=== PATIENT | female | born 1935 | race Caucasian/White ===

== ENCOUNTER 2016-09-27 07:01 | Emergency (ER) | payer MEDICARE, OTHER ==
--- NOTE | 2016-09-27 07:16 | ED.PDOC ---
History of Present Illness - General Chief Complaint: General Stated Complaint: cough/sob Time Seen by Provider: 09/27/16 07:15 Source: patient, RN notes reviewed, Vital Signs reviewed, family - hsband Exam Limitations: no limitations - History of Present Illness Initial Comments: Ms. Calixto,76 y/o female stated had cough /SOB for 3 weeks not getting any better had been on 3 diiferrent antibiotics the last 3 weeks admitted to hospital 2 weeks ago stayed for 5 days treated for pneumonia. Timing/Duration: other - 3 weeks ago Severity: moderate Improving Factors: nothing Worsening Factors: nothing Associated Symptoms: shortness of breath Allergies/Adverse Reactions: Allergies Codeine Allergy (Verified 09/12/16 23:20) Home Medications: Ambulatory Orders Acetaminophen [Tylenol] 325 mg PO Q4HR PRN 09/13/16 Carvedilol 12.5 mg PO BID 09/13/16 Fluoxetine HCl [PROzac] 20 mg PO DAILY 09/13/16 Gabapentin 300 mg PO DAILY 09/13/16 Hydralazine HCl 50 mg PO BID 09/13/16 Losartan Potassium 50 mg PO BID 09/13/16 Omeprazole 20 mg PO DAILY 09/13/16 Benzonatate Perles [Tessalon Perles] 100 mg PO BID PRN 09/27/16 Montelukast Sodium [Singulair] 10 mg PO [facility] #30 tab 09/27/16 predniSONE [Prednisone] 10 mg PO BID #14 tab 09/27/16 Review of Systems - Review of Systems Constitutional: States: malaise EENTM: States: no symptoms reported Respiratory: States: see HPI Cardiology: States: no symptoms reported Gastrointestinal/Abdominal: States: no symptoms reported Genitourinary: States: other - OAB Musculoskeletal: States: no symptoms reported Skin: States: no symptoms reported Neurological: States: no symptoms reported Endocrine: States: no symptoms reported Past Medical History (General) - Patient Medical History Hx Cardiac Disorders: Yes Hx Renal Disease: Yes Surgical History: appendectomy, cholecystectomy, other - pacemaker-bradycardia, colon-diverticulitis,shoulder,cataract - Vaccination History Hx Tetanus, Diphtheria Vaccination: Yes Hx Pneumococcal Vaccination: Yes Family Medical History - Family History Mother Family History: Unknown Hx Cardiac Disease: Yes Hx Family Cancer: Yes - gastric,colon prostate,lung Physical Exam - Physical Exam General Appearance: Alert, Anxious, No apparent distress Eye Exam: bilateral normal Ears, Nose, Throat: hearing grossly normal, normal ENT inspection, normal pharynx Neck: non-tender, full range of motion, supple, normal inspection Respiratory: chest non-tender, no respiratory distress, no accessory muscle use , rhonchi, wheezing, other - speaks in fullsentences Cardiovascular/Chest: normal peripheral pulses, regular rate, rhythm, no edema Peripheral Pulses: radial,right: 2+, radial,left: 2+ Gastrointestinal/Abdominal: normal bowel sounds, non tender, soft Back Exam: normal inspection, no CVA tenderness, no vertebral tenderness Extremity: normal range of motion, non-tender, normal inspection Neurologic: no motor/sensory deficits, alert, normal mood/affect, oriented x 3 Progress - Progress Progress: 09/27/16 08:50 [id number] sinus rhythm noacute changes;CXR-chronic infiltrates no effusion, consolidation pneumothorax - Results/Orders Results/Orders: 09/27/16 07:27 URINALYSIS Stat 09/27/16 07:29 IV Care:Saline Lock per Protoc QSHIFT SVN/Updraft Therapy .ONCE 09/27/16 07:30 EKG STAT 09/27/16 09:00 [facility] Daily Laboratory Results WBC 11.5 K/mm3 (4.8-10.8) H 09/27/16 08:25 RBC 3.36 M/mm3 (4.20-5.40) L 09/27/16 08:25 Hgb 9.7 gm/dL (12.0-16.0) L 09/27/16 08:25 Hct 30.2 % (36.0-47.0) L 09/27/16 08:25 MCV 89.8 fl (81.0-99.0) 09/27/16 08:25 MCH 28.8 pg (27.0-31.0) 09/27/16 08:25 MCHC 32.3 g/dL (33.0-37.0) L 09/27/16 08:25 RDW 15.5 % (11.5-14.5) H 09/27/16 08:25 Plt Count 136 K/mm3 (130-400) 09/27/16 08:25 MPV 10.0 fl (7.40-10.4) 09/27/16 08:25 Absolute Neuts (auto) 9.50 K/uL (1.8-6.8) H 09/27/16 08:25 Absolute Lymphs (auto) 0.90 K/uL (1.0-3.4) L 09/27/16 08:25 Absolute Monos (auto) 0.90 K/uL (0.2-0.8) H 09/27/16 08:25 Absolute Eos (auto) 0.20 K/uL (0.0-0.4) 09/27/16 08:25 Absolute Basos (auto) 0.00 K/uL (0.0-0.1) 09/27/16 08:25 Neutrophils % 82.2 % (42.0-78.0) H 09/27/16 08:25 Lymphocytes % 7.6 % (20.0-50.0) L 09/27/16 08:25 Monocytes % 7.9 % (2.0-9.0) 09/27/16 08:25 Eosinophils % 1.9 % (1.0-5.0) 09/27/16 08:25 Basophils % 0.4 % (0.0-2.0) 09/27/16 08:25 Sodium 138 mmol/L (135-145) 09/27/16 08:25 Potassium 4.1 mmol/L (3.6-5.0) 09/27/16 08:25 Chloride 107 mmol/L (101-111) 09/27/16 08:25 Carbon Dioxide 22 mmol/L (21-31) 09/27/16 08:25 Anion Gap 13.1 (12-18) 09/27/16 08:25 BUN 25 mg/dL (7-18) H 09/27/16 08:25 Creatinine 1.83 mg/dL (0.6-1.3) H 09/27/16 08:25 BUN/Creatinine Ratio 13.7 (10-20) 09/27/16 08:25 Random Glucose 98 mg/dL (70-105) 09/27/16 08:25 Serum Osmolality 280.1 mOsm/L (275-295) 09/27/16 08:25 Calcium 8.1 mg/dL (8.4-10.2) L 09/27/16 08:25 Total Bilirubin 0.9 mg/dL (0.2-1.0) 09/27/16 08:25 AST 23 IU/L (10-42) 09/27/16 08:25 ALT 13 IU/L (10-60) 09/27/16 08:25 Alkaline Phosphatase 53 IU/L (42-121) 09/27/16 08:25 LD Total 213 IU/L (91-180) H 09/27/16 08:25 Serum Total Protein 5.6 gm/dL (6.4-8.2) L 09/27/16 08:25 Albumin 2.8 g/dl (3.2-5.5) L 09/27/16 08:25 Globulin 2.8 gm/dL (2.3-3.5) 09/27/16 08:25 Albumin/Globulin Ratio 1.0 (1.1-1.9) L 09/27/16 08:25 Departure - Departure Clinical Impression: Bronchitis with bronchospasm Time of Disposition: 09:08 Disposition: Discharge to Home or Self Care Condition: Good Instructions: DI for Chronic Bronchitis Referrals: Aristeo Miller MD [Primary Care Provider] - 1-2 Weeks Prescriptions: predniSONE [Prednisone] 10 mg PO BID #14 tab Montelukast Sodium [Singulair] 10 mg PO [facility] #30 tab Home Medications: Ambulatory Orders Acetaminophen [Tylenol] 325 mg PO Q4HR PRN 09/13/16 Carvedilol 12.5 mg PO BID 09/13/16 Fluoxetine HCl [PROzac] 20 mg PO DAILY 09/13/16 Gabapentin 300 mg PO DAILY 09/13/16 Hydralazine HCl 50 mg PO BID 09/13/16 Losartan Potassium 50 mg PO BID 09/13/16 Omeprazole 20 mg PO DAILY 09/13/16 Benzonatate Perles [Tessalon Perles] 100 mg PO BID PRN 09/27/16 Montelukast Sodium [Singulair] 10 mg PO [facility] #30 tab 09/27/16 predniSONE [Prednisone] 10 mg PO BID #14 tab 09/27/16 Additional Instructions: Increase frequency of ALBUTEROL -MDI-2 puffs every 4 hours as needed for cough/ wheezing until better
[2016-09-27] MEDS ORDERED: methylPREDNISolone SODIUM SUC 125 MG/2 ML VIAL IV ONE (07:29)
[2016-09-27] MEDS ORDERED: BENZONATATE PERLES 100 MG CAP PO ONE (07:37)
[2016-09-27] MEDS ORDERED: diphenhydrAMINE HCL 25 MG CAP PO ONE (07:39)
[2016-09-27] MEDS ORDERED: IPRATROPIUM/ALBUTEROL 3 ML VIAL NEB ONE ×3 (07:59→08:56)
[2016-09-27] MEDS ORDERED: MONTELUKAST SODIUM 10 MG TAB ONE (08:06)
[2016-09-27] MEDS ORDERED: MONTELUKAST SODIUM 10 MG TAB PO ONE (08:09)
--- NOTE | 2016-09-27 08:39 | RAD ---
EXAM DESCRIPTION: X-RAY CHEST- TWO VIEWS CLINICAL HISTORY: Cough COMPARISON: 09/12/2016 TECHNIQUE: 2.0 views of the chest FINDINGS: There are no discrete air space infiltrates, pneumothoraces or pleural effusions. Chronic prominence of the interstitial lung markings is again noted, once again most pronounced in the right lower lobe of the lung. The pulmonary vascularity is normal. There is stable position of the wires of the dual chamber right-sided pacemaker. The cardiomediastinal silhouette is stable. IMPRESSION: There are no acute lung parenchymal findings. Electronically signed by: Gordo Tucker MD 09/27/2016 08:37
[2016-09-27 08:44] VITALS: O2SAT 95
[2016-09-27 09:50] VITALS: BP 173/61; TEMP 98.1
[2016-09-27] MEDS ORDERED: MONTELUKAST SODIUM 10 MG TAB PO SCH (21:00)
== END 2016-09-27 09:49 | disposition home or self-care (01) ==
LOC: ER 07:01
DX: J40 Bronchitis, not specified as acute or chronic (principal); R06.02 Shortness of breath; Z88.6 Allergy status to analgesic agent; Z87.01 Personal history of pneumonia (recurrent); Z79.899 Other long term (current) drug therapy; N28.9 Disorder of kidney and ureter, unspecified; Z80.42 Family history of malignant neoplasm of prostate; Z80.1 Family history of malignant neoplasm of trachea, bronchus and lung; Z80.0 Family history of malignant neoplasm of digestive organs; Z95.0 Presence of cardiac pacemaker
CPT/HCPCS: 36415; 71020; 80053; 83615; 85025; 93005; 94640; J2930; J7620; Q0163

== ENCOUNTER → 2016-10-25 | Outpatient (CLI) | payer MEDICARE, OTHER ==
--- NOTE | 2016-10-25 17:24 | CT ---
EXAM DESCRIPTION: CT CHEST WITHOUT IV CONTRAST CLINICAL HISTORY: RESP INFECTION COMPARISON: Chest radiograph obtained on September 27, 2016 TECHNIQUE: Chest CT was performed without IV contrast. FINDINGS: A right-sided cardiac pacemaker and associated leads remain in place without apparent complication. There are tiny bilateral pleural effusions. The thyroid and thoracic inlet are unremarkable. Mural calcifications are noted in the thoracic aorta without aneurysm. There is no hiatal hernia. The heart is at the upper limits of normal size. Sensitivity for detection of adenopathy is limited by lack of IV contrast, but no mediastinal or hilar adenopathy is seen. The central airways are clear. There is no airspace consolidation or lung mass. There is mild platelike atelectasis or scarring in the right lung adjacent to the major fissure with a questionable 6 mm noncalcified nodule at the same location. Visualized portions of the upper abdomen are unremarkable for noncontrast technique. Colonic diverticulosis is only partially included on this exam, but there is no evidence of diverticulitis. There is no fracture or pneumothorax. . IMPRESSION: Borderline cardiomegaly with tiny bilateral pleural effusions, but no pneumonia or other acute intrathoracic abnormality. The possibility of mild CHF should be considered. Questionable 6 mm nodule in the right lung adjacent to the major fissure. As per Fleischner Society guidelines for follow-up and management of pulmonary nodules: For patient at low risk (minimal or absent history of smoking and of other known risk factors), recommend follow-up chest CT at 6-12 months then at 18-24 months if no change. For patient at high risk (history of smoking or of other known risk factors), recommend initial follow-up chest CT at 3-6 months, then at 9-12 and 24 months if no change. Electronically signed by: Carlos A Pang DO 10/25/2016 17:21
== END ==
LOC: CT 13:27
PROVIDERS: ATTEND Nurse Practitioner Family
DX: J06.9 Acute upper respiratory infection, unspecified (principal); J90 Pleural effusion, not elsewhere classified

== ENCOUNTER 2016-11-06 08:45 | Emergency (ER) | payer MEDICARE, OTHER ==
[2016-11-06 09:14] VITALS: TEMP 97
--- NOTE | 2016-11-06 09:18 | ED.PDOC ---
History of Present Illness - General Chief Complaint: GI Problem Stated Complaint: Rectal Bleeding x 1 week, intermittently Time Seen by Provider: 11/06/16 09:07 Source: patient, RN notes reviewed Exam Limitations: no limitations - History of Present Illness Initial Comments: She stated that her rectal bleeding started 7 days ago Tuesday when she went to have bowel movement noted bright bright red blood in stool then stopped.But yesterday he had another episode was advised by he HHn to come to er but declined then today she decided to come.Had previous episode of melena while she was living in [place] and was sent to [facility] for gi evaluation but was given 6 units of blood transfusion and her rectal bleeding stopped. According to her she was told that cause of her bleeding was from her diverticulosis. Had underwent multiple colonoscopies and egd in the past but reported no malignancy.She has history of afib not anticoagulated and only aspirin.She had colon resection for diverticulosis. Timing/Duration: intermittent, other - 7 days ago Improving Factors: nothing Worsening Factors: nothing Associated Symptoms: denies symptoms Allergies/Adverse Reactions: Allergies Codeine Allergy (Verified 09/12/16 23:20) Home Medications: Ambulatory Orders Acetaminophen [Tylenol] 325 mg PO Q4HR PRN 09/13/16 Carvedilol 12.5 mg PO BID 09/13/16 Fluoxetine HCl [PROzac] 20 mg PO DAILY 09/13/16 Gabapentin 300 mg PO DAILY 09/13/16 Hydralazine HCl 50 mg PO BID 09/13/16 Losartan Potassium 50 mg PO BID 09/13/16 Omeprazole 20 mg PO DAILY 09/13/16 Montelukast Sodium [Singulair] 10 mg PO [facility] #30 tab 09/27/16 Review of Systems - Review of Systems Constitutional: States: no symptoms reported EENTM: States: no symptoms reported Respiratory: States: cough - mild non productive Cardiology: States: other - exertional dyspnea Gastrointestinal/Abdominal: States: see HPI Genitourinary: States: no symptoms reported Musculoskeletal: States: no symptoms reported Skin: States: no symptoms reported Neurological: States: no symptoms reported Endocrine: States: no symptoms reported Hematologic/Lymphatic: States: no symptoms reported Past Medical History (General) - Patient Medical History Hx Cardiac Disorders: Yes Hx Congestive Heart Failure: Yes - recnt echocardiog jacob accdg. to patient Hx Pacemaker: Yes Hx Hypertension: Yes Hx Gastroesophageal Reflux: Yes - diverticulosis Hx Renal Disease: Yes Surgical History: appendectomy, cholecystectomy, pacemaker, other - shoulder, colon resection,hernia repair,hysterectomy - Vaccination History Hx Tetanus, Diphtheria Vaccination: Yes Hx Influenza Vaccination: Yes Hx Pneumococcal Vaccination: Yes - Social History Hx Tobacco Use: No Hx Alcohol Use: No Hx Substance Use: No Hx Depression: No - Activities of Daily Living Patient Lives Alone: No Shelter/Assisted Living (if applicable):: [facility] Ability: Independent Eating (Feeding) Ability: Independent Toileting Ability: Independent - Female History Patient : No Family Medical History - Family History Mother Family History: Unknown Hx Cardiac Disease: Yes Hx Family Cancer: Yes - gastric,colon prostate,lung Physical Exam - Physical Exam General Appearance: Alert, Comfortable, No apparent distress Eye Exam: bilateral normal Ears, Nose, Throat: hearing grossly normal, normal ENT inspection, normal pharynx Neck: non-tender, full range of motion, supple Respiratory: chest non-tender, lungs clear, normal breath sounds, no respiratory distress Cardiovascular/Chest: normal peripheral pulses, regular rate, rhythm, no edema, no gallop, no murmur Peripheral Pulses: radial,right: 2+, radial,left: 2+ Gastrointestinal/Abdominal: normal bowel sounds, non tender, soft, no organomegaly, no pulsatile mass Rectal Exam: normal rectal tone, black stool Back Exam: normal inspection, no CVA tenderness, no vertebral tenderness Extremity: normal range of motion, non-tender, normal inspection Neurologic: medical safety director II-XII nml as tested, no motor/sensory deficits, alert Skin Exam: normal color, warm/dry, cyanosis Progress - Results/Orders Results/Orders: 11/06/16 09:25 RH BLOOD TYPE Stat Chest,1 View [RAD] Stat URINALYSIS Stat 11/06/16 09:30 EKG STAT 11/06/16 09:37 B-TYPE NATRIURETIC PEPTIDE/BNP Stat COMPLETE METABOLIC PROFILE Stat Laboratory Results WBC 7.9 K/mm3 (4.8-10.8) 11/06/16 09:37 RBC 3.45 M/mm3 (4.20-5.40) L 11/06/16 09:37 Hgb 10.1 gm/dL (12.0-16.0) L 11/06/16 09:37 Hct 31.0 % (36.0-47.0) L 11/06/16 09:37 MCV 89.8 fl (81.0-99.0) 11/06/16 09:37 MCH 29.2 pg (27.0-31.0) 11/06/16 09:37 MCHC 32.5 g/dL (33.0-37.0) L 11/06/16 09:37 RDW 16.9 % (11.5-14.5) H 11/06/16 09:37 Plt Count 231 K/mm3 (130-400) 11/06/16 09:37 MPV 8.2 fl (7.40-10.4) 11/06/16 09:37 Absolute Neuts (auto) 4.70 K/uL (1.8-6.8) 11/06/16 09:37 Absolute Lymphs (auto) 1.50 K/uL (1.0-3.4) 11/06/16 09:37 Absolute Monos (auto) 0.90 K/uL (0.2-0.8) H 11/06/16 09:37 Absolute Eos (auto) 0.70 K/uL (0.0-0.4) H 11/06/16 09:37 Absolute Basos (auto) 0.10 K/uL (0.0-0.1) 11/06/16 09:37 Neutrophils % 59.8 % (42.0-78.0) 11/06/16 09:37 Lymphocytes % 18.5 % (20.0-50.0) L 11/06/16 09:37 Monocytes % 12.0 % (2.0-9.0) H 11/06/16 09:37 Eosinophils % 8.6 % (1.0-5.0) H 11/06/16 09:37 Basophils % 1.1 % (0.0-2.0) 11/06/16 09:37 PT 11.6 SECONDS (9.4-12.5) 11/06/16 09:37 INR 1.030 11/06/16 09:37 PTT (SP) 37.2 SECONDS (25.1-36.5) H 11/06/16 09:37 Sodium 135 mmol/L (135-145) 11/06/16 09:37 Potassium 3.8 mmol/L (3.6-5.0) 11/06/16 09:37 Chloride 104 mmol/L (101-111) 11/06/16 09:37 Carbon Dioxide 24 mmol/L (21-31) 11/06/16 09:37 Anion Gap 10.8 (12-18) L 11/06/16 09:37 BUN 21 mg/dL (7-18) H 11/06/16 09:37 Creatinine 1.62 mg/dL (0.6-1.3) H 11/06/16 09:37 BUN/Creatinine Ratio 13.0 (10-20) 11/06/16 09:37 Random Glucose 103 mg/dL (70-105) 11/06/16 09:37 Serum Osmolality 273.3 mOsm/L (275-295) L 11/06/16 09:37 Calcium 8.7 mg/dL (8.4-10.2) 11/06/16 09:37 Total Bilirubin 0.5 mg/dL (0.2-1.0) 11/06/16 09:37 AST 23 IU/L (10-42) 11/06/16 09:37 ALT 14 IU/L (10-60) 11/06/16 09:37 Alkaline Phosphatase 64 IU/L (42-121) 11/06/16 09:37 Serum Total Protein 6.4 gm/dL (6.4-8.2) 11/06/16 09:37 Albumin 3.4 g/dl (3.2-5.5) 11/06/16 09:37 Globulin 3.0 gm/dL (2.3-3.5) 11/06/16 09:37 Albumin/Globulin Ratio 1.1 (1.1-1.9) 11/06/16 09:37 Stool Occult Blood Positive 11/06/16 09:37 - EKG/XRAY/CT EKG: Fibrillation - atrial with ventricular rate 61/min Departure - Departure Clinical Impression: Gastrointestinal hemorrhage with melena, Personal history of atrial fibrillation, CHF (NYHA class II, ACC/AHA stage C) Time of Disposition: 11:55 - D/W DR. LEVY -hospitalist -[facility] Disposition: Transfer to Hospital Condition: Good Departure Forms: ED Discharge - Pt. Copy, Patient Portal Self Enrollment Referrals: Aristeo Miller MD [Primary Care Provider] - 1-2 Weeks Home Medications: Ambulatory Orders Acetaminophen [Tylenol] 325 mg PO Q4HR PRN 09/13/16 Carvedilol 12.5 mg PO BID 09/13/16 Fluoxetine HCl [PROzac] 20 mg PO DAILY 09/13/16 Gabapentin 300 mg PO DAILY 09/13/16 Hydralazine HCl 50 mg PO BID 09/13/16 Losartan Potassium 50 mg PO BID 09/13/16 Omeprazole 20 mg PO DAILY 09/13/16 Montelukast Sodium [Singulair] 10 mg PO [facility] #30 tab 09/27/16
[2016-11-06 12:10] VITALS: O2SAT 94
[2016-11-06 12:58] VITALS: BP 134/59
--- NOTE | 2016-11-17 13:44 | RAD ---
PROCEDURE: XR CHEST 1 VIEW HISTORY: cough COMPARISON: 09/27/2016 TECHNIQUE: Single projection of the chest was done. FINDINGS: The dual-chamber right-sided pacemaker leads are stable. There is presence of minimal discoid atelectasis/infiltrate in the right mid lung zone . There are no pneumothoraces or pleural effusions. The pulmonary vascularity is normal. The cardiomediastinal contour is stable . IMPRESSION: There is presence of minimal discoid atelectasis/infiltrate in the right mid lung zone . Location of Interpretation: [facility] Electronically signed by: Gordo Tucker MD 11/06/2016 9:51 AM COMPANY ACCOUNTANT
--- NOTE | 2016-11-22 | RAD ---
PROCEDURE: XR CHEST 1 VIEW HISTORY: cough COMPARISON: 09/27/2016 TECHNIQUE: Single projection of the chest was done. FINDINGS: The dual-chamber right-sided pacemaker leads are stable. There is presence of minimal discoid atelectasis/infiltrate in the right mid lung zone . There are no pneumothoraces or pleural effusions. The pulmonary vascularity is normal. The cardiomediastinal contour is stable . IMPRESSION: There is presence of minimal discoid atelectasis/infiltrate in the right mid lung zone . 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
== END 2016-11-06 12:59 | disposition short-term general hospital (02) ==
LOC: ER 08:45
DX: K92.2 Gastrointestinal hemorrhage, unspecified (principal); I11.0 Hypertensive heart disease with heart failure; I50.9 Heart failure, unspecified; N28.9 Disorder of kidney and ureter, unspecified; Z95.0 Presence of cardiac pacemaker; Z79.899 Other long term (current) drug therapy; I48.91 Unspecified atrial fibrillation; Z88.6 Allergy status to analgesic agent

== ENCOUNTER 2016-11-26 11:27 | Inpatient (IN) | payer MEDICARE, OTHER ==
[2016-11-26] MEDS ORDERED: METOPROLOL TARTRATE INJ 5 MG/5 ML VIAL IV ONE ×2 (11:44→13:08)
[2016-11-26] MEDS ORDERED: ALPRAZolam 0.25 MG TAB PO ONE (11:45)
--- NOTE | 2016-11-26 13:05 | RAD ---
EXAM DESCRIPTION: Chest,2 Views CLINICAL HISTORY: 81 years Female, sob COMPARISON: 06 November 2016 TECHNIQUE: PA/lateral] FINDINGS: A pacemaker with atrial and ventricular leads is seen in place. Cardiac is noted. Pulmonary vascular congestion is seen. Small bilateral pleural effusions are noted. Deformity of right posterior ribs is observed from prior fracturing. IMPRESSION: Findings congestive heart failure observed. The chest has deteriorated from the prior exam. Electronically signed by: Denis Coronel MD 11/26/2016 1:04 PM COOK HELPER [employer]ESS[employer]
[2016-11-26] MEDS ORDERED: FUROSEMIDE INJ 40 MG/4 ML VIAL IV ONE (13:08)
[2016-11-26] MEDS ORDERED: LISINOPRIL 10 MG TAB PO ONE (13:09)
[2016-11-26] MEDS ORDERED: ISOSORBIDE DINITRATE 5 MG TAB PO ONE (13:10)
[2016-11-26] MEDS ORDERED: ISOSORBIDE DINITRATE 5 MG TAB ONE (14:39)
--- NOTE | 2016-11-26 15:19 | ED.PDOC ---
History of Present Illness - General Chief Complaint: Respiratory Problem Stated Complaint: trouble breathing Time Seen by Provider: 11/26/16 11:37 Source: patient Exam Limitations: no limitations - History of Present Illness Initial Comments: the patient is an 81-year-old female presenting to the emergency room secondary to feelings of shortness of breath. The patient reports retaining fluid gradually over the last week. She does have a history of congestive heart failure and I have personally seen her in flash pulmonary edema. The patient is having a mildly active sputum of clear sputum. She does have some orthopnea. She did have an episode of paroxysmal nocturnal dyspnea last night. No fevers. No chest pain. She does feel weak and tired. Systolic blood pressure upon arrival here was in the 220s. She does get very short of breath when her oxygen is taken off. She does require 3 L of oxygen to maintain oxygen saturation greater than 90%. She does have a moderate increased work of breathing. Timing/Duration: 1 week Severity: moderate Improving Factors: nothing Worsening Factors: movement Associated Symptoms: cough, malaise, shortness of breath, weakness Allergies/Adverse Reactions: Allergies Codeine Allergy (Verified 11/26/16 11:40) Other "makes her crazy" Home Medications: Ambulatory Orders Acetaminophen [Tylenol] 325 mg PO Q4HR PRN 09/13/16 Carvedilol 12.5 mg PO BID 09/13/16 Fluoxetine HCl [PROzac] 20 mg PO DAILY 09/13/16 Gabapentin 300 mg PO DAILY 09/13/16 Hydralazine HCl 50 mg PO BID 09/13/16 Losartan Potassium 50 mg PO DAILY 09/13/16 Omeprazole 20 mg PO DAILY 09/13/16 Montelukast Sodium [Singulair] 10 mg PO [facility] #30 tab 09/27/16 Review of Systems - Review of Systems Constitutional: States: malaise, weakness EENTM: States: no symptoms reported Respiratory: States: cough, orthopnea, short of breath Cardiology: States: edema, palpitations - questionable Gastrointestinal/Abdominal: States: no symptoms reported Genitourinary: States: no symptoms reported Musculoskeletal: States: no symptoms reported Skin: States: no symptoms reported Neurological: States: headache - mild Endocrine: States: no symptoms reported All other Systems: No Change from Baseline Past Medical History (General) - Patient Medical History Hx Stroke: No Hx Asthma: Yes Hx Cardiac Disorders: Yes Hx Congestive Heart Failure: Yes Hx Pacemaker: Yes Hx Hypertension: Yes Hx Diabetes: No Hx Gastroesophageal Reflux: Yes - diverticulosis Hx Renal Disease: Yes Hx Cancer: No Surgical History: appendectomy, cholecystectomy, colectomy, pacemaker, tonsillectomy, Hysterectomy - Vaccination History Hx Tetanus, Diphtheria Vaccination: Yes Hx Influenza Vaccination: Yes - 2015 Hx Pneumococcal Vaccination: Yes - 2013 - Social History Hx Tobacco Use: No Hx Chewing Tobacco Use: No Hx Alcohol Use: No Hx Substance Use: No Hx Substance Use Treatment: No Hx Depression: No Hx Physical Abuse: No Hx Emotional Abuse: No Hx Suspected Abuse: No - Activities of Daily Living Snf/Assisted Living (if applicable):: [facility] - Female History Patient : No Family Medical History - Family History Mother Family History: Unknown Hx Cardiac Disease: Yes Hx Family Cancer: Yes - gastric,colon prostate,lung Physical Exam - Physical Exam General Appearance: Alert, Comfortable, No apparent distress Eye Exam: bilateral normal Ears, Nose, Throat: hearing grossly normal, normal ENT inspection, normal pharynx Neck: non-tender, full range of motion, supple Respiratory: chest non-tender, respiratory distress - mild, accessory muscle use - moderate, crackles - bilateral bases Cardiovascular/Chest: normal peripheral pulses, regular rate, rhythm, other - + 1 edema to bilateral lower extremities Peripheral Pulses: radial,right: 2+, radial,left: 2+, dorsalis pedis,right: 2+, dorsalis pedis,left: 2+ Gastrointestinal/Abdominal: non tender - mild ascites noted, soft Rectal Exam: deferred Back Exam: normal inspection, no CVA tenderness, no vertebral tenderness Extremity: normal range of motion, non-tender, normal inspection, no calf tenderness, normal capillary refill 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 The patient received several doses of IV labetalol and has been started on oral medications to help bring her blood pressures down. She is also received a dose of IV Lasix and has diuresed some. She is breathing better at this time his systolic blood pressures are down into the 170s from the 220s. The patient will be admitted for blood pressure control and further diuresis is indicated. Respiratory distress has improved significantly with current measures. Continue oxygen as it is certainly required in this patient. She did not require BiPAP. BNP was markedly elevated consistent with the diagnosis. The patient is frail and there is a high probability of a fatal deterioration if sent out. critical care time spent 25 minutes - Results/Orders Results/Orders: 11/26/16 11:45 Telemetry .CONTINUOUS normal sinus rhythm with occasional PACs. UA [URINALYSIS] Stat pending at this time EKG shows no acute ST segment changes concerning for ischemia. She does have a borderline prolonged QT. Normal sinus rhythm. Levels is normal. Chest x-ray shows significant cephalization and small pleural effusions. This is consistent with CHF. This has worsened since her previous chest x-ray. Laboratory Results - last 24 hr 11/26/16 12:00 WBC 9.5 RBC 3.53 L Hgb 10.3 L Hct 31.4 L MCV 88.9 MCH 29.1 MCHC 32.7 L RDW 16.7 H Plt Count 272 MPV 8.3 Absolute Neuts (auto) 6.70 Absolute Lymphs (auto) 1.50 Absolute Monos (auto) 0.90 H Absolute Eos (auto) 0.30 Absolute Basos (auto) 0.10 Neutrophils % 70.6 Lymphocytes % 16.0 L Monocytes % 9.4 H Eosinophils % 3.1 Basophils % 0.9 PT 11.8 INR 1.040 PTT (SP) 38.5 H Sodium 140 Potassium 3.4 L Chloride 107 Carbon Dioxide 24 Anion Gap 12.4 BUN 17 Creatinine 1.42 H BUN/Creatinine Ratio 12.0 Random Glucose 113 H Serum Osmolality 281.7 Calcium 9.0 Total Bilirubin 0.6 AST 23 ALT 21 Alkaline Phosphatase 66 Creatine Kinase 46 CK-MB (CK-2) 1.8 CK-MB (CK-2) % Not Reportable Troponin I 0.03 B-Natriuretic Peptide 1430.0 H* Serum Total Protein 6.7 Albumin 3.4 Globulin 3.3 Albumin/Globulin Ratio 1.0 L Departure - Departure Clinical Impression: Hypertensive emergency, Acute pulmonary edema Disposition: Admit Patient Home Medications: Ambulatory Orders Acetaminophen [Tylenol] 325 mg PO Q4HR PRN 09/13/16 Carvedilol 12.5 mg PO BID 09/13/16 Fluoxetine HCl [PROzac] 20 mg PO DAILY 09/13/16 Gabapentin 300 mg PO DAILY 09/13/16 Hydralazine HCl 50 mg PO BID 09/13/16 Losartan Potassium 50 mg PO DAILY 09/13/16 Omeprazole 20 mg PO DAILY 09/13/16 Montelukast Sodium [Singulair] 10 mg PO [facility] #30 tab 09/27/16 Decision To Admit - Decistion To Admit Decision to Admit Reason: Medical Nature Decision to Admit Date: 11/26/16 Decision to Admit Time: 15:26
--- NOTE | 2016-11-26 17:11 | HP ---
SUPERVISING PHYSICIAN: Micheal Santo MD CHIEF COMPLAINT: Shortness of breath. HISTORY OF PRESENT ILLNESS: This is an 81 year-old female patient who lives at [place]. She has only been living in [place] for about 7 months. She complained that she has not been able to breathe for several days. She states that she was actually only speaking in very short phrases. She states that she thought she had been retaining fluid over the last few and she said then her stomach was quite distended. She does have a history of congestive heart failure and she has also been with pulmonary edema several months ago and was sent to [facility]. She also complained of some paroxysmal nocturnal dyspnea last night and had to sleep on several pillows. In the Emergency Room, she was found to have a BNP of 1,430. She was also quite hypertensive with her blood pressure in the 200s over 90s. She was given some labetalol as well as some Lasix and was given several oral antihypertensives to bring her blood pressure down. She does have a history of some renal failure but her baseline creatinine is about 1.8 and her creatinine in the Emergency Room was 1.42. She diuresed quite a bit in the Emergency Room but continued to require oxygen and I was called for admission. PAST MEDICAL HISTORY: 1. Congestive heart failure of unknown etiology. 2. Coronary artery disease. 3. Atrial fibrillation followed by Dr. Soares. 4. Hypertension. 5. Diverticulosis. 6. Chronic renal insufficiency being followed by Dr. Benítez. PAST SURGICAL HISTORY: 1. Appendectomy. 2. Cholecystectomy. 3. Colectomy in which she had 9 inches of her colon removed. 4. Pacemaker. 5. Tonsillectomy. 6. Hysterectomy. CURRENT MEDICATIONS: Per the EMR and awaiting verification. ALLERGIES: CODEINE. FAMILY HISTORY: Noncontributory. SOCIAL HISTORY: She denies any tobacco, ETOH or illicit drug use. She lives in [place]. She has 2 children. REVIEW OF SYSTEMS: GENERAL: Complains of weakness and fatigue. Denies any chills or fever. HEENT: Complains of a runny nose but denies any vision changes, ear pain or sore throat. RESPIRATORY: Complains of wheezing and a dry cough as well as shortness of breath. CARDIAC: Denies chest pain, palpitations or tachycardia. ABDOMEN: Denies abdominal pain, nausea, vomiting, diarrhea. GENITOURINARY: Denies hematuria, polyuria or dysuria. MUSCULOSKELETAL: Denies arthralgias or myalgias. NEUROLOGICAL: Denies dizziness, headache or seizures. PHYSICAL EXAMINATION: VITAL SIGNS: She is afebrile. Heart rate 53, blood pressure is now 164/57, respiratory rate 18. 02 saturation was 85% at one point on room air and is now 93% on 2 liters nasal cannula. GENERAL: This is an 81 year-old female who is lying in her hospital bed. She is in no acute distress at this time. HEENT: Normocephalic and atraumatic. Pupils are equal and reactive. Oropharynx is clear. NECK: Supple without mass. There is no discernible jugular venous distention. CHEST: Bilateral crackles noted throughout. There is equal rise and fall of the chest with inspiration and expiration. CARDIOVASCULAR: Bradycardic to regular rate, normal rhythm. ABDOMEN: Soft, nondisplaced, non-tender. Bowel sounds are positive. EXTREMITIES: No cyanosis, clubbing, or edema. SKIN: No rashes or lesions. NEUROLOGIC: She is awake, alert, and oriented x3. LABORATORY: WBC 9.5, hemoglobin 10.3, hematocrit 31.4, potassium 3.4, creatinine 1.42, BNP 1,430. Urine is basically within normal limits. Chest x-ray: Findings of congestive heart failure observed and has deteriorated from prior exam. All other labs and films have been reviewed via the EMR. ASSESSMENT: 1. Acute exacerbation of congestive heart failure of unknown etiology with an elevated BNP of 1.430. 2. Hypertensive crisis that is now slowly resolved. 3. Pulmonary edema. 4. Coronary artery disease. 5. Chronic renal insufficiency presently with a creatinine of 1.2 and a baseline creatinine of 1.8. 6. Hypokalemia. PLAN: We will admit the patient to the hospital. I have restarted her home medications but at this time I will hold her evening dose of Coreg due to her heart rate dropping into the 50s. I have given her additional IV Lasix as well as some p.o. potassium. She has nebulizer treatments ordered. I have also given her a PPI for ulcer prophylaxis as well as Lovenox for DVT prophylaxis. I will try to get an echocardiogram report from [facility] as she is a patient of Dr. Paul's. Repeat her labs in the morning. We will encourage good pulmonary toilet and will follow her closely and follow her as medically needed. Dr. Santo is the collaborating physician available for consultation. #[id number] [facility]ITAL[facility]as[facility]
[2016-11-26] MEDS ORDERED: NITROGLYCERIN 0.4 MG 25 EA TAB SL PRN (18:40)
[2016-11-26] MEDS ORDERED: ALBUTEROL SULFATE 2.5 MG/3 ML VIAL NEB PRN (18:40)
[2016-11-26] MEDS: IV SET AND CAP CHANGE INJ INJ SCH (20:35)
[2016-11-26] MEDS: SODIUM CHLORIDE 0.9% (FLUSH) 10 ML SYG IV SCH (20:39)
[2016-11-26] MEDS: IPRATROPIUM/ALBUTEROL 3 ML VIAL INH SCH (21:41)
[2016-11-26] MEDS ORDERED: POTASSIUM CHLORIDE 20 MEQ TAB PO ONE (23:37)
[2016-11-26] MEDS: CARVEDILOL 12.5 MG TAB PO SCH (23:44)
[2016-11-26] MEDS ORDERED: PANTOPRAZOLE SODIUM IV 40 MG VIAL IV SCH (23:45)
[2016-11-26] MEDS ORDERED: NON-FORMULARY MEDICATION 1 EA MIS (Hydralazine Hcl [Hydralazine Hcl] 50 MG) PO SCH (23:45)
[2016-11-26] MEDS ORDERED: ENOXAPARIN SODIUM 40 MG/0.4 ML SYG SUBCU SCH (23:45)
[2016-11-26] MEDS: SODIUM CHLORIDE 0.9% (FLUSH) 10 ML SYG IV PRN (23:47)
[2016-11-26] MEDS: SODIUM CHLORIDE 0.9% 10 ML VIAL IV PRN (23:47)
[2016-11-27] MEDS ORDERED: LOSARTAN POTASSIUM 25 MG TAB ONE (05:41)
[2016-11-27] MEDS: IPRATROPIUM/ALBUTEROL 3 ML VIAL INH SCH ×4 (07:15→20:02)
[2016-11-27] MEDS: MONTELUKAST SODIUM 10 MG TAB PO SCH ×3 (08:29→21:00)
[2016-11-27] MEDS: LOSARTAN POTASSIUM 25 MG TAB PO SCH (08:30)
[2016-11-27] MEDS: CARVEDILOL 12.5 MG TAB PO SCH ×2 (08:30→21:00)
[2016-11-27] MEDS: GABAPENTIN 300 MG CAP PO SCH (08:30)
[2016-11-27] MEDS: FLUoxetine HCL 20 MG CAP PO SCH (08:30)
[2016-11-27] MEDS: FUROSEMIDE INJ 40 MG/4 ML VIAL IV SCH ×2 (08:30→17:23)
[2016-11-27] MEDS: SODIUM CHLORIDE 0.9% (FLUSH) 10 ML SYG IV SCH ×2 (08:31→21:00)
--- NOTE | 2016-11-27 09:14 | RAD ---
PROCEDURE: Chest,2 Views CLINICAL HISTORY: CHF INDICATION: Same as above COMPARISON: 09/12/2016 and 11/26/2016 TECHNIQUE: PA and and lateral chest radiographs were obtained. FINDINGS: There is stable position of the dual chamber right-sided pacemaker leads. Note is made of old healed right-sided rib fractures. There is chronic thickening of the right horizontal fissure and presence of small bilateral pleural effusions There are no discrete airspace infiltrates or pneumothoraces The pulmonary vascularity is normal The cardiomediastinal silhouette is stable IMPRESSION: There is chronic thickening of the right horizontal fissure and presence of small bilateral pleural effusions, not significantly changed since 11/26/2016 Place of interpretation: [facility]. Electronically signed by: Gordo Tucker MD 11/27/2016 9:14 AM DIRECTOR OF ORTHOPEDICS
[2016-11-27] MEDS ORDERED: POTASSIUM CHLORIDE 20 MEQ TAB PO ONE (13:36)
[2016-11-27] MEDS ORDERED: BUMETANIDE 0.25 MG/ML VIAL IV ONE (13:36)
[2016-11-27] MEDS: guaiFENesin ER TAB 600 MG TAB PO SCH ×2 (14:52→22:00)
--- NOTE | 2016-11-27 16:12 | PN ---
DATE: 11/27/16 SUPERVISING PHYSICIAN: Micheal Santo M.D. SUBJECTIVE: The patient is lying in her bed. She states she feels much better than yesterday. She actually has no complaints of shortness of breath. She does complain of some coughing. She denies any chest pain, abdominal pain, nausea, vomiting or diarrhea. OBJECTIVE: She is afebrile, heart rate 64, blood pressure 141/81, respiratory rate 18, O2 sats 91%. Early this morning, she weighed 140 and it was reported to me a few minutes ago that she has lost 3 pounds since her morning weight. RESPIRATORY: She is essentially clear to auscultation bilaterally. There are still a few fine scattered crackles. There is no notable dyspnea with talking. She can speak in complete sentences. CARDIAC: Regular rate and rhythm. ABDOMEN: Soft, nondistended, non-tender. Bowel sounds are positive. EXTREMITIES: No cyanosis, clubbing or edema. NEUROLOGIC: She is awake, alert and oriented times three. LABORATORY: CBC is basically stable from yesterday with hemoglobin and hematocrit of 9.6 and 29.0. Potassium is slightly low at 3.3 and creatinine is 1.51. Chest x-ray shows chronic thickening of the right horizontal fissure and the presence of small bilateral pleural effusions not significantly changed since yesterday. All other labs and films have been reviewed via the EMR. ASSESSMENT: 1. Acute exacerbation of congestive heart failure with unknown etiology and an elevated BNP of 1430. 2. Hypertensive crisis that has now slowly resolved. 3. Pulmonary edema. 4. Hypokalemia. 5. Coronary artery disease. 6. Chronic renal insufficiency presently with a creatinine of 1.5 and a baseline creatinine of 1.7 to 1.8. PLAN: We will continue present supportive care. I have given her an extra dose of potassium. She is presently on IV Lasix. We should probably consider changing her to p.o. Lasix tomorrow. I did order 1 mg of Bumex to be given but I have cancelled it since she has had a significant weight loss. I have ordered an ambulatory study tomorrow to evaluate her oxygenation. We will encourage good pulmonary hygiene. I have ordered her some Mucinex for the cough. Otherwise we will continue to monitor the patient closely and followup as needed. Dr. Santo is the collaborating physician available for consultation. #[id number] [facility]
--- NOTE | 2016-11-27 18:44 | PCM.CORE ---
Physician DVT/VTE - Prophylaxis Currently: Patient already on anticoagulation therapy - Nurse DVT Assessment & Total Each Risk Factor Represents 3 Points: Age over 75 years DVT Assessment Score: 3 - 3-4 High Risk Treatments: Early Ambulation *, Sequential Compression Device
[2016-11-27] MEDS ORDERED: MONTELUKAST SODIUM 10 MG TAB PO SCH (21:00)
[2016-11-27] MEDS: ENOXAPARIN SODIUM 40 MG/0.4 ML SYG SUBCU SCH (21:00)
[2016-11-27] MEDS: SODIUM CHLORIDE 0.9% 10 ML VIAL IV PRN (21:00)
[2016-11-27] MEDS: PANTOPRAZOLE SODIUM IV 40 MG VIAL IV SCH (21:01)
[2016-11-28] MEDS: IPRATROPIUM/ALBUTEROL 3 ML VIAL INH SCH ×4 (08:45→20:08)
[2016-11-28] MEDS: GABAPENTIN 300 MG CAP PO SCH (09:02)
[2016-11-28] MEDS: FLUoxetine HCL 20 MG CAP PO SCH (09:02)
[2016-11-28] MEDS: guaiFENesin ER TAB 600 MG TAB PO SCH ×2 (09:02→20:48)
[2016-11-28] MEDS: CARVEDILOL 12.5 MG TAB PO SCH ×2 (09:02→20:47)
[2016-11-28] MEDS: FUROSEMIDE INJ 40 MG/4 ML VIAL IV SCH ×2 (09:03→16:58)
[2016-11-28] MEDS: SODIUM CHLORIDE 0.9% (FLUSH) 10 ML SYG IV SCH ×2 (09:05→20:49)
[2016-11-28] MEDS: LOSARTAN POTASSIUM 25 MG TAB PO SCH (09:06)
--- NOTE | 2016-11-28 09:52 | RAD ---
PROCEDURE: Chest,2 Views CLINICAL HISTORY: chf INDICATION: Same as above COMPARISON: 11/27/2016 TECHNIQUE: PA and and lateral chest radiographs were obtained. FINDINGS: There is stable position of the dual chamber right-sided pacemaker leads. Note is made of old healed right-sided rib fractures. Tiny residual small bilateral pleural effusions are still present There are no discrete airspace infiltrates or pneumothoraces. The pulmonary vascularity is normal The cardiomediastinal silhouette is stable IMPRESSION: Tiny residual small bilateral pleural effusions are still present Place of interpretation: Teleradiology. Electronically signed by: Gordo Tucker MD 11/28/2016 9:51 AM GENERATOR REPAIRER
[2016-11-28] MEDS: SODIUM CHLORIDE 0.9% (FLUSH) 10 ML SYG IV PRN (16:58)
--- NOTE | 2016-11-28 18:54 | PN ---
DATE: 11/28/16 SUBJECTIVE: The patient is sitting up in the bed and states that she is still very short of breath and is having some difficulty in speaking in sentences. After walking to the bathroom, she is quite tired. Less peripheral edema is evident. The patient has been on fairly heavy diuresis and this also can be contributing significantly to her current symptoms. Will also place on fluid restrictions so that decreased diuresis will hopefully be sufficient to assist in preventing further renal injury. OBJECTIVE: Afebrile, blood pressure 132/77, pulse 59, pulse oximetry 97% on room air. Weight is 62.1 kilos which is about a 2.7 kg reduction compared to admission. The patient is awake and alert though noticeably weak. Not able to send her home at this time because she is sort of self care at the [facility]. Condition discussed with family. LUNGS: Generally clear. Occasional rhonchi, especially more so on the right than the left. HEART: Tones are otherwise within normal limits. ABDOMEN: Soft. Only a trace of edema which is improved compared to admission. Chest x-ray today reveals much less pulmonary edema compared to admission. LABORATORY: Hemoglobin 10, white count 8,700. Chemistry shows potassium 3.4 which is stable while BUN is up to 25, creatinine up to 1.76 and further followup necessary. Repeat beta natriuretic peptide in the morning. Urine generally clean. No cultures. ASSESSMENT: 1. Chronic congestive heart failure of undetermined etiology and an elevated BNP of 1,430 with fairly significant diuresis. 2. Hypertensive crisis now showing some improvement. 3. Significant pulmonary edema on radiographic exam showing improvement radiographically. 4. Significant weakness possibly related to vigorous diuresis to observe. 5. Hypokalemia persistent with supplementation to be initiated. 6. History of coronary artery disease. 7. History of chronic renal insufficiency presently with creatinine of 1.76. PLAN: Will stop parenteral Lasix and switch to p.o. low dose with fluid restrictions. Potassium supplement started. Aspirin 81 mg daily started in the morning. Increase ambulation and do an ambulation study. Physical Therapy to evaluate for safety of ambulating. Check with Dr. Miller for echocardiogram results from Dr. Ding. Scheduled to see Dr. Benítez, keycase assembler, this Tuesday. Suggest repeat evaluation by cardiology at convenience. #[id number] [facility]
[2016-11-28] MEDS: POTASSIUM CHLORIDE 10 MEQ TAB PO SCH (20:48)
[2016-11-28] MEDS: ENOXAPARIN SODIUM 40 MG/0.4 ML SYG SUBCU SCH (20:48)
[2016-11-28] MEDS: MONTELUKAST SODIUM 10 MG TAB PO SCH (20:49)
[2016-11-28] MEDS: PANTOPRAZOLE SODIUM IV 40 MG VIAL IV SCH (20:49)
[2016-11-28] MEDS ORDERED: ACETAMINOPHEN 325 MG TAB PO PRN (21:34)
[2016-11-29] MEDS: IPRATROPIUM/ALBUTEROL 3 ML VIAL INH SCH ×4 (08:42→19:56)
[2016-11-29] MEDS: CARVEDILOL 12.5 MG TAB PO SCH ×2 (09:23→21:49)
[2016-11-29] MEDS: LOSARTAN POTASSIUM 25 MG TAB PO SCH (09:23)
[2016-11-29] MEDS: FLUoxetine HCL 20 MG CAP PO SCH (09:24)
[2016-11-29] MEDS: guaiFENesin ER TAB 600 MG TAB PO SCH ×2 (09:24→21:49)
[2016-11-29] MEDS: GABAPENTIN 300 MG CAP PO SCH (09:24)
[2016-11-29] MEDS: ASPIRIN (CHEWABLE) 81 MG TAB PO SCH (09:26)
[2016-11-29] MEDS: SODIUM CHLORIDE 0.9% (FLUSH) 10 ML SYG IV SCH ×2 (09:26→21:45)
[2016-11-29] MEDS: FUROSEMIDE 40 MG TAB PO SCH (09:35)
[2016-11-29] MEDS: POTASSIUM CHLORIDE 10 MEQ TAB PO SCH ×2 (09:35→17:43)
--- NOTE | 2016-11-29 14:51 | PN ---
DATE: 11/29/16 SUBJECTIVE: The patient is sitting up in the bed and visiting with her friend. She is very weak today, but in many ways seems to be more alert today than yesterday. She admits that she feels a little better today after stopping the large doses of diuretics yesterday. Still having some difficulty in ambulating and physical therapy evaluation to check on safety of ambulation is suggested. OBJECTIVE: VITAL SIGNS: Afebrile. Pulse 60. Blood pressure 144/63. Room air saturation 94%. Intake and output show fairly good intake at 1100 with 1800 mL of urine output. Weight otherwise stable. LUNGS: Clear. HEART: Regular. ABDOMEN: Somewhat tender in the epigastrium. Otherwise, no masses noted. Bowel tones are present. LABORATORY: Potassium up to 3.6, BUN increased from admission of 17 to 35, creatinine from 1.42 to 2.16. This may be a residual of some of the significant diuresis, but will be need to be addressed overnight with recheck in the morning. Beta natriuretic peptide has dropped from 1,430 on admission down to 167 after significant diuresis. Urinalysis is clean. No cultures obtained. Chest x-ray yesterday showed no significant pulmonary edema at this time. ASSESSMENT: 1. Chronic congestive heart failure of undetermined etiology and an elevated BNP of 1,430, returning towards normal after diuresis. 2. Hypertensive crisis, now improved. 3. Significant pulmonary edema on radiographic exam on admission, showing radiographic improvement with followup. 4. Significant weakness, possibly related and aggravated by the vigorous diuresis, continue to observe with rehabilitation. 5. Hypokalemia, showing improvement with supplementation. 6. History of coronary artery disease. 7. History of chronic renal insufficiency with acute injury noted with elevated BUN and creatinine, possibly secondary to underlying prerenal azotemia with vigorous diuresis with followup and supportive care overnight and reevaluation in the morning. PLAN: We will try a renal protective fluid overnight with D5W and 75 mEq of sodium bicarb. Reevaluate in the morning at which time if stable and safe ambulate after physical therapy evaluation, consider continued outpatient followup with Dr. Benítez and Dr. Miller at [facility]. #[id number] [facility]
[2016-11-29] MEDS ORDERED: DEXTROSE 5% 1000ML 1,000 ML IVS ONE (14:52)
[2016-11-29] MEDS ORDERED: SODIUM BICARBONATE VIAL 50 MEQ/50 ML VIAL ONE (14:53)
[2016-11-29] MEDS: SODIUM BICARBONATE VIAL 75 MEQ in DEXTROSE 5% 1000ML 1,000 ML IVS PRN (14:55)
[2016-11-29] MEDS ORDERED: PANTOPRAZOLE SODIUM TAB 40 MG PO SCH (21:00)
[2016-11-29] MEDS ORDERED: ENOXAPARIN SODIUM 30 MG/0.3 ML SYG SUBCU SCH (21:00)
[2016-11-29] MEDS: MONTELUKAST SODIUM 10 MG TAB PO SCH (21:49)
[2016-11-29] MEDS: IV SET AND CAP CHANGE INJ INJ SCH (21:55)
[2016-11-30] MEDS ORDERED: DEXTROSE 5% 1000ML 1,000 ML IVS ONE (02:31)
[2016-11-30] MEDS ORDERED: SODIUM BICARBONATE VIAL 50 MEQ/50 ML VIAL ONE (02:31)
[2016-11-30] MEDS: SODIUM BICARBONATE VIAL 75 MEQ in DEXTROSE 5% 1000ML 1,000 ML IVS PRN (02:36)
[2016-11-30] MEDS: POTASSIUM CHLORIDE 10 MEQ TAB PO SCH (08:00)
[2016-11-30] MEDS: IPRATROPIUM/ALBUTEROL 3 ML VIAL INH SCH ×2 (09:00→13:44)
[2016-11-30] MEDS: guaiFENesin ER TAB 600 MG TAB PO SCH (09:39)
[2016-11-30] MEDS: ASPIRIN (CHEWABLE) 81 MG TAB PO SCH (09:39)
[2016-11-30] MEDS: FLUoxetine HCL 20 MG CAP PO SCH (09:39)
[2016-11-30] MEDS: GABAPENTIN 300 MG CAP PO SCH (09:40)
[2016-11-30] MEDS: FUROSEMIDE 40 MG TAB PO SCH (09:40)
[2016-11-30] MEDS: CARVEDILOL 12.5 MG TAB PO SCH (09:45)
[2016-11-30] MEDS: LOSARTAN POTASSIUM 25 MG TAB PO SCH (09:45)
[2016-11-30] MEDS: SODIUM CHLORIDE 0.9% (FLUSH) 10 ML SYG IV SCH (11:05)
[2016-11-30 11:31] VITALS: O2SAT 96
[2016-11-30 14:47] VITALS: BP 157/72; TEMP 98
--- NOTE | 2016-11-30 15:00 | DS ---
DISCHARGE DIAGNOSIS: 1. Chronic congestive heart failure of undetermined etiology and requiring further cardiological evaluation and followup. He presents with an elevated beta natriuretic peptide of 1,430, returning towards normal after diuresis. 2. Significant hypertensive crisis, showing improvement. 3. Significant pulmonary edema on radiographic exam, showing radiographic improvement on followup. 4. Significant weakness, possibly aggravated by the vigorous diuresis. 5. Hypokalemia, improved with supplementation. 6. History of coronary artery disease. 7. History of chronic renal insufficiency with acute injury noted with elevated BUN and creatinine, showing improvement with specialized fluid supplementation and monitoring. 8. Chronic cough, possibly aggravated by losartan with followup suggested with decreased dosing from 50 to 25 mg losartan per day. HISTORY OF PRESENT ILLNESS: This 81-year-old, white female is admitted to the hospital from [facility] where she was found to have worsening shortness of breath and congestive symptoms. In the Emergency Room, she was found to have a very elevated BNP of 1,430. She was very hypertensive and required special medicinal intervention. Kidney function was also somewhat deteriorated and showed some further deterioration as the vigorous diuresis continued. She required oxygen and was admitted to the hospital for specialized support and care in an attempt to reverse some of the significant abnormalities noted. LABORATORY: Initial white count 9,500, hemoglobin 10.3, stable during hospital course. Platelet count normal. INR 1.04. Chemistries showed potassium 3.4 and with supplementation was up to 4.2. BUN merlin from 17 to 35 and after supportive treatment was down to 31. Creatinine was from 1.42 up to 2.16, down to 1.9 with therapy. Glucose 117 fasting on discharge. Calcium 8.7. Liver enzymes normal. Troponin 0.03. Beta natriuretic peptide 1,430 on admission and 167 close to the time of discharge. Albumin 3.3. Urinalysis generally clean. No cultures obtained. Repeat chest x-ray shows some small bilateral pulmonary effusions, but pulmonary vascular congestion no longer present. HOSPITAL COURSE: The patient was still weak, but feeling much stronger at the time of discharge. She still has a dry cough and the possibility of the losartan contributing to the cough must be considered. PLAN: The patient was ready for continued outpatient management with Dr. Miller with followup in his clinic in the next week. She will return to [facility] and will resume many of the previous orders put into place. Home medications will be continued with Lasix 20 mg a day, #30 given, KCL 10 mEq taking 2 every morning for the next month to be encouraged and losartan to be taken only half of a 50 mg (or 25 mg) daily instead of 50 to see it will help relieve some of her symptoms. She is to limit her fluids to 1500 mL or less per day. Stay active with walking using a walker with full attention to avoid falls. Decrease the losartan as mentioned before to half of a 50 or 25 mg a day to see if it will decrease her cough. Close followup with Dr. Miller regarding cough and for blood pressure control important. Return if not improving. #[id number] [facility]
== END 2016-11-30 14:35 | disposition home or self-care (01) | DRG 305 ==
LOC: ER 11:27 → MS 17:10
PROVIDERS: ADMIT Family Medicine; ATTEND Emergency Medicine
DX: I16.9 Hypertensive crisis, unspecified (principal); N17.9 Acute kidney failure, unspecified; I13.0 Hypertensive heart and chronic kidney disease with heart failure and stage 1 through stage 4 chronic kidney disease, or unspecified chronic kidney disease; I50.9 Heart failure, unspecified; R53.1 Weakness; E87.6 Hypokalemia; I25.10 Atherosclerotic heart disease of native coronary artery without angina pectoris; N18.9 Chronic kidney disease, unspecified; J45.909 Unspecified asthma, uncomplicated; R05 Cough; T46.5X5A Adverse effect of other antihypertensive drugs, initial encounter; K57.30 Diverticulosis of large intestine without perforation or abscess without bleeding; I48.91 Unspecified atrial fibrillation; Y92.9 Unspecified place or not applicable; Z95.0 Presence of cardiac pacemaker; Z90.49 Acquired absence of other specified parts of digestive tract; Z88.5 Allergy status to narcotic agent; Z79.899 Other long term (current) drug therapy

== ENCOUNTER → 2016-12-03 | Outpatient (CLI) | payer MEDICARE, OTHER | END | disposition home or self-care (01) | LOC: BFHH 10:41 | PROVIDERS: ATTEND Family Medicine | DX: I13.0 Hypertensive heart and chronic kidney disease with heart failure and stage 1 through stage 4 chronic kidney disease, or unspecified chronic kidney disease (principal); I50.32 Chronic diastolic (congestive) heart failure; N18.3 Chronic kidney disease, stage 3 (moderate) ==

== ENCOUNTER → 2016-12-27 | Outpatient (CLI) | payer MEDICARE, OTHER | END | disposition home or self-care (01) | LOC: GMA 12:47 | PROVIDERS: ATTEND Nurse Practitioner Family | DX: N18.9 Chronic kidney disease, unspecified (principal); D63.1 Anemia in chronic kidney disease; D51.3 Other dietary vitamin B12 deficiency anemia ==

== ENCOUNTER → 2017-02-02 | Outpatient (CLI) | payer MEDICARE, OTHER | END | disposition home or self-care (01) | LOC: GMAM 11:43 | PROVIDERS: ATTEND Family Medicine | DX: N18.3 Chronic kidney disease, stage 3 (moderate) (principal); D63.1 Anemia in chronic kidney disease ==

== ENCOUNTER → 2017-03-09 | Outpatient (CLI) | payer MEDICARE, OTHER | END | disposition home or self-care (01) | LOC: GMAM 11:49 | PROVIDERS: ATTEND Family Medicine | DX: N18.3 Chronic kidney disease, stage 3 (moderate) (principal); D63.1 Anemia in chronic kidney disease ==

== ENCOUNTER → 2017-03-30 | Outpatient (CLI) | payer MEDICARE, OTHER | LOC: GMAM 09:55 | PROVIDERS: ATTEND Family Medicine | DX: N18.3 Chronic kidney disease, stage 3 (moderate) (principal); D63.1 Anemia in chronic kidney disease; N39.0 Urinary tract infection, site not specified; I10 Essential (primary) hypertension ==

== ENCOUNTER → 2017-04-06 | Outpatient (CLI) | payer MEDICARE, OTHER ==
--- NOTE | 2017-04-06 14:48 | CT ---
EXAM DESCRIPTION: Abdoment/Pelvis w/o Contrast CLINICAL HISTORY: 81 years, 81 years, Female, Female, ABDOMINAL PAIN COMPARISON: None. TECHNIQUE: CT of the abdomen and pelvis is performed according to our non contrast protocol This exam was performed according to our departmental dose-optimization program, which includes automated exposure control, adjustment of the mA and/or kV according to patient size and/or use of iterative reconstruction technique. FINDINGS: Minor linear scarring or atelectasis at the posterior lateral right lung base and anterior left lung base is present without consolidation or effusion. No free abdominal air or obstruction is noted. No significant hiatal hernia or evidence of pericarditis noted. The unenhanced liver is grossly normal in appearance and an upper normal spleen demonstrates no focal lesion. The pancreas is normal in appearance and the gallbladder appears to be surgically absent with no evidence of ductal dilatation. No adrenal masses are seen. Each kidney is normal in appearance without stone disease or hydronephrosis or obvious mass or cyst. Large and small bowel caliber is normal and normal with moderately extensive diverticulosis throughout the colon without acute inflammation of diverticulitis. No drainable abscess or fluid collection is noted on this noncontrast study. No inflammatory changes in the right lower quadrant or left lower quadrant are noted. Moderate fat-containing umbilical hernia is present additional anterior abdominal wall abnormalities are not apparent. Within the pelvis the uterus is surgically absent and no adnexal mass is seen. The bladder is normally distended without mass. Tentative aortic calcification without aneurysm is present. No retroperitoneal or mesenteric or pelvic adenopathy is seen. The inguinal regions are unremarkable. Advanced degenerative disc disease within the spine at L2-3 and L3-4 is present with normal alignment. Minimal scoliosis of the spine on coronal imaging is evident. IMPRESSION: 1. Diffuse colonic diverticulosis without convincing evidence of acute diverticulitis or evidence of bowel obstruction. 2. Moderate fat-containing umbilical hernia. 3. Prior hysterectomy and presumably prior cholecystectomy with nonidentification of the gallbladder 4. Minor scarring at the lung bases 5. Degenerative change and minimal scoliosis within the mid lumbar spine. Electronically signed by: Aristeo Childs MD 04/06/2017 2:47 PM CDT
== END | disposition home or self-care (01) ==
LOC: CT 08:22
PROVIDERS: ATTEND Family Medicine
DX: Z12.31 Encounter for screening mammogram for malignant neoplasm of breast (principal); R10.9 Unspecified abdominal pain
CPT/HCPCS: 74176; G0202

== ENCOUNTER → 2017-08-15 | Outpatient (CLI) | payer MEDICARE, OTHER | END | disposition home or self-care (01) | LOC: GMAM 09:18 | PROVIDERS: ATTEND Family Medicine | DX: I12.9 Hypertensive chronic kidney disease with stage 1 through stage 4 chronic kidney disease, or unspecified chronic kidney disease (principal); N18.3 Chronic kidney disease, stage 3 (moderate); D63.1 Anemia in chronic kidney disease ==

== ENCOUNTER 2017-10-27 08:10 | Inpatient (IN) | payer MEDICARE, OTHER ==
--- NOTE | 2017-10-27 08:24 | ED.PDOC ---
History of Present Illness - General Chief Complaint: Cardiovascular Problem Stated Complaint: feeling weak/heart pounding Time Seen by Provider: 10/27/17 08:21 Source: patient Exam Limitations: no limitations - History of Present Illness Initial Comments: Angie Calixto 82 y/o female came to er today stating feeling weak since yesterday ,heart pounding ,no appetite mentioned that he had been dealing with viral illness uri for the last one moth no vomiting but felt nauseated,has loose stools but according to her been seen by GI specialist Dr. Giang taking medicine for it also feeling shaky. Timing/Duration: 24 hours Severity: moderate Activities at Onset: none Prior Chest Pain/Cardiac Workup: echocardiography, other - heart pounding Worsening Factors: nothing Nitro Today/Relief: no nitro taken today Aspirin Treatment Today: 81 mg x 1 Associated Symptoms: denies symptoms, loss of appetite, nausea/vomiting, other - see hpi Allergies/Adverse Reactions: Allergies Codeine Allergy (Verified 11/26/16 11:40) Other "makes her crazy" Home Medications: Ambulatory Orders Carvedilol 12.5 mg PO BID 09/13/16 Fluoxetine HCl [Prozac] 20 mg PO DAILY 09/13/16 Gabapentin 300 mg PO DAILY 09/13/16 Hydralazine HCl 50 mg PO BID 09/13/16 Losartan Potassium 25 mg PO QAM #30 tab 11/30/16 Review of Systems - Review of Systems Constitutional: States: chills, malaise EENTM: States: nose congestion Respiratory: States: cough Cardiology: States: palpitations Gastrointestinal/Abdominal: States: diarrhea - chronic Genitourinary: States: no symptoms reported Musculoskeletal: States: no symptoms reported Skin: States: no symptoms reported Neurological: States: no symptoms reported All other Systems: Reviewed and Negative, No Change from Baseline Past Medical History (General) - Patient Medical History Hx Seizures: No Hx Stroke: No Hx Asthma: Yes Hx Cardiac Disorders: Yes - a fib Hx Congestive Heart Failure: Yes Hx Pacemaker: Yes Hx Hypertension: Yes Hx Diabetes: No Hx Gastroesophageal Reflux: Yes - diverticulosis Hx Renal Disease: Yes Hx Cancer: No Hx MRSA: No Surgical History: appendectomy, cholecystectomy, pacemaker, other - hernia repair,hysterectomy,shoulder,colon - Vaccination History Hx Tetanus, Diphtheria Vaccination: Yes Hx Influenza Vaccination: Yes - 2015 Hx Pneumococcal Vaccination: Yes - 2014 - Social History Hx Tobacco Use: No Hx Chewing Tobacco Use: No Hx Alcohol Use: No Hx Substance Use: No Hx Substance Use Treatment: No Hx Depression: No Hx Physical Abuse: No Hx Emotional Abuse: No Hx Suspected Abuse: No - Activities of Daily Living Grooming Ability: Independent Eating (Feeding) Ability: Independent Toileting Ability: Independent - Female History Patient : No Family Medical History - Family History Mother Family History: Unknown Hx Cardiac Disease: Yes Hx Family Cancer: Yes - gastric,colon prostate,lung Physical Exam - Physical Exam General Appearance: Alert, Anxious, Comfortable, No apparent distress Eyes, Ears, Nose, Throat Exam: PERRL/EOMI, normal ENT inspection, TMs normal, pharynx normal Neck: non-tender, full range of motion, supple Respiratory: chest non-tender, lungs clear, normal breath sounds, no respiratory distress Cardiovascular/Chest: normal peripheral pulses, no edema, no gallop, tachycardia - VR 123, irregularly irregular Peripheral Pulses: radial,right: 2+, radial,left: 2+ Gastrointestinal/Abdominal: normal bowel sounds, non tender, soft, no organomegaly Extremity: no pedal edema, no calf tenderness Neurologic: alert, oriented x 3 Skin Exam: normal color, warm/dry Lymphatic: no adenopathy Progress - Progress Progress: 10/27/17 10:16 Last Vital Signs Temp 97.8 F 10/27/17 08:38 Pulse 129 H 10/27/17 09:45 Resp 22 10/27/17 09:45 BP 163/69 10/27/17 09:45 Pulse Ox 93 L 10/27/17 09:45 - Results/Orders Results/Orders: 10/27/17 08:24 URINALYSIS Stat 10/27/17 08:30 EKG STAT 10/27/17 09:47 Sodium Chloride 0.9% 500Ml [NS 500ml] 500 ml IVS ONCE 10/27/17 09:53 Catheter:Straight .ONCE Laboratory Results - last 24 hr 10/27/17 10/27/17 08:59 Unknown WBC 9.6 RBC 3.79 L Hgb 10.9 L Hct 33.7 L MCV 88.9 MCH 28.7 MCHC 32.2 L RDW 15.9 H Plt Count 260 MPV 9.6 Absolute Neuts (auto) 7.60 H Absolute Lymphs (auto) 1.20 Absolute Monos (auto) 0.60 Absolute Eos (auto) 0.10 Absolute Basos (auto) 0.10 Neutrophils % 79.5 H Lymphocytes % 12.7 L Monocytes % 6.2 Eosinophils % 0.6 L Basophils % 1.0 PT 13.3 H INR 1.180 PTT (SP) 36.7 H Sodium 133 L Potassium 4.3 Chloride 102 Carbon Dioxide 17 L Anion Gap 18.3 H BUN 35 H Creatinine 1.97 H BUN/Creatinine Ratio 17.8 Random Glucose 151 H Serum Osmolality 277.3 Lactic Acid 2.0 Calcium 8.8 Magnesium 1.9 Total Bilirubin 1.0 Direct Bilirubin 0.2 Indirect Bilirubin 0.8 AST 69 H ALT 62 H Alkaline Phosphatase 71 Creatine Kinase 38 CK-MB (CK-2) 2.0 CK-MB (CK-2) % Not Reportable Troponin I 0.02 Serum Total Protein 6.8 Albumin 3.8 - EKG/XRAY/CT EKG: Atrial, Fibrillation Comments: VR- 123 XRAY: chest - cardiomegaly,vascular congestion mild,no interval change Departure - Departure Clinical Impression: Malaise and fatigue, Dehydration, moderate, Atrial fibrillation with RVR, Renal insufficiency Time of Disposition: 11:44 Disposition: Admit Patient Condition: Fair Departure Forms: Patient Portal Self Enrollment Referrals: Aristeo Miller MD [Primary Care Provider] - 1-2 Weeks Home Medications: Ambulatory Orders Carvedilol 12.5 mg PO BID 09/13/16 Fluoxetine HCl [Prozac] 20 mg PO DAILY 09/13/16 Gabapentin 300 mg PO DAILY 09/13/16 Hydralazine HCl 50 mg PO BID 09/13/16 Losartan Potassium 25 mg PO QAM #30 tab 11/30/16 Decision To Admit - Decistion To Admit Decision to Admit Reason: Admit from ER Decision to Admit Date: 10/27/17 - D/W Bree Louie-SONI/Hospitalist Decision to Admit Time: 11:41
--- NOTE | 2017-10-27 08:46 | RAD ---
EXAM DESCRIPTION: Chest,1 View CLINICAL HISTORY: sob COMPARISON: 28 November 2016 TECHNIQUE: AP portable chest FINDINGS: A pacemaker with atrial and ventricular leads is seen in place. Myocardial megaly is noted. Mild interstitial lung disease and pulmonary vascular congestion are observed. There is been no significant interval change from the prior exam. IMPRESSION: Persistent pulmonary vascular congestion and mild interstitial lung disease and cardiomegaly are observed. There is been no significant interval change. Electronically signed by: Denis Coronel MD 10/27/2017 8:45 AM [facility]
[2017-10-27] MEDS ORDERED: SODIUM CHLORIDE 0.9% 500ML 500 ML IVS ONE (09:47)
[2017-10-27] MEDS ORDERED: diltiaZEM HCL TAB 30 MG TAB PO ONE (09:51)
--- NOTE | 2017-10-27 12:19 | HP ---
SUPERVISING PHYSICIAN: Micheal Santo M.D. CHIEF COMPLAINT: Palpitations and weakness. HISTORY OF PRESENT ILLNESS: This is an 82 year-old female patient who came to the Emergency Room today after feeling very weak and having palpitations. Her weakness became very apparent yesterday but she has been sick with a flu-like illness since September 16 and was seen in clinic. It was treated like the flu and she said she has never gotten over it. She has felt weak and tired since then but approximately 2 to 3 days ago she started having palpitations. She was diaphoretic and she had been in bed off and on for the last 2 to 3 days. She has a history of atrial fibrillation and she said about 2 weeks ago she had a spell of palpitations but it went away, and today the palpitations did not go away so she came to the Emergency Room. She has also had a cough and felt very short of breath with this. In the Emergency Room, she was found to be in atrial fibrillation with rapid ventricular response with her heart rate in the upper 130s. Her blood pressure was 163/69, it had gone as high as 163/107. She was given some IV Cardizem as well as some oral Cardizem. Eventually her heart rate came down to the 80s. Her vital signs were stable. She was afebrile while in the Emergency Room. White count was 9.6 but she did have an early left shift and her hemoglobin was 10.9, hematocrit 33.7. Chemistry showed sodium 133, potassium 4.3, chloride 102, carbon dioxide 17, BUN 35, creatinine 1.97, glucose 151, lactic acid 2. AST 69, ALT 62. Urinalysis was within normal limits. Chest x-ray showed persistent pulmonary vascular congestion and mild interstitial lung disease with cardiomegaly. There is no significant interval change. I was called for admission. PAST MEDICAL HISTORY: 1. Congestive heart failure of unknown etiology, 2. Coronary artery disease. 3. Atrial fibrillation followed by Dr. Soares. 4. Hypertension. 5. Diverticulosis. 6. Chronic renal insufficiency followed by Dr. Benítez with a baseline creatinine of 1.8. 7. Gastroesophageal reflux disease. 8. Depression. PAST SURGICAL HISTORY: 1. Appendectomy. 2. Hysterectomy. 3. Right rotator cuff repair. 4. Pacemaker insertion in 2013. 5. Tonsillectomy. 6. Colon resection for diverticulitis having removed 9 inches of her colon. 7. Bilateral cataract surgery. 8. Hernia repair. 9. Cholecystectomy. CURRENT MEDICATIONS: Per the EMR and awaiting verification. ALLERGIES: CODEINE. SOCIAL HISTORY: She denies any tobacco, ETOH or illicit drug use. She lives in [place]. She has 2 children. REVIEW OF SYSTEMS: GENERAL: Positive for weakness, fatigue and low-grade fever. Denies any weight changes. HEENT: Positive for runny nose, sinus symptoms. Denies ear pain or sore throat. RESPIRATORY: Positive for a mild productive cough but mostly dry. Some shortness of breath and wheezing. CARDIOVASCULAR: Positive for palpitations and tachycardia. Denies chest pain. GASTROINTESTINAL: Positive for diarrhea that has been going on for many months. She sees Dr. Giang. Positive for nausea. Negative for vomiting or constipation. GENITOURINARY: Negative for dysuria, hematuria or dysuria. SKIN: Negative for rashes or lesions, NEUROLOGIC: Positive for headache. Negative for dizziness or seizures. PHYSICAL EXAMINATION: VITAL SIGNS: She is afebrile, heart rate 88, blood pressure 144/83, respiratory rate 18, O2 sat is 93% on room air. GENERAL: This is an 82 year-old female patient lying in her hospital bed. She looks to be moderately ill. HEENT: Normocephalic and atraumatic. Pupils are equal and reactive. Oropharynx is clear. She does have some clear nasal drainage. NECK: Supple without mass. RESPIRATORY: A few scattered crackles throughout, decreased breath sounds throughout. CHEST: There is equal rise and fall of the chest with inspiration and expiration. CARDIOVASCULAR: Regular rate and rhythm. GASTROINTESTINAL: Abdomen is soft, nondistended, non-tender. Bowel sounds are positive. EXTREMITIES: No cyanosis, clubbing or edema. SKIN: No rashes or lesions noted. NEUROLOGIC: She is awake, alert and oriented times three. LABORATORY: Labs and films are as per the History of Present Illness. ASSESSMENT: 1. Atrial fibrillation with rapid ventricular response. 2. Flu-like symptoms since August 2017. She does have a normal white blood count but has a mild left shift. 3. Congestive heart failure of unknown etiology. 4. Chronic renal insufficiency with a baseline creatinine of 1.8. 5. Hypertension. 6. Gastroesophageal reflux disease. PLAN: We will place the patient in Observation in the hospital. I will give her a low dose of Cardizem 30 mg every 6 hours for now. She will need to have followup with Dr. Soares, her ct technologist. I have given her Mucinex for her cough as well as 1 dose of IV steroids. I have also done blood cultures as well as a flu swab and a BNP. I have given her 1 liter of fluids as I think she is slightly dehydrated, but I will watch it closely as she does have the history of congestive heart failure. Will do routine labs for in the morning. I have given Protonix for ulcer prophylaxis and Lovenox for DVT prophylaxis. Hopefully she can be discharged in the next day or so with close followup with Dr. Miller as well as seeing her ct technologist, Dr. Soares. We will continue to monitor the patient closely and follow as needed. Dr. Santo is the collaborating physician available for consultation. #[id number] [facility]as[facility]
[2017-10-27] MEDS ORDERED: ALBUTEROL SULFATE 2.5 MG/3 ML VIAL NEB ONE (12:44)
[2017-10-27] MEDS ORDERED: ALBUTEROL SULFATE 2.5 MG/3 ML VIAL NEB PRN (13:07)
[2017-10-27] MEDS ORDERED: methylPREDNISolone SODIUM SUC 125 MG/2 ML VIAL IV ONE (14:46)
[2017-10-27] MEDS ORDERED: DEX 5% W/NACL 0.9% 1000ML 1,000 ML IVS ONE (14:54)
[2017-10-27] MEDS: IV SET AND CAP CHANGE INJ INJ SCH (14:54)
[2017-10-27] MEDS ORDERED: ENOXAPARIN SODIUM 30 MG/0.3 ML SYG SUBCU SCH (15:00)
[2017-10-27] MEDS: ALBUTEROL SULFATE 2.5 MG/3 ML VIAL NEB SCH ×2 (16:31→20:30)
[2017-10-27] MEDS: diltiaZEM HCL TAB 30 MG TAB PO SCH (17:51)
[2017-10-27] MEDS: guaiFENesin ER TAB 600 MG TAB PO SCH (20:46)
[2017-10-28] MEDS: diltiaZEM HCL TAB 30 MG TAB PO SCH ×5 (00:01→19:28)
[2017-10-28] MEDS ORDERED: OMEPRAZOLE CAP 20 MG CAP ONE (03:18)
[2017-10-28] MEDS: OMEPRAZOLE CAP 20 MG CAP PO SCH ×2 (06:13→06:15)
--- NOTE | 2017-10-28 07:32 | RAD ---
EXAM DESCRIPTION: Chest,2 Views CLINICAL HISTORY: chf hx COMPARISON: October 27, 2017 FINDINGS: Two-view chest x-ray shows enlargement of the cardiac silhouette. Pulmonary vasculature remains increased prominent. Right subclavian dual-lead transvenous cardiac pacemaker is stable. Interstitial thickening in the perihilar to lower lobe regions is again seen to slightly more prominent. There is blunting of the posterior costophrenic angle seen on lateral projection. Postsurgical changes to the right shoulder are seen. Remote right-sided rib trauma is noted. IMPRESSION: Findings suggest mild congestive heart failure previous exam. Mild interval increased perihilar infiltrates or atelectasis. Small bilateral pleural effusions are seen. Electronically signed by: Daron Melgar MD 10/28/2017 7:31 AM [facility]
[2017-10-28] MEDS: ALBUTEROL SULFATE 2.5 MG/3 ML VIAL NEB SCH ×4 (08:18→20:43)
[2017-10-28] MEDS: guaiFENesin ER TAB 600 MG TAB PO SCH ×2 (09:35→20:38)
[2017-10-28] MEDS: ENOXAPARIN SODIUM 30 MG/0.3 ML SYG SUBCU SCH (09:37)
[2017-10-28] MEDS: FLUoxetine HCL 20 MG CAP PO SCH (11:16)
[2017-10-28] MEDS: CARVEDILOL 12.5 MG TAB PO SCH ×2 (11:16→20:38)
[2017-10-28] MEDS: GABAPENTIN 300 MG CAP PO SCH (11:16)
[2017-10-28] MEDS: FUROSEMIDE INJ 40 MG/4 ML VIAL IV SCH ×2 (11:17→17:27)
[2017-10-28] MEDS: LOSARTAN POTASSIUM 25 MG TAB PO SCH (11:20)
[2017-10-28] MEDS: BALSALAZIDE DISODIUM 750 MG PO SCH ×2 (19:10→20:37)
--- NOTE | 2017-10-28 19:22 | PN ---
DATE: 10/28/17 SUPERVISING PHYSICIAN: Micheal Santo M.D. SUBJECTIVE: Earlier this morning the patient had significant complaints of shortness of breath and she also had tachypnea. She was unable to speak except in short phrases. She felt much worse than yesterday. The patient's BNP was checked and it was 876. The patient was given some Lasix. This afternoon, she is feeling much better. She has mild complaints of shortness of breath. Denies chest pain, nausea, vomiting or diarrhea. OBJECTIVE: VITAL SIGNS: She is afebrile, heart rate 88, it is slightly irregular. Blood pressure is 160/91, respiratory rate has gotten as high as 28 , presently it is 18. O2 sat has been as low as 92, it is now 98%. RESPIRATORY : Mild scattered crackles throughout. CARDIAC: Regular rate, irregular rhythm. GASTROINTESTINAL: Abdomen is soft, nondistended, non-tender. Bowel sounds are positive. EXTREMITIES: No cyanosis, clubbing or edema. NEUROLOGIC: She is awake, alert and oriented times three. LABORATORY: BNP is 876, sodium 136, potassium 4.1, chloride 109, carbon dioxide 17, BUN 35. Creatinine has improved to 1.7. Liver enzymes are within normal limits. White count 6.2, hemoglobin 10, hematocrit 30.4, platelets 239, neutrophils 88.1. Preliminary blood cultures show no growth after 24 hours. RADIOLOGY: Chest x-ray per radiology interpretation shows findings that suggest mild congestive heart failure with mild interval increased perihilar infiltrates or atelectasis and small bilateral pleural effusions. All other labs and films were reviewed via the EMR. ASSESSMENT: 1. Exacerbation of congestive heart failure with mild diastolic dysfunction. Her LV ejection fraction is 60% on echo done on 09/13/16. 2. Atrial fibrillation with rapid ventricular response on admission to the Emergency Room controlled with Adenocard and Cardizem. She continues on 30 mg of Cardizem every 6 hours. 3. Flu-like symptoms since August 2017. Has a normal white blood count with a left shift. 4. Acute on chronic renal failure with a baseline creatinine of 1.8. 5. Hypertension. 6. Gastroesophageal reflux disease. PLAN: We will continue present supportive care. Due to her CHF exacerbation I have changed her from Observation to a full admission. She has scheduled IV Lasix and she has not been on Lasix as an outpatient, so she will need to be titrated off of the IV Lasix and started on p.o. at some point. I will also continue on her Cardizem for right now. She is getting 30 mg every 6 hours and that is controlling her rate. She will need close followup with her bean sorter, Dr. Soares, as she has not seen him in over a year and he may need to adjust or change her medications. She is on Coreg as well as an ARB and her last echo was in August 2016, so she will need another echo at some point. Her renal function has improved overnight and I will check her labs again tomorrow, but she will need close followup with Dr. Benítez. At this point , I will hold on the chest x-ray and that can be repeated in a day or so. She lives at [place] and will need to be discharged on home health which she has had [facility] in the past. Will continue to monitor the patient closely and follow as needed. Dr. Santo is the collaborating physician available for consultation. #[id number] [facility]
[2017-10-29] MEDS ORDERED: diltiaZEM HCL TAB 30 MG TAB PO SCH
[2017-10-29] MEDS: diltiaZEM HCL TAB 30 MG TAB PO SCH ×4 (01:41→21:23)
[2017-10-29] MEDS: OMEPRAZOLE CAP 20 MG CAP PO SCH (06:25)
[2017-10-29] MEDS: GABAPENTIN 300 MG CAP PO SCH (10:00)
[2017-10-29] MEDS: FUROSEMIDE INJ 40 MG/4 ML VIAL IV SCH (10:00)
[2017-10-29] MEDS: CARVEDILOL 12.5 MG TAB PO SCH ×2 (10:00→21:23)
[2017-10-29] MEDS: LOSARTAN POTASSIUM 25 MG TAB PO SCH (10:00)
[2017-10-29] MEDS: FLUoxetine HCL 20 MG CAP PO SCH (10:01)
[2017-10-29] MEDS: guaiFENesin ER TAB 600 MG TAB PO SCH (10:01)
[2017-10-29] MEDS: BALSALAZIDE DISODIUM 750 MG PO SCH ×2 (10:01→21:25)
[2017-10-29] MEDS: ENOXAPARIN SODIUM 30 MG/0.3 ML SYG SUBCU SCH (10:01)
[2017-10-29] MEDS ORDERED: LEVALBUTEROL NEBS 1.25 MG/3 ML VIAL NEB PRN (10:30)
[2017-10-29] MEDS: ALBUTEROL SULFATE 2.5 MG/3 ML VIAL NEB SCH (10:50)
[2017-10-29] MEDS: LEVALBUTEROL NEBS 1.25 MG/3 ML VIAL NEB SCH (16:08)
--- NOTE | 2017-10-29 16:20 | PN ---
DATE: 10/29/17 SUPERVISING PHYSICIAN: Micheal Santo M.D. SUBJECTIVE: The patient is resting in bed. She has been tolerating Cardizem and has not had any additional abnormal rhythms, and is maintaining a controlled ventricular rate. She has much improvement in her respiratory efforts and is without any obvious respiratory complaints this morning. She has had no chest pains, nausea, vomiting or diarrhea. OBJECTIVE: VITAL SIGNS: She remains afebrile, temperature 97.2, pulse 92, blood pressure 110/73, respirations 20, satting 95% on room air. I's and O's show a negative balance of 1520 with 1230 in, 2750 out. Weight is 65.4 kg. CHEST: Lungs are clear to auscultation bilaterally. There are no crackles or rales noted. HEART: Slightly irregular rate and rhythm but controlled ventricular rate on monitor. ABDOMEN: Soft, non-tender. Positive bowel sounds. EXTREMITIES: No clubbing, cyanosis or edema. NEUROLOGIC: She is alert and oriented times three. LABORATORY: CBC today shows a white count of 10,800 with hemoglobin 9.5, hematocrit 29.5, platelet count 254,000. Differential shows a continued left shift. Chemistries: Potassium 4.5, sodium is normal at 138, BUN is up to 47, creatinine is up to 2.2 with magnesium 1.9, calcium 8.8, osmolality is up to 289. MICROBIOLOGY: Blood cultures remain negative at 48 hours. ASSESSMENT: 1. Exacerbation of congestive heart failure with mild diastolic dysfunction with a left ventricular ejection fraction of 60% noted on echo done on 09/13/16. The patient is responding well to diuresis with Lasix. 2. Atrial fibrillation with rapid ventricular response initially on admission requiring Adenocard and Cardizem. The patient has required further management of Cardizem. She is up to 60 mg every 6 hours and is showing a continuous controlled ventricular rate. 3. Flu-like symptoms noted on August 2017. Has a normal white blood count with a left shift. 4. Acute on chronic renal failure with a baseline creatinine of 1.5 showing acute worsening more likely secondary to aggressive diuresis and treatment of # 1. 5. Hypertension, stable. 6. Gastroesophageal reflux disease. PLAN: Today, will continue with Lasix 40 mg IV and anticipate hopefully transitioning to p.o. in the morning. She will probably need to go home on some p.o. Lasix as well as some potassium as she has been on both in the past. Currently she is on Cardizem 60 mg every 6 hours which appears to be holding her rate steady at a well controlled range. Anticipate tomorrow if she has no longer a need of any further titration of Cardizem, starting her on a long- acting Cardizem more likely 180 or 240 mg daily with close observation. She remains on Coreg as well as an ARB. Again as noted on her history, last echocardiogram was 2015. She certainly will need an updated echo at some point at discharge. Will plan to repeat laboratory studies in the morning and again if she shows good control of her heart rate tonight, transition her to p.o. Cardizem long-acting. Anticipation of discharging Tuesday as well as start her on some p.o. Lasix. Until then, will continue to monitor and treat appropriately. One discharged, she will need close clinical followup with [facility] as well as followup with Dr. Santo. #[id number] [facility]
[2017-10-29] MEDS: SODIUM CHLORIDE 0.9% (FLUSH) 10 ML SYG IV PRN (21:26)
[2017-10-30] MEDS: LEVALBUTEROL NEBS 1.25 MG/3 ML VIAL NEB SCH ×3 (00:20→15:46)
[2017-10-30] MEDS: diltiaZEM HCL TAB 30 MG TAB PO SCH ×2 (02:07→08:05)
[2017-10-30] MEDS: OMEPRAZOLE CAP 20 MG CAP PO SCH (06:29)
--- NOTE | 2017-10-30 07:36 | RAD ---
EXAM: Two view chest. INDICATION: CHF. COMPARISON: Chest x-ray: 10/28/2017. FINDINGS: Cardiac silhouette: Mildly enlarged with a right chest wall pacemaker in place Kelsy: Mild pulmonary vascular congestion Lobar consolidation: None. Pleural effusion: Small pleural effusions may be present Pneumothorax: None. Other: None. Bones: Old healed right-sided rib fracture is noted Other: None. IMPRESSION: Pulmonary vascular congestion Electronically signed by: Supa Lanier MD 10/30/2017 7:35 AM [facility] Workstation: [id number]
[2017-10-30] MEDS: LOSARTAN POTASSIUM 25 MG TAB PO SCH (08:05)
[2017-10-30] MEDS: CARVEDILOL 12.5 MG TAB PO SCH ×2 (08:05→20:30)
[2017-10-30] MEDS: guaiFENesin ER TAB 600 MG TAB PO SCH ×3 (08:05→20:30)
[2017-10-30] MEDS: FLUoxetine HCL 20 MG CAP PO SCH (08:06)
[2017-10-30] MEDS: ENOXAPARIN SODIUM 30 MG/0.3 ML SYG SUBCU SCH (08:06)
[2017-10-30] MEDS: GABAPENTIN 300 MG CAP PO SCH (08:06)
[2017-10-30] MEDS: FUROSEMIDE 40 MG TAB PO SCH (08:08)
[2017-10-30] MEDS: BALSALAZIDE DISODIUM 750 MG PO SCH ×2 (08:25→20:30)
[2017-10-30] MEDS: IV SET AND CAP CHANGE INJ INJ SCH (13:45)
[2017-10-30] MEDS: SODIUM CHLORIDE 0.9% (FLUSH) 10 ML SYG IV PRN (20:30)
[2017-10-31] MEDS: OMEPRAZOLE CAP 20 MG CAP PO SCH (06:17)
[2017-10-31] MEDS: POTASSIUM CHLORIDE 20 MEQ TAB PO SCH (07:50)
--- NOTE | 2017-10-31 08:22 | PN ---
SUPERVISING PHYSICIAN: Micheal Santo MD DATE: 10/30/17 SUBJECTIVE: The patient says she feels good. She has been tolerating change in medication to long-acting Cardizem without any abnormal ventricular rhythms. She has had no nausea, vomiting or chest pains. OBJECTIVE: VITAL SIGNS: Temperature 97.8. Pulse 95. Blood pressure 111/70. Respirations 20. Saturation 97% on room air on 0.5 liter at rest. I&Os show negative balance 507 with 1143 in, 1650 out. Weight 65.4 kg. CHEST: Lungs clear to auscultation bilaterally, just slightly diminished towards the bases. HEART: Slightly irregular rate and rhythm with a controlled ventricular rate. ABDOMEN: Soft, nontender. Positive bowel sounds. EXTREMITIES: No cyanosis, clubbing or edema. NEUROLOGIC: Alert and oriented times three. LABORATORY: Electrolytes today are within normal limits. Potassium 4.3, BUN still elevated at 53 with creatinine being up to 2.29, calcium 8.7. MICROBIOLOGY: Blood cultures remained negative after 3 days. RADIOLOGY: Repeat chest x-ray today per radiologic interpretation of single view chest shows just pulmonary vascular congestion. ASSESSMENT: 1. Exacerbation of congestive heart failure with mild diastolic dysfunction with a left ventricular ejection fraction of 60% noted on echocardiogram done on 09/13/16. The patient is responding well to diuresis with Lasix. 2. Atrial fibrillation with rapid ventricular response initially on admission requiring Adenocard and Cardizem administration. The patient has remained with a controlled ventricular rate on Cardizem 60 mg q.6h. and has transitioned to Cardizem CD 240 mg. 3. Flu-like symptoms noted on August 2017with normal white blood count with a left shift on admission. 4. Acute on chronic renal failure with a baseline creatinine of 1.5 showing acute worsening, more likely secondary to aggressive diuresis and treatment of # 1. 5. Hypertension, stable. 6. Gastroesophageal reflux disease. PLAN: We will transition the patient to p.o. Lasix today 20 mg as well as started on p.o. Cardizem CD with close monitoring and anticipation of discharging tomorrow. If she shows to be stable, anticipate discharging tomorrow to continue with Cardizem 240 mg daily with close followup with her primary care provider, Dr. Santo as well as her rail car unloader. She is also on Coreg and an ARB and at some point will need an updated echocardiogram. Until discharge, we will continue to monitor the patient closely and treat appropriately. [facility][id number] [facility]
[2017-10-31] MEDS: BALSALAZIDE DISODIUM 750 MG PO SCH ×2 (08:32→20:38)
[2017-10-31] MEDS: CARVEDILOL 12.5 MG TAB PO SCH ×2 (08:32→20:39)
[2017-10-31] MEDS: GABAPENTIN 300 MG CAP PO SCH (08:32)
[2017-10-31] MEDS: FUROSEMIDE 40 MG TAB PO SCH (08:32)
[2017-10-31] MEDS: LOSARTAN POTASSIUM 25 MG TAB PO SCH (08:33)
[2017-10-31] MEDS: FLUoxetine HCL 20 MG CAP PO SCH (08:33)
[2017-10-31] MEDS: ENOXAPARIN SODIUM 30 MG/0.3 ML SYG SUBCU SCH (08:33)
[2017-10-31] MEDS: guaiFENesin ER TAB 600 MG TAB PO SCH ×2 (08:33→20:40)
[2017-10-31] MEDS: LEVALBUTEROL NEBS 1.25 MG/3 ML VIAL NEB SCH ×3 (09:08→16:30)
[2017-10-31] MEDS ORDERED: AMIODARONE IV (LOAD) 150 MG in DEXTROSE 5% 100ML 100 ML IVPB ONE (10:50)
[2017-10-31] MEDS ORDERED: DEXTROSE 5% 100ML 100 ML IVPB ONE (11:16)
[2017-10-31] MEDS ORDERED: AMIODARONE HCL 150 MG/3 ML VIAL IVPB ONE (11:16)
--- NOTE | 2017-10-31 16:32 | PN ---
DATE: 10/31/17 SUPERVISING PHYSICIAN: Aristeo Miller M.D. SUBJECTIVE: The patient feels good today. No shortness of breath. No palpitations. She was changed to a long-acting Cardizem yesterday, however this morning her heart rate is in the 120s. OBJECTIVE: Blood pressure is 112/76, heart rate 127, respiratory rate 18, temperature 97.1, oxygen saturation 98%. GENERAL: Ms. Calixto is an 82 year-old female in no active distress. HEENT: Head is normocephalic and atraumatic. EYES: Pupils are equal and reactive. NOSE: No drainage. THROAT: Moist mucosa. NECK: Supple. Midline trachea. There is no jugular venous distention. CHEST : Symmetrical with equal rise and fall of the chest with inspiration and expiration. Lung sounds are a little diminished in the bases, otherwise clear to auscultation bilaterally. CARDIOVASCULAR: Irregular rate and rhythm which is atrial fibrillation with rapid ventricular response per the case monitor. ABDOMEN: Soft, positive bowel sounds. GENITOURINARY: Exam is deferred. EXTREMITIES: Lower extremities have no significant edema. NEUROLOGIC: The patient is alert. LABORATORY: Chemistry this morning showed sodium 140, potassium 3.6, chloride 110, CO2 21, BUN 46, creatinine 2.16, glucose 96, calcium 8.5. ASSESSMENT: 1. Congestive heart failure exacerbation. 2. Atrial fibrillation with rapid ventricular response. 3. Acute on chronic renal failure. 4. Hypertension. PLAN: Given the fact that her heart rate is still in the 120s, I did discuss the case with her art manager, Dr. Soares. He stated at this point we could attempt to utilize Amiodarone. He wanted to give 150 mg IV bolus followed by 400 mg p.o. b.i.d. He also wanted to start the patient on anticoagulation with Eliquis. He stated he will be in town on November 08 and can followup with her at that point. Therefore we will give her Amiodarone and start her on a p.o. dosing of not only the Amiodarone but the Eliquis. If her rate is controlled overnight, she will go home tomorrow on these new medications and followup with Dr. Soares as an outpatient along with her primary care physician. #[id number] [facility]
[2017-10-31] MEDS: AMIODARONE HCL 200 MG TAB PO SCH (20:39)
[2017-10-31] MEDS: APIXABAN 2.5 MG TAB PO SCH (20:39)
[2017-10-31] MEDS: SODIUM CHLORIDE 0.9% (FLUSH) 10 ML SYG IV SCH (20:40)
[2017-11-01] MEDS: LEVALBUTEROL NEBS 1.25 MG/3 ML VIAL NEB SCH ×4 (00:11→23:34)
[2017-11-01] MEDS: OMEPRAZOLE CAP 20 MG CAP PO SCH (06:06)
[2017-11-01] MEDS: POTASSIUM CHLORIDE 20 MEQ TAB PO SCH (08:08)
[2017-11-01] MEDS: LOSARTAN POTASSIUM 25 MG TAB PO SCH (08:08)
[2017-11-01] MEDS: AMIODARONE HCL 200 MG TAB PO SCH ×2 (08:08→20:07)
[2017-11-01] MEDS: FLUoxetine HCL 20 MG CAP PO SCH (08:09)
[2017-11-01] MEDS: guaiFENesin ER TAB 600 MG TAB PO SCH ×2 (08:09→20:07)
[2017-11-01] MEDS: SODIUM CHLORIDE 0.9% (FLUSH) 10 ML SYG IV SCH ×2 (08:09→20:06)
[2017-11-01] MEDS: GABAPENTIN 300 MG CAP PO SCH (08:09)
[2017-11-01] MEDS: FUROSEMIDE 40 MG TAB PO SCH (08:10)
[2017-11-01] MEDS: APIXABAN 2.5 MG TAB PO SCH ×2 (08:10→20:10)
[2017-11-01] MEDS: METOPROLOL TARTRATE 25 MG TAB PO SCH ×2 (08:13→17:04)
[2017-11-01] MEDS: BALSALAZIDE DISODIUM 750 MG PO SCH ×2 (08:14→20:15)
--- NOTE | 2017-11-01 11:53 | PN ---
SUPERVISING PHYSICIAN: Aristeo Miller MD DATE: 11/01/17 SUBJECTIVE: She has not really had any changes overnight. She is not complaining of any shortness of breath or complications at this time. The nurses reported no overnight events. OBJECTIVE: VITAL SIGNS: Blood pressure 137/80. Heart rate 103. Respiratory rate 18. Temperature 98.1. Oxygen saturation 96%. GENERAL: Ms. Calixto is an 82 year-old female in no active distress currently. HEENT: Normocephalic, atraumatic. Pupils are equal and reactive. No nasal drainage. Throat with moist mucosa. NECK: Supple. Midline trachea. There is no visible jugular venous distention. CHEST: Symmetrical with equal rise and fall of the chest with inspiration and expiration. Lung sounds are diminished in the bases, but no rales or wheezing. CARDIOVASCULAR: Irregular rate and rhythm which currently is about 119 per the food concession manager. ABDOMEN: Soft, positive bowel sounds. EXTREMITIES: Lower extremities with no edema. Good peripheral pulses. NEUROLOGIC: The patient is alert. LABORATORY: Chemistry shows sodium 138, potassium 3.7, chloride 107, CO2 20, BUN 40, creatinine 1.99, glucose 114, calcium 8.5. ASSESSMENT: 1. Congestive heart failure exacerbation, improved. 2. Atrial fibrillation with rapid ventricular response. 3. Acute on chronic renal failure. 4. Hypertension. PLAN: 1. Her heart rate seems to be a little bit better than it was. She was initiated on the amiodarone yesterday and has not gotten the 150 mg IV bolus of amiodarone and one dose of the 400 mg p.o. Heart rate is still anywhere from 106 to 127 at any given time. I also initiated the patient on Eliquis yesterday for anticoagulation. At this point, I feel like metoprolol may provide a little bit better rate control than carvedilol, so I am going to stop the carvedilol and put her metoprolol 25 mg b.i.d. We will continue the amiodarone and the Eliquis. As stated before, Dr. Soares is her burial vault maker and will be in town on 11/08/17. She will be discharged by then and can followup at that point. If we can get her rate in the 90s to low 100s, then she can be discharged as her congestive heart failure is currently not an issue. [facility][id number] [facility]
[2017-11-01] MEDS: METOPROLOL TARTRATE 50 MG TAB PO SCH (19:15)
[2017-11-01] MEDS ORDERED: METOPROLOL TARTRATE 25 MG TAB ONE (20:00)
[2017-11-02] MEDS: OMEPRAZOLE CAP 20 MG CAP PO SCH (06:06)
[2017-11-02] MEDS: POTASSIUM CHLORIDE 20 MEQ TAB PO SCH (08:10)
[2017-11-02] MEDS: METOPROLOL TARTRATE 50 MG TAB PO SCH (08:10)
[2017-11-02] MEDS: LEVALBUTEROL NEBS 1.25 MG/3 ML VIAL NEB SCH (08:10)
[2017-11-02] MEDS: BALSALAZIDE DISODIUM 750 MG PO SCH (08:46)
[2017-11-02] MEDS: FLUoxetine HCL 20 MG CAP PO SCH (08:51)
[2017-11-02] MEDS: AMIODARONE HCL 200 MG TAB PO SCH (08:51)
[2017-11-02] MEDS: LOSARTAN POTASSIUM 25 MG TAB PO SCH (08:51)
[2017-11-02] MEDS: GABAPENTIN 300 MG CAP PO SCH (08:51)
[2017-11-02] MEDS: FUROSEMIDE 40 MG TAB PO SCH (08:51)
[2017-11-02] MEDS: guaiFENesin ER TAB 600 MG TAB PO SCH (08:52)
[2017-11-02] MEDS: SODIUM CHLORIDE 0.9% (FLUSH) 10 ML SYG IV SCH (08:52)
[2017-11-02] MEDS: APIXABAN 2.5 MG TAB PO SCH (08:52)
[2017-11-02 15:55] VITALS: BP 101/73; TEMP 97.8; O2SAT 97
--- NOTE | 2017-11-03 08:21 | DS ---
SUPERVISING PHYSICIAN: Aristeo Miller MD ADMISSION DIAGNOSIS: 1. Atrial fibrillation with rapid ventricular response. 2. Flu-like symptoms. 3. Congestive heart failure exacerbation. 4. Chronic renal insufficiency. 5. Hypertension. 6. Gastroesophageal reflux disease. DISCHARGE DIAGNOSIS: 1. Atrial fibrillation with rapid ventricular response, improved. 2. Flu-like symptoms, resolved. 3. Congestive heart failure exacerbation, resolved. 4. Chronic renal insufficiency. 5. Hypertension. 6. Gastroesophageal reflux disease. HOSPITAL COURSE: This is an 82-year-old female who came into the hospital with weakness and palpitations. She apparently had some flu-like symptoms that started back on 09/16/17. Apparently she never felt like she got over it completely. She was noted to be in atrial fibrillation with rapid ventricular response and was actually placed on Cardizem 30 mg q.6h. initially. This was increased and eventually changed to a long-acting Cardizem. On Tuesday, her heart rate was still in the 120s. I contacted her tool grinder operator, Dr. Soares, who wanted to put her on amiodarone and Eliquis for anticoagulation. Through this time, her congestive heart failure exacerbation resolved. However, over the next three days from Tuesday, we were attempted to control her heart rate. On Tuesday, I changed her carvedilol to metoprolol. I increased the dose and we finally got a little bit better heart rate control. Therefore, she will be discharged today back to her assisted living with home health. She is in stable condition. DISCHARGE MEDICATIONS: 1. Amiodarone 400 mg p.o. b.i.d. 2. Lasix 20 mg p.o. daily. 3. Metoprolol 50 mg p.o. b.i.d. 4. Eliquis 2.5 mg p.o. b.i.d. CONDITION: Stable. DIET: Cardiac diet. FOLLOWUP: Appointment with Dr. Miller on 11/07/17 at 10:[address] Soares on 11/08/17 at 12:30. ACTIVITY: As per home health and assisted living facility. #[id number] [facility]
== END 2017-11-02 14:30 | disposition home health service (06) | DRG 308 ==
LOC: ER 08:10 → MS 12:17 → OBSVTOIN 10-28 10:27
PROVIDERS: ADMIT Nurse Practitioner Acute Care; ATTEND Nurse Practitioner
DX: I48.91 Unspecified atrial fibrillation (principal); I50.33 Acute on chronic diastolic (congestive) heart failure; I13.0 Hypertensive heart and chronic kidney disease with heart failure and stage 1 through stage 4 chronic kidney disease, or unspecified chronic kidney disease; N17.9 Acute kidney failure, unspecified; E86.0 Dehydration; N18.9 Chronic kidney disease, unspecified; R51 Headache; K21.9 Gastro-esophageal reflux disease without esophagitis; J45.909 Unspecified asthma, uncomplicated; J11.1 Influenza due to unidentified influenza virus with other respiratory manifestations; I25.10 Atherosclerotic heart disease of native coronary artery without angina pectoris; F32.9 Major depressive disorder, single episode, unspecified; Z95.0 Presence of cardiac pacemaker; Z90.49 Acquired absence of other specified parts of digestive tract; Z88.5 Allergy status to narcotic agent

== ENCOUNTER 2017-11-04 08:06 | Emergency (ER) | payer MEDICARE, OTHER ==
--- NOTE | 2017-11-04 08:22 | ED.PDOC ---
History of Present Illness - General Chief Complaint: Cardiovascular Problem Stated Complaint: palpitations, nausea Time Seen by Provider: 11/04/17 08:15 Source: patient Additional Information: 82 YEAR OLD [facility] PRESENTS TODAY WITH CHIEF COMPLAINTS OF PALPITATIONS AND SHORTNESS OF BREATH ONSET GRADUAL SINCE YESTERDAY SHE WAS IN THE HOSPITAL FOR 6 DAYS UNTIL YESTERDAY - History of Present Illness Timing/Duration: 24 hours Severity: mild Improving Factors: nothing Worsening Factors: nothing Associated Symptoms: denies symptoms Allergies/Adverse Reactions: Allergies Codeine Allergy (Verified 10/27/17 19:22) Other "makes her crazy" Home Medications: Ambulatory Orders Fluoxetine HCl [Prozac] 20 mg PO DAILY 09/13/16 Gabapentin 300 mg PO DAILY 09/13/16 Losartan Potassium 25 mg PO QAM #30 tab 11/30/16 Balsalazide Disodium 750 mg PO BID 10/27/17 Amiodarone HCl [Cordarone] 400 mg PO BID #60 tab 11/02/17 Apixaban [Eliquis] 2.5 mg PO BID #60 tab 11/02/17 Furosemide Tab [Lasix Tab] 20 mg PO DAILY #30 tab 11/02/17 Metoprolol Tartrate 50 mg PO BID #60 tab 11/02/17 Potassium Chloride Tab [K-Dur] 20 meq PO DAILYBK tab 11/02/17 Review of Systems - Review of Systems Constitutional: States: no symptoms reported EENTM: States: no symptoms reported Respiratory: States: short of breath Cardiology: States: chest pain, palpitations Gastrointestinal/Abdominal: States: no symptoms reported Genitourinary: States: no symptoms reported Musculoskeletal: States: no symptoms reported Skin: States: no symptoms reported Neurological: States: no symptoms reported Endocrine: States: no symptoms reported Hematologic/Lymphatic: States: no symptoms reported Past Medical History (General) - Patient Medical History Hx Seizures: No Hx Stroke: No Hx Asthma: No Hx of COPD: No Hx Cardiac Disorders: Yes - a fib Hx Congestive Heart Failure: Yes Hx Pacemaker: Yes Hx Hypertension: Yes Hx Diabetes: No Hx Gastroesophageal Reflux: Yes - diverticulosis Hx Renal Disease: Yes Hx Cancer: No Hx MRSA: No - Vaccination History Hx Tetanus, Diphtheria Vaccination: Yes Hx Influenza Vaccination: Yes - 2015 Hx Pneumococcal Vaccination: Yes - 2013 - Social History Hx Tobacco Use: No Hx Chewing Tobacco Use: No Hx Alcohol Use: No Hx Substance Use: No Hx Substance Use Treatment: No Hx Depression: No Hx Physical Abuse: No Hx Emotional Abuse: No Hx Suspected Abuse: No - Female History Patient : No Family Medical History - Family History Mother Family History: Unknown Living Status: Hx Family Asthma: No Hx Family Congestive Heart Failure: No Hx Family Hypertension: No Hx Family Stroke: No Hx Cardiac Disease: Yes Hx Family Diabetes: No Hx Family Cancer: Yes - gastric,colon prostate,lung Physical Exam - Physical Exam General Appearance: Alert, Anxious Ears, Nose, Throat: hearing grossly normal, normal ENT inspection, normal pharynx Neck: non-tender, full range of motion, supple Respiratory: chest non-tender, lungs clear, normal breath sounds Cardiovascular/Chest: normal peripheral pulses, no edema, no gallop, no JVD, tachycardia Peripheral Pulses: radial,right: 2+, radial,left: 2+, femoral,right: 2+, femoral ,left: 2+ Gastrointestinal/Abdominal: normal bowel sounds, non tender, soft, no organomegaly Extremity: normal range of motion, non-tender, normal inspection Neurologic: package collector II-XII nml as tested, no motor/sensory deficits, alert, normal mood/affect, oriented x 3 Lymphatic: no adenopathy Departure - Departure Clinical Impression: Congestive heart failure, Tachycardia, Atrial fibrillation with RVR Disposition: Discharge to Home or Self Care Condition: Fair Departure Forms: ED Discharge - Pt. Copy, Patient Portal Self Enrollment Instructions: DI for Chest Pain Referrals: Aristeo Miller MD [Primary Care Provider] - 1-2 Weeks Home Medications: Ambulatory Orders Fluoxetine HCl [Prozac] 20 mg PO DAILY 09/13/16 Gabapentin 300 mg PO DAILY 09/13/16 Losartan Potassium 25 mg PO QAM #30 tab 11/30/16 Balsalazide Disodium 750 mg PO BID 10/27/17 Amiodarone HCl [Cordarone] 400 mg PO BID #60 tab 11/02/17 Apixaban [Eliquis] 2.5 mg PO BID #60 tab 11/02/17 Furosemide Tab [Lasix Tab] 20 mg PO DAILY #30 tab 11/02/17 Metoprolol Tartrate 50 mg PO BID #60 tab 11/02/17 Potassium Chloride Tab [K-Dur] 20 meq PO DAILYBK tab 11/02/17 Transfer to Outside Facility - Transfer Information Accepting Provider:: FABIAN GARCIA Accepting Facility: [facility] Reason for Transfer: specialized care not available - ATRIAL FIBRILLATION WITH RVR CHF CHRONIC KIDNEY INJURY
[2017-11-04] MEDS: METOPROLOL TARTRATE INJ 5 MG/5 ML VIAL IV ONE (08:53)
[2017-11-04] MEDS: SODIUM CHLORIDE 0.9% (FLUSH) 10 ML SYG IV PRN (08:53)
--- NOTE | 2017-11-04 08:53 | RAD ---
EXAM DESCRIPTION: Chest,1 View CLINICAL HISTORY: palpitations COMPARISON: October 30, 2017 FINDINGS: A dual-lead cardiac pacemaker remains in place. There are several superimposed EKG leads. The heart is at the upper limits of normal size, stable. Mediastinal contours are otherwise unremarkable. No airspace consolidation or pleural effusion is identified. The central bronchovascular markings are only slightly indistinct. The lung volumes are within normal range. Postoperative changes are noted in the right shoulder. No pneumothorax or acute fracture. IMPRESSION: Stable borderline cardiomegaly with possible mild central pulmonary vascular congestion. Electronically signed by: Carlos A Pang MD 11/04/2017 8:52 AM [facility]
[2017-11-04] MEDS ORDERED: SODIUM CHLORIDE 0.9% 100ML 0 ML IVPB ONE (10:40)
[2017-11-04] MEDS ORDERED: diltiaZEM DRIP 125 MG/25 ML VIAL IVPB ONE (10:40)
[2017-11-04] MEDS: diltiaZEM DRIP 125 MG in SODIUM CHLORIDE 0.9% 100ML 100 ML IVPB SCH (11:16)
[2017-11-04] MEDS: SODIUM CHLORIDE 0.9% 1000ML 500 ML IVS ONE (11:28)
[2017-11-04 13:31] VITALS: BP 126/77; TEMP 97.8; O2SAT 95
== END 2017-11-04 13:31 | disposition short-term general hospital (02) ==
LOC: ER 08:06
DX: I48.91 Unspecified atrial fibrillation (principal); I11.0 Hypertensive heart disease with heart failure; I50.9 Heart failure, unspecified; R00.0 Tachycardia, unspecified; Z79.01 Long term (current) use of anticoagulants; Z95.0 Presence of cardiac pacemaker; Z79.899 Other long term (current) drug therapy
CPT/HCPCS: 36415; 71045; 80048; 82550; 82553; 83880; 84484; 85025; 85610; 85730; 93005; 94760; J7030

== ENCOUNTER → 2017-11-14 | Outpatient (CLI) | payer MEDICARE, OTHER | LOC: BFHH 10:30 | PROVIDERS: ATTEND Family Medicine | DX: I13.0 Hypertensive heart and chronic kidney disease with heart failure and stage 1 through stage 4 chronic kidney disease, or unspecified chronic kidney disease (principal) ==

== ENCOUNTER → 2017-11-22 | Outpatient (CLI) | payer MEDICARE, OTHER | LOC: GMAM 11:48 | PROVIDERS: ATTEND Family Medicine | DX: D64.9 Anemia, unspecified (principal); K92.1 Melena ==

== ENCOUNTER 2017-12-15 17:50 | Emergency (ER) | payer MEDICARE, OTHER ==
[2017-12-15] MEDS ORDERED: SODIUM CHLORIDE 0.9% (FLUSH) 10 ML SYG IV PRN (18:26)
--- NOTE | 2017-12-15 18:34 | ED.PDOC ---
History of Present Illness - General Source: patient, family Exam Limitations: no limitations - History of Present Illness Initial Comments: PT PRESENTS TO THE ED WITH COMPLAINT OF FEVER, CHILLS AND LLQ ABDOMINAL PAIN X 1 DAY. PT HAS A HISTORY OF DIVERTICULITIS REQUIRING PARTIAL COLON RESECTION SEVERAL YEARS AGO. PT DENIES, NAUSEA, VOMITING, OR ANY OTHER SYMPTOMS SUCH COUGH OR CONGESTION. Timing/Duration: 4-6 hours Severity: moderate Improving Factors: nothing Worsening Factors: nothing Associated Symptoms: fever/chills, loss of appetite <Dahlia Mcneil - Last Filed: 12/15/17 18:30> <Felix Miller - Last Filed: 12/15/17 22:32> - General Chief Complaint: Fever Stated Complaint: fever, abdominal pain Time Seen by Provider: 12/15/17 18:26 - History of Present Illness Allergies/Adverse Reactions: Allergies Codeine Allergy (Verified 10/27/17 19:22) Other "makes her crazy" Home Medications: Ambulatory Orders Gabapentin 300 mg PO DAILY 09/13/16 Balsalazide Disodium 750 mg PO BID 10/27/17 Amiodarone HCl [Cordarone] 400 mg PO BID #60 tab 11/02/17 Furosemide Tab [Lasix Tab] 20 mg PO DAILY #30 tab 11/02/17 Albuterol Inhaler [Ventolin Hfa Inhaler] 2 puff INH PRN 12/15/17 Aspirin [Aspirin Regimen Low Dose/] 81 mg PO DAILY 12/15/17 Carvedilol [Coreg] 12.5 mg PO BID 12/15/17 Ciprofloxacin [Cipro] 250 mg PO Q12H #14 tablet 12/15/17 Diltiazem HCl Coated Beads [Cartia Xt] 120 mg PO DAILY 12/15/17 Dorzolamide HCl [Dorzolamide HCl] 1 drop BOTH_EYES BID 12/15/17 Fluoxetine HCl [PROzac] 20 mg PO DAILY 12/15/17 Fluticasone Propionate (Nasal) [Fluticasone Propionate] 50 mcg NA DAILY Guaifenesin [Mucinex] 600 mg PO PRN 12/15/17 Hydralazine HCl 50 mg PO BID 12/15/17 Latanoprost 0.005% Ophth [Xalatan 0.005% Ophthalmic Drops] 1 drop BOTH_EYES BEDTIME 12/15/17 Metoprolol Tartrate [Lopressor] 50 mg PO BID 12/15/17 Omeprazole [Prilosec Cap] 20 mg PO BID 12/15/17 Review of Systems - Review of Systems Constitutional: States: chills, fever EENTM: Denies: ear pain, nose congestion, throat pain Respiratory: Denies: cough, short of breath Cardiology: Denies: chest pain, palpitations Gastrointestinal/Abdominal: States: abdominal pain, diarrhea Genitourinary: Denies: dysuria, frequency Musculoskeletal: Denies: joint pain, joint swelling Skin: Denies: dryness, lesions Neurological: Denies: headache, numbness <WalkerRehanvinayak H - Last Filed: 12/15/17 18:30> Past Medical History (General) - Patient Medical History Hx Seizures: No Hx Stroke: No Hx Dementia: No Hx Asthma: No Hx of COPD: No Hx Cardiac Disorders: - afib Hx Congestive Heart Failure: Yes Hx Pacemaker: Yes Hx Hypertension: Yes Hx Thyroid Disease: No Hx Diabetes: No Hx Gastroesophageal Reflux: Yes - diverticulosis Hx Renal Disease: No Hx Cancer: No Hx MRSA: No Surgical History: appendectomy, cholecystectomy, pacemaker, Hysterectomy, other - Vaccination History Hx Tetanus, Diphtheria Vaccination: Yes Hx Influenza Vaccination: Yes - 2016 Hx Pneumococcal Vaccination: Yes - 2013 - Social History Hx Tobacco Use: No Hx Chewing Tobacco Use: No Hx Alcohol Use: No Hx Substance Use: No Hx Substance Use Treatment: No Hx Depression: No Hx Physical Abuse: No Hx Emotional Abuse: No Hx Suspected Abuse: No - Activities of Daily Living [facility] applicable[facility]:: [facility] - Female History Patient : No <WalkerRehanvinayak H - Last Filed: 12/15/17 18:30> Family Medical History - Family History Mother Family History: Unknown Living Status: Hx Family Asthma: No Hx Family Congestive Heart Failure: No Hx Family Hypertension: No Hx Family Stroke: No Hx Cardiac Disease: Yes Hx Family Diabetes: No Hx Family Cancer: Yes - gastric,colon prostate,lung <WalkerRehannie H - Last Filed: 12/15/17 18:30> Physical Exam - Physical Exam General Appearance: Alert, Comfortable, No apparent distress, Well Developed, Well Groomed, Well Hydrated Ears, Nose, Throat: hearing grossly normal Respiratory: lungs clear, normal breath sounds, no respiratory distress Cardiovascular/Chest: regular rate, rhythm, no murmur Gastrointestinal/Abdominal: soft, tenderness - IN THE LLQ Neurologic: no motor/sensory deficits, alert, normal mood/affect, oriented x 3 Skin Exam: normal color, warm/dry <TarunRehanvinayak H - Last Filed: 12/15/17 18:30> Progress - Progress Progress: 12/15/17 22:27 the patient is an 82-year-old female presenting secondary to some abdominal pain and fever primarily worse today. Laboratory work and CT scans are reassuring. It is possible this is a viral gastroenteritis. She was given some IV fluids. It is also possible this may be very early diverticulitis. To that end, the patient will be placed on ciprofloxacin twice daily for 7 days. This will also cover her small urinary tract infection. Tylenol and Motrin can be used to control the fever. She should follow-up with her primary care doctor in 1-2 days. ER warnings were given for any worsening. - Results/Orders Results/Orders: 12/15/17 18:26 IV Care:Saline Lock per Protoc QSHIFT Sodium Chloride 0.9% (Flush) [Saline Flush Syringe] 10 ml IV PRN PRN 12/15/17 18:28 Hold Metformin x 48Hrs [id number] 12/15/17 18:30 EKG STAT 12/15/17 20:46 URINE CULTURE W/COLONY COUNT Stat 12/15/17 22:26 Ciprofloxacin [Cipro] 500 mg PO ONCE ONE Laboratory Results - last 24 hr 12/15/17 12/15/17 12/15/17 18:30 18:30 18:30 WBC 9.2 RBC 3.99 L Hgb 11.3 L Hct 34.2 L MCV 85.7 MCH 28.3 MCHC 33.1 RDW 16.4 H Plt Count 238 MPV 9.0 Absolute Neuts (auto) 7.30 H Absolute Lymphs (auto) 0.80 L Absolute Monos (auto) 0.90 H Absolute Eos (auto) 0.10 Absolute Basos (auto) 0.10 Neutrophils % 79.6 H Lymphocytes % 8.4 L Monocytes % 10.0 H Eosinophils % 1.0 Basophils % 1.0 Sodium 134 L Potassium 4.5 Chloride 104 Carbon Dioxide 19 L Anion Gap 15.5 BUN 38 H Creatinine 2.18 H BUN/Creatinine Ratio 17.4 Random Glucose 110 H Serum Osmolality 277.9 Calcium 8.8 Total Bilirubin 0.7 Direct Bilirubin < 0.1 Indirect Bilirubin 0.6 AST 31 ALT 14 Alkaline Phosphatase 67 Serum Total Protein 7.1 Albumin 3.8 Urine Color Urine Appearance Urine pH Ur Specific [place] Urine Protein Urine Glucose (UA) Urine Ketones Urine Blood Urine Nitrite Urine Bilirubin Urine Urobilinogen Ur Leukocyte Esterase Urine RBC Urine WBC Ur Epithelial Cells Urine Bacteria 12/15/17 20:46 WBC RBC Hgb Hct MCV MCH MCHC RDW Plt Count MPV Absolute Neuts (auto) Absolute Lymphs (auto) Absolute Monos (auto) Absolute Eos (auto) Absolute Basos (auto) Neutrophils % Lymphocytes % Monocytes % Eosinophils % Basophils % Sodium Potassium Chloride Carbon Dioxide Anion Gap BUN Creatinine BUN/Creatinine Ratio Random Glucose Serum Osmolality Calcium Total Bilirubin Direct Bilirubin Indirect Bilirubin AST ALT Alkaline Phosphatase Serum Total Protein Albumin Urine Color Yellow Urine Appearance Clear Urine pH 5.5 Ur Specific [place] 1.015 Urine Protein 100 H Urine Glucose (UA) Negative Urine Ketones Negative Urine Blood Negative Urine Nitrite Negative Urine Bilirubin Negative Urine Urobilinogen 0.2 Ur Leukocyte Esterase Small H Urine RBC 0-1 Urine WBC 5-10 H Ur Epithelial Cells 0-1 Urine Bacteria 1+ chest x-ray appears benign. CT of the abdomen and pelvis fails to show any acute pathology for the fever. The patient is feeling better with the fever coming down <Felix Miller L - Last Filed: 12/15/17 22:32> Departure <Dahlia Mcneil - Last Filed: 12/15/17 18:30> - Departure Diet: regular diet Activity: increase activity as tolerated <Felix Miller - Last Filed: 12/15/17 22:32> - Departure Clinical Impression: Gastroenteritis Urinary tract infection Qualifiers: Urinary tract infection type: site unspecified Hematuria presence: without hematuria Qualified Code(s): N39.0 - Urinary tract infection, site not specified Disposition: Discharge to Home or Self Care Condition: Fair Departure Forms: ED Discharge - Pt. Copy, Patient Portal Self Enrollment Instructions: DI for Bacterial Gastroenteritis -- Adult Referrals: Aristeo Miller MD [Primary Care Provider] - 1-2 Weeks Prescriptions: Ciprofloxacin [Cipro] 250 mg PO Q12H #14 tablet Home Medications: Ambulatory Orders Gabapentin 300 mg PO DAILY 09/13/16 Balsalazide Disodium 750 mg PO BID 10/27/17 Amiodarone HCl [Cordarone] 400 mg PO BID #60 tab 11/02/17 Furosemide Tab [Lasix Tab] 20 mg PO DAILY #30 tab 11/02/17 Albuterol Inhaler [Ventolin Hfa Inhaler] 2 puff INH PRN 12/15/17 Aspirin [Aspirin Regimen Low Dose/] 81 mg PO DAILY 12/15/17 Carvedilol [Coreg] 12.5 mg PO BID 12/15/17 Ciprofloxacin [Cipro] 250 mg PO Q12H #14 tablet 12/15/17 Diltiazem HCl Coated Beads [Cartia Xt] 120 mg PO DAILY 12/15/17 Dorzolamide HCl [Dorzolamide HCl] 1 drop BOTH_EYES BID 12/15/17 Fluoxetine HCl [PROzac] 20 mg PO DAILY 12/15/17 Fluticasone Propionate (Nasal) [Fluticasone Propionate] 50 mcg NA DAILY Guaifenesin [Mucinex] 600 mg PO PRN 12/15/17 Hydralazine HCl 50 mg PO BID 12/15/17 Latanoprost 0.005% Ophth [Xalatan 0.005% Ophthalmic Drops] 1 drop BOTH_EYES BEDTIME 12/15/17 Metoprolol Tartrate [Lopressor] 50 mg PO BID 12/15/17 Omeprazole [Prilosec Cap] 20 mg PO BID 12/15/17 Additional Instructions: the patient is an 82-year-old female presenting secondary to some abdominal pain and fever primarily worse today. Laboratory work and CT scans are reassuring. It is possible this is a viral gastroenteritis. She was given some IV fluids. It is also possible this may be very early diverticulitis. To that end, the patient will be placed on ciprofloxacin twice daily for 7 days. This will also cover her small urinary tract infection. Tylenol and Motrin can be used to control the fever. She should follow-up with her primary care doctor in 1-2 days. ER warnings were given for any worsening.
--- NOTE | 2017-12-15 19:21 | RAD ---
EXAM DESCRIPTION: Chest,1 View CLINICAL HISTORY: 82 years Female FEVER COMPARISON: 11/04/2017 FINDINGS: Cardiac size is stable. No acute infiltrate or consolidation. Pacemaker in unchanged position. Vascular calcification in aorta. No pleural fluid. IMPRESSION: No acute abnormality is identified. Electronically signed by: Phoebe Mcmanus MD 12/15/2017 7:18 PM CDT
[2017-12-15] MEDS ORDERED: ACETAMINOPHEN 325 MG TAB PO ONE (19:32)
[2017-12-15] MEDS ORDERED: IBUPROFEN 200 MG TAB PO ONE (19:32)
--- NOTE | 2017-12-15 19:51 | CT ---
EXAM DESCRIPTION: Abdomen/Pelvis w/o Contrast CLINICAL HISTORY: 82 years Female LLQ ABDOMINAL PAIN, FEVER COMPARISON: 04/06/2017 TECHNIQUE: Contiguous axial images obtained through the abdomen and pelvis without IV contrast. Reformatted images obtained. This exam was performed according to our department optimization program which includes automated exposure control, adjustment of the mA and/or kv according to patient size and/or use of iterative reconstruction technique. FINDINGS: Small nodular focus in the left lung base on image four measuring 3 mm. This was present on the previous examination and appears stable. The liver appears unremarkable. The spleen and pancreas appear unremarkable. Prominent left adrenal gland. No evidence of hydronephrosis or obstructive uropathy. Small exophytic hyperdense lesion off the inferior pole the left kidney measuring 8 mm likely a hemorrhagic cyst. Additional tiny hemorrhagic cyst in the midpole measures 6 mm and exophytic lesion inferiorly measuring 11 mm. These could be further evaluated with ultrasound. The hemorrhagic cyst appears slightly larger than on the previous exam. The gallbladder is absent. No aneurysmal dilatation of the aorta. No bowel obstruction. Diverticulosis without evidence of diverticulitis. Ventral hernia containing fat. No free pelvic fluid. IMPRESSION: Diverticulosis without evidence of diverticulitis No evidence of acute process Probable hemorrhagic cyst in the left kidney although two of these appear new or more prominent than on the previous study. Recommend ultrasound 3 mm nodule in the left lung base which appears stable as compared to the previous study. If this patient is at high risk for malignancy, recommend additional follow-up imaging in March to document stability over the course of one year Electronically signed by: Phoebe Mcmanus MD 12/15/2017 7:48 PM CDT
[2017-12-15] MEDS ORDERED: cefTRIAXone SODIUM 1 GM in SODIUM CHL 0.9% 50ML MIN-BAG+ 50 ML IVPB ONE (20:55)
[2017-12-15] MEDS ORDERED: SODIUM CHLORIDE 0.9% 1000ML 500 ML IVS ONE (20:55)
[2017-12-15] MEDS ORDERED: cefTRIAXone SODIUM 1 GM VIAL ONE (21:06)
[2017-12-15] MEDS ORDERED: SODIUM CHL 0.9% 50ML MIN-BAG+ 50 ML IVPB ONE (21:06)
[2017-12-15] MEDS ORDERED: CIPROFLOXACIN 500 MG TAB PO ONE (22:26)
[2017-12-15 22:48] VITALS: BP 136/55; TEMP 99; O2SAT 97
== END 2017-12-15 22:48 ==
LOC: ER 17:50
DX: K52.9 Noninfective gastroenteritis and colitis, unspecified (principal); N39.0 Urinary tract infection, site not specified; I11.0 Hypertensive heart disease with heart failure; I50.9 Heart failure, unspecified; Z87.19 Personal history of other diseases of the digestive system; Z79.899 Other long term (current) drug therapy; Z95.0 Presence of cardiac pacemaker
CPT/HCPCS: 36415; 71045; 74176; 80048; 80076; 81001; 85025; 87086; 93005; J0696; J7030; J7050

== ENCOUNTER → 2017-12-28 | Outpatient (CLI) | payer MEDICARE, OTHER | END | disposition home or self-care (01) | LOC: BFHOS 14:35 | PROVIDERS: ATTEND Family Medicine | DX: I13.0 Hypertensive heart and chronic kidney disease with heart failure and stage 1 through stage 4 chronic kidney disease, or unspecified chronic kidney disease (principal); N18.3 Chronic kidney disease, stage 3 (moderate) ==

== ENCOUNTER 2018-01-05 19:11 | Emergency (ER) | payer MEDICARE, OTHER ==
[2018-01-05] MEDS: FLUCONAZOLE 150 MG TAB PO ONE (20:22)
[2018-01-05] MEDS: ACETAMINOPHEN 325 MG TAB PO ONE (20:22)
[2018-01-05] MEDS ORDERED: SODIUM CHLORIDE 0.9% 50ML 50 ML ONE (21:37)
[2018-01-05] MEDS: cefTRIAXone SODIUM 1 GM VIAL IV ONE (21:37)
[2018-01-05] MEDS: AMOXICILLIN & POT CLAVULANATE 875 MG TAB PO ONE (21:37)
--- NOTE | 2018-01-05 21:38 | ED.PDOC ---
History of Present Illness - General Chief Complaint: Fever Stated Complaint: fever, diverticulitis Time Seen by Provider: 01/05/18 19:25 Source: patient Exam Limitations: no limitations - History of Present Illness Initial Comments: the patient is an 82-year-old female presenting to the emergency room secondary to lower abdominal cramping along with some dysuria and frequency primarily today. She has been on several antibiotics over the last 3 weeks for presumed treatment for diverticulitis and colitis. She is followed by gastroenterology and does take immunosuppressants for her chronic inflammatory bowel. She is followed by gastroenterology. She did spike a fever of 100.8 today. She did have a urinary tract infection 3 weeks ago when we checked her here. Timing/Duration: unsure Severity: moderate Improving Factors: nothing Worsening Factors: nothing Associated Symptoms: denies symptoms Allergies/Adverse Reactions: Allergies Codeine Allergy (Verified 01/05/18 19:54) Other "makes her crazy" Home Medications: Ambulatory Orders Gabapentin 300 mg PO DAILY 09/13/16 Balsalazide Disodium 750 mg PO BID 10/27/17 Amiodarone HCl [Cordarone] 400 mg PO BID #60 tab 11/02/17 Furosemide Tab [Lasix Tab] 20 mg PO DAILY #30 tab 11/02/17 Albuterol Inhaler [Ventolin Hfa Inhaler] 2 puff INH PRN 12/15/17 Aspirin [Aspirin Regimen Low Dose/] 81 mg PO DAILY 12/15/17 Carvedilol [Coreg] 12.5 mg PO BID 12/15/17 Ciprofloxacin [Cipro] 250 mg PO Q12H #14 tablet 12/15/17 Diltiazem HCl Coated Beads [Cartia Xt] 120 mg PO DAILY 12/15/17 Dorzolamide HCl [Dorzolamide HCl] 1 drop BOTH_EYES BID 12/15/17 Fluoxetine HCl [PROzac] 20 mg PO DAILY 12/15/17 Fluticasone Propionate (Nasal) [Fluticasone Propionate] 50 mcg NA DAILY Guaifenesin [Mucinex] 600 mg PO PRN 12/15/17 Hydralazine HCl 50 mg PO BID 12/15/17 Latanoprost 0.005% Ophth [Xalatan 0.005% Ophthalmic Drops] 1 drop BOTH_EYES BEDTIME 12/15/17 Metoprolol Tartrate [Lopressor] 50 mg PO BID 12/15/17 Omeprazole [Prilosec Cap] 20 mg PO BID 12/15/17 Amiodarone HCl [Cordarone] 200 mg PO DAILY 01/05/18 Amoxicillin & Pot Clavulanate [Augmentin Tab] 875 mg PO BID #14 tab 01/05/18 Apixaban [Eliquis] 2.5 mg PO DAILY 01/05/18 Balsalazide Disodium [Balsalazide Disodium] 750 mg PO BID 01/05/18 Carvedilol [Coreg] 12.5 mg PO DAILY 01/05/18 Dronedarone HCl [Multaq] 01/05/18 Fluoxetine HCl [Prozac] 20 mg PO DAILY 01/05/18 Latanoprost 0.005% Ophth [Xalatan 0.005% Ophthalmic Drops] 2 drop BOTH_EYES DAILY 01/05/18 Omeprazole [Prilosec Cap] 20 mg PO DAILY 01/05/18 Review of Systems - Review of Systems Constitutional: States: fever, malaise EENTM: States: no symptoms reported Respiratory: States: no symptoms reported Cardiology: States: no symptoms reported Gastrointestinal/Abdominal: States: abdominal pain Genitourinary: States: dysuria, frequency Musculoskeletal: States: no symptoms reported Skin: States: no symptoms reported Neurological: States: no symptoms reported Endocrine: States: no symptoms reported All other Systems: No Change from Baseline Past Medical History (General) - Patient Medical History Hx Seizures: No Hx Stroke: No Hx Dementia: No Hx Asthma: No Hx of COPD: No Hx Cardiac Disorders: - afib Hx Congestive Heart Failure: Yes Hx Pacemaker: Yes Hx Hypertension: Yes Hx Thyroid Disease: No Hx Diabetes: No Hx Gastroesophageal Reflux: Yes - diverticulosis Hx Renal Disease: No Hx Cancer: No Hx MRSA: No - Vaccination History Hx Tetanus, Diphtheria Vaccination: Yes Hx Influenza Vaccination: Yes - 2016 Hx Pneumococcal Vaccination: Yes - 2013 - Social History Hx Tobacco Use: No Hx Chewing Tobacco Use: No Hx Alcohol Use: No Hx Substance Use: No Hx Substance Use Treatment: No Hx Depression: No Hx Physical Abuse: No Hx Emotional Abuse: No Hx Suspected Abuse: No - Female History Patient : No Family Medical History - Family History Mother Family History: Unknown Living Status: Hx Family Asthma: No Hx Family Congestive Heart Failure: No Hx Family Hypertension: No Hx Family Stroke: No Hx Cardiac Disease: Yes Hx Family Diabetes: No Hx Family Cancer: Yes - gastric,colon prostate,lung Physical Exam - Physical Exam General Appearance: Alert, Comfortable, No apparent distress Eye Exam: bilateral normal Ears, Nose, Throat: hearing grossly normal, normal ENT inspection, normal pharynx Neck: full range of motion, supple, normal inspection Respiratory: lungs clear, normal breath sounds, no respiratory distress, no accessory muscle use Cardiovascular/Chest: normal peripheral pulses, no edema Peripheral Pulses: radial,right: 2+, radial,left: 2+, dorsalis pedis,right: 2+, dorsalis pedis,left: 2+ Gastrointestinal/Abdominal: soft, other - mild suprapubic discomfort palpation. No definite rebound or peritoneal signs. Rectal Exam: deferred Back Exam: no CVA tenderness, no vertebral tenderness Extremity: non-tender, normal inspection, no pedal edema, normal capillary refill Neurologic: epidemiology intern II-XII nml as tested, alert, normal mood/affect, oriented x 3 Comments: Vital Signs - 8 hr 01/05/18 01/05/18 19:31 20:29 Temperature 100.8 F H Pulse Rate [ 67 60 left] Respiratory 18 18 Rate Blood Pressure 183/77 186/75 [leftr] O2 Sat by Pulse 94 L 96 Oximetry Progress - Progress Progress: 01/05/18 21:38 the patient is an 82-year-old female presenting to the emergency room secondary to lower abdominal cramping and a low-grade fever today with urinary symptoms. She does appear to have a small urinary tract infection. The patient has recently been on ciprofloxacin and Flagyl so we will change antibiotics over and use Augmentin for a period of 7 days. She was given 1 dose of Diflucan here today. She needs to keep herself well hydrated. She does need follow-up with gastroenterology. She should follow-up with her primary care doctor early next week. ER warnings were given for any significant worsening. - Results/Orders Results/Orders: 01/05/18 20:48 URINE CULTURE W/COLONY COUNT Stat Laboratory Results - last 24 hr 01/05/18 01/05/18 01/05/18 18:45 18:45 20:48 WBC 11.9 H RBC 3.90 L Hgb 10.7 L Hct 32.6 L MCV 83.6 MCH 27.4 MCHC 32.6 L RDW 15.8 H Plt Count 291 MPV 8.8 Absolute Neuts (auto) 8.80 H Absolute Lymphs (auto) 1.60 Absolute Monos (auto) 1.20 H Absolute Eos (auto) 0.10 Absolute Basos (auto) 0.10 Neutrophils % 74.3 Lymphocytes % 13.6 L Monocytes % 10.2 H Eosinophils % 0.8 L Basophils % 1.1 Sodium 133 L Potassium 3.4 L Chloride 98 L Carbon Dioxide 24 Anion Gap 14.4 BUN 18 Creatinine 1.73 H BUN/Creatinine Ratio 10.4 Random Glucose 102 Serum Osmolality 268.5 L Calcium 8.6 Total Bilirubin 0.7 AST 31 ALT 9 L Alkaline Phosphatase 70 Creatine Kinase 40 CK-MB (CK-2) 0.6 CK-MB (CK-2) % Not Reportable Troponin I 0.02 Serum Total Protein 6.5 Albumin 3.5 Globulin 3.0 Albumin/Globulin Ratio 1.2 Amylase 79 Urine Color Yellow Urine Appearance Clear Urine pH 5.5 Ur Specific [place] 1.010 Urine Protein 100 H Urine Glucose (UA) Negative Urine Ketones Negative Urine Blood Negative Urine Nitrite Negative Urine Bilirubin Negative Urine Urobilinogen 0.2 Ur Leukocyte Esterase Small H Urine RBC 0 Urine WBC 5-10 H Ur Epithelial Cells 0 Urine Bacteria 2+ H Departure - Departure Clinical Impression: Cystitis Disposition: Discharge to Home or Self Care Condition: Fair Departure Forms: ED Discharge - Pt. Copy, Patient Portal Self Enrollment Instructions: DI for Fever (Symptom) -- Adult, DI for Urinary Tract Infection ( UTI) Diet: bland diet Activity: increase activity as tolerated Referrals: Aristeo Miller MD [Primary Care Provider] - 1-5 Days Prescriptions: Amoxicillin & Pot Clavulanate [Augmentin Tab] 875 mg PO BID #14 tab Home Medications: Ambulatory Orders Gabapentin 300 mg PO DAILY 09/13/16 Balsalazide Disodium 750 mg PO BID 10/27/17 Amiodarone HCl [Cordarone] 400 mg PO BID #60 tab 11/02/17 Furosemide Tab [Lasix Tab] 20 mg PO DAILY #30 tab 11/02/17 Albuterol Inhaler [Ventolin Hfa Inhaler] 2 puff INH PRN 12/15/17 Aspirin [Aspirin Regimen Low Dose/] 81 mg PO DAILY 12/15/17 Carvedilol [Coreg] 12.5 mg PO BID 12/15/17 Ciprofloxacin [Cipro] 250 mg PO Q12H #14 tablet 12/15/17 Diltiazem HCl Coated Beads [Cartia Xt] 120 mg PO DAILY 12/15/17 Dorzolamide HCl [Dorzolamide HCl] 1 drop BOTH_EYES BID 12/15/17 Fluoxetine HCl [PROzac] 20 mg PO DAILY 12/15/17 Fluticasone Propionate (Nasal) [Fluticasone Propionate] 50 mcg NA DAILY Guaifenesin [Mucinex] 600 mg PO PRN 12/15/17 Hydralazine HCl 50 mg PO BID 12/15/17 Latanoprost 0.005% Ophth [Xalatan 0.005% Ophthalmic Drops] 1 drop BOTH_EYES BEDTIME 12/15/17 Metoprolol Tartrate [Lopressor] 50 mg PO BID 12/15/17 Omeprazole [Prilosec Cap] 20 mg PO BID 12/15/17 Amiodarone HCl [Cordarone] 200 mg PO DAILY 01/05/18 Amoxicillin & Pot Clavulanate [Augmentin Tab] 875 mg PO BID #14 tab 01/05/18 Apixaban [Eliquis] 2.5 mg PO DAILY 01/05/18 Balsalazide Disodium [Balsalazide Disodium] 750 mg PO BID 01/05/18 Carvedilol [Coreg] 12.5 mg PO DAILY 01/05/18 Dronedarone HCl [Multaq] 01/05/18 Fluoxetine HCl [Prozac] 20 mg PO DAILY 01/05/18 Latanoprost 0.005% Ophth [Xalatan 0.005% Ophthalmic Drops] 2 drop BOTH_EYES DAILY 01/05/18 Omeprazole [Prilosec Cap] 20 mg PO DAILY 01/05/18 Additional Instructions: the patient is an 82-year-old female presenting to the emergency room secondary to lower abdominal cramping and a low-grade fever today with urinary symptoms. She does appear to have a small urinary tract infection. The patient has recently been on ciprofloxacin and Flagyl so we will change antibiotics over and use Augmentin for a period of 7 days. She was given 1 dose of Diflucan here today. She needs to keep herself well hydrated. She does need follow-up with gastroenterology. She should follow-up with her primary care doctor early next week. ER warnings were given for any significant worsening.
[2018-01-05 23:00] VITALS: BP 157/74; TEMP 98.4; O2SAT 94
== END 2018-01-05 22:50 | disposition home or self-care (01) ==
LOC: ER 19:11
DX: N30.90 Cystitis, unspecified without hematuria (principal); I48.91 Unspecified atrial fibrillation; I11.0 Hypertensive heart disease with heart failure; I50.9 Heart failure, unspecified; K58.9 Irritable bowel syndrome, unspecified; Z95.0 Presence of cardiac pacemaker; Z79.82 Long term (current) use of aspirin; Z79.01 Long term (current) use of anticoagulants
CPT/HCPCS: 36415; 80053; 81001; 82150; 82550; 82553; 84484; 85025; 87086; A4216; J0696

== ENCOUNTER 2018-01-08 08:27 | Emergency (ER) | payer MEDICARE, OTHER ==
--- NOTE | 2018-01-08 08:50 | ED.PDOC ---
History of Present Illness - General Chief Complaint: GI Problem Stated Complaint: Blood in stool since 0200 Time Seen by Provider: 01/08/18 08:28 Source: patient, EMS notes reviewed Exam Limitations: no limitations - History of Present Illness Initial Comments: Patient comes in with 4 episodes of dark red bloody diarrhea since 2 am. 2 years ago she had the same thing happen but that time the bleeding was much worse and she had to receive 6 units of blood. At that time they were unsure where she was bleeding at and she denies having a colonoscopy or EGD. Patient states it stopped on its own. This episode has no abdominal pain associated with it. However, 3 weeks ago she started having pain LUQ and LLQ with chills and was treated with Cipro for diverticulitis. That seemed to help until several days ago when she started with chills and abdominal discomfort. She was seen here and started on a different antibiotic for a UTI. Patient at this time has no active bleeding and no pain. PMH 1. Hx of Atrial fibrillation after last episode of hemorrhage She takes ASA only and is currently in NSR 2. HTN 3. Hyperlipidemia 4. Umbilical Hernia PSH 1. Tonsillectomy 2. Addie 3. Appy 4. Hysterectomy 5. Umbilical hernia repair 6. Colon resection for diverticular disease Social Patient is a and her son lives close by. Her daughter lives in [place]. She does not smoke, drink, or take illicit drugs Timing/Duration: other - 2 am Improving Factors: nothing Worsening Factors: nothing Associated Symptoms: denies symptoms Allergies/Adverse Reactions: Allergies Codeine Allergy (Verified 01/05/18 19:54) Other "makes her crazy" Home Medications: Ambulatory Orders Gabapentin 300 mg PO DAILY 09/13/16 Balsalazide Disodium 750 mg PO BID 10/27/17 Amiodarone HCl [Cordarone] 400 mg PO BID #60 tab 11/02/17 Furosemide Tab [Lasix Tab] 20 mg PO DAILY #30 tab 11/02/17 Albuterol Inhaler [Ventolin Hfa Inhaler] 2 puff INH PRN 12/15/17 Aspirin [Aspirin Regimen Low Dose/] 81 mg PO DAILY 12/15/17 Carvedilol [Coreg] 12.5 mg PO BID 12/15/17 Ciprofloxacin [Cipro] 250 mg PO Q12H #14 tablet 12/15/17 Diltiazem HCl Coated Beads [Cartia Xt] 120 mg PO DAILY 12/15/17 Dorzolamide HCl [Dorzolamide HCl] 1 drop BOTH_EYES BID 12/15/17 Fluoxetine HCl [PROzac] 20 mg PO DAILY 12/15/17 Fluticasone Propionate (Nasal) [Fluticasone Propionate] 50 mcg NA DAILY Guaifenesin [Mucinex] 600 mg PO PRN 12/15/17 Hydralazine HCl 50 mg PO BID 12/15/17 Latanoprost 0.005% Ophth [Xalatan 0.005% Ophthalmic Drops] 1 drop BOTH_EYES BEDTIME 12/15/17 Metoprolol Tartrate [Lopressor] 50 mg PO BID 12/15/17 Omeprazole [Prilosec Cap] 20 mg PO BID 12/15/17 Amiodarone HCl [Cordarone] 200 mg PO DAILY 01/05/18 Amoxicillin & Pot Clavulanate [Augmentin Tab] 875 mg PO BID #14 tab 01/05/18 Apixaban [Eliquis] 2.5 mg PO DAILY 01/05/18 Balsalazide Disodium [Balsalazide Disodium] 750 mg PO BID 01/05/18 Carvedilol [Coreg] 12.5 mg PO DAILY 01/05/18 Dronedarone HCl [Multaq] 01/05/18 Fluoxetine HCl [Prozac] 20 mg PO DAILY 01/05/18 Latanoprost 0.005% Ophth [Xalatan 0.005% Ophthalmic Drops] 2 drop BOTH_EYES DAILY 01/05/18 Omeprazole [Prilosec Cap] 20 mg PO DAILY 01/05/18 Review of Systems - Review of Systems Constitutional: States: see HPI EENTM: States: no symptoms reported Respiratory: States: no symptoms reported. Denies: cough, short of breath, wheezing Cardiology: States: no symptoms reported. Denies: chest pain, palpitations Gastrointestinal/Abdominal: States: see HPI, diarrhea. Denies: abdominal pain, constipation, nausea, vomiting Genitourinary: States: see HPI Musculoskeletal: States: no symptoms reported Skin: States: no symptoms reported Neurological: States: no symptoms reported Past Medical History (General) - Patient Medical History Hx Seizures: No Hx Stroke: No Hx Dementia: No Hx Asthma: No Hx of COPD: No Hx Cardiac Disorders: Yes - Hx A Fib Hx Congestive Heart Failure: Yes Hx Pacemaker: Yes Hx Hypertension: Yes Hx Thyroid Disease: No Hx Diabetes: No Hx Gastroesophageal Reflux: Yes - Hx diverticulosis Hx Renal Disease: No Hx Cancer: No Hx MRSA: No Surgical History: appendectomy, cholecystectomy, colectomy, tonsillectomy, Hysterectomy - Vaccination History Hx Tetanus, Diphtheria Vaccination: Yes Hx Influenza Vaccination: Yes - 2016 Hx Pneumococcal Vaccination: Yes - 2013 - Social History Hx Tobacco Use: No Hx Chewing Tobacco Use: No Hx Alcohol Use: No Hx Substance Use: No Hx Substance Use Treatment: No Hx Depression: No Hx Physical Abuse: No Hx Emotional Abuse: No Hx Suspected Abuse: No - Activities of Daily Living Senior Care/Assisted Living (if applicable):: [place] - Female History Patient : No Family Medical History - Family History Mother Family History: Unknown Living Status: Hx Family Asthma: No Hx Family Congestive Heart Failure: No Hx Family Hypertension: No Hx Family Stroke: No Hx Cardiac Disease: Yes Hx Family Diabetes: No Hx Family Cancer: Yes - gastric,colon prostate,lung Physical Exam - Physical Exam General Appearance: Alert, Comfortable, No apparent distress Eye Exam: bilateral normal Ears, Nose, Throat: hearing grossly normal, normal ENT inspection, normal pharynx Neck: non-tender, full range of motion, supple Respiratory: chest non-tender, lungs clear, normal breath sounds, no respiratory distress Cardiovascular/Chest: normal peripheral pulses, regular rate, rhythm, no edema, no gallop, no JVD, no murmur Peripheral Pulses: radial,right: 2+ Gastrointestinal/Abdominal: soft, other - tender to palpation diffusely with hyperactive bowel sounds. Umbilical hernia that is reducible. No masses. No rebound no gurading Rectal Exam: normal rectal tone, blood streaked stool, heme positive stool, hemorrhoids, other - Hematochezia noted Back Exam: normal inspection, no CVA tenderness Extremity: normal range of motion Neurologic: alert, oriented x 3 Skin Exam: normal color Progress - Progress Progress: 01/08/18 09:50 01/08/18 09:01 PRBC [PACKED CELLS,LR] Stat TYPE AND SCREEN Stat 01/08/18 09:44 BLOOD CULTURE Stat Laboratory Results WBC 6.5 K/mm3 (4.8-10.8) 01/08/18 09:01 RBC 3.35 M/mm3 (4.20-5.40) L 01/08/18 09: Hgb 9.2 gm/dL (12.0-16.0) L 01/08/18 09: Hct 28.3 % (36.0-47.0) L 01/08/18 09: MCV 84.4 fl (81.0-99.0) 01/08/18 09: MCH 27.4 pg (27.0-31.0) 01/08/18 09: MCHC 32.6 g/dL (33.0-37.0) L 01/08/18 09: RDW 15.6 % (11.5-14.5) H 01/08/18 09: Plt Count 291 K/mm3 (130-400) 01/08/18 09: MPV 8.3 fl (7.40-10.4) 01/08/18 09:01 Absolute Neuts (auto) 3.70 K/uL (1.8-6.8) 01/08/18 09:01 Absolute Lymphs (auto) 1.90 K/uL (1.0-3.4) 01/08/18 09:01 Absolute Monos (auto) 0.60 K/uL (0.2-0.8) 01/08/18 09: Absolute Eos (auto) 0.20 K/uL (0.0-0.4) 01/08/18 09:01 Absolute Basos (auto) 0.10 K/uL (0.0-0.1) 01/08/18 09: Neutrophils % 57.1 % (42.0-78.0) 01/08/18 09: Lymphocytes % 28.9 % (20.0-50.0) 01/08/18 09: Monocytes % 9.0 % (2.0-9.0) 01/08/18 09: Eosinophils % 3.7 % (1.0-5.0) 01/08/18 09: Basophils % 1.3 % (0.0-2.0) 01/08/18 09: PT 12.4 SECONDS (9.4-12.5) 01/08/18 09: INR 1.070 01/08/18 09:01 PTT (SP) 35.7 SECONDS (25.1-36.5) 01/08/18 09:01 Sodium 140 mmol/L (135-145) 01/08/18 09:01 Potassium 3.5 mmol/L (3.6-5.0) L 01/08/18 09:01 Chloride 106 mmol/L (101-111) 01/08/18 09:01 Carbon Dioxide 26 mmol/L (21-31) 01/08/18 09:01 Anion Gap 11.5 (12-18) L 01/08/18 09:01 BUN 17 mg/dL (7-18) 01/08/18 09:01 Creatinine 1.64 mg/dL (0.6-1.3) H 01/08/18 09:01 BUN/Creatinine Ratio 10.4 (10-20) 01/08/18 09:01 Random Glucose 104 mg/dL (70-105) 01/08/18 09:01 Serum Osmolality 281.2 mOsm/L (275-295) 01/08/18 09:01 Calcium 8.7 mg/dL (8.4-10.2) 01/08/18 09:01 Total Bilirubin 0.3 mg/dL (0.2-1.0) 01/08/18 09:01 AST 23 IU/L (10-42) 01/08/18 09:01 ALT 9 IU/L (10-60) L 01/08/18 09:01 Alkaline Phosphatase 61 IU/L (42-121) 01/08/18 09:01 Serum Total Protein 6.5 gm/dL (6.4-8.2) 01/08/18 09:01 Albumin 3.2 g/dl (3.2-5.5) 01/08/18 09:01 Globulin 3.3 gm/dL (2.3-3.5) 01/08/18 09:01 Albumin/Globulin Ratio 1.0 (1.1-1.9) L 01/08/18 09:01 Stool Occult Blood Positive 01/08/18 09:01 Crossmatch See Detail 01/08/18 09:01 - Results/Orders Results/Orders: Patient Name: MAIRS BONNER Gender: Female Date of : 1935 Referring Physician: LEONARD KRAUSE Organization: [facility] Accession Number: [id number] Requested Date: January 08, 2018 08:41 Report Status: Final Requested Procedure: 1 Procedure Description: Abdoment/Pelvis w/o Contrast Modality: CT Findings Reporting MD: Brandy Benítez Fellow MD: Not available Dictation Time: Instructor Dramatic Arts: Not available [employer] Executive Date: Procedure: CT ABDOMEN PELVIS WITHOUT IV CONTRAST Exam Date: 01/08/2018 8:41 AM CDT Ordering Provider: LEONARD KRAUSE Clinical Indication: GI Bleed Comparison: None TECHNIQUE: CT of the abdomen and pelvis WITHOUT intravenous contrast. The abdomen and pelvis were scanned utilizing a multidetector helical scanner from the diaphragm to the lesser trochanter. Coronal and sagittal reformations were obtained. This exam was performed according to our departmental dose-optimization program which includes automated exposure control, adjustment of the mA and/or kV according to patient size and/or use of iterative reconstruction technique. DISCUSSION: ABSENCE OF INTRAVENOUS CONTRAST DECREASES SENSITIVITY FOR DETECTION OF FOCAL LESIONS AND VASCULAR PATHOLOGY. LOWER THORAX: Normal. HEPATOBILIARY: No focal hepatic lesions. No biliary ductal dilatation. SPLEEN: No splenomegaly. PANCREAS: No focal masses or ductal dilatation. ADRENALS: No adrenal nodules. KIDNEYS/URETERS: 1.1 cm hyperdense focus is seen arising from the lower pole of the left kidney and is partially exophytic. It may represent a hemorrhagic or proteinaceous cyst. There is no hydronephrosis. PELVIC ORGANS/BLADDER: Uterus appears to be surgically absent. The bladder is unremarkable. PERITONEUM / RETROPERITONEUM: No free air or fluid. LYMPH NODES: No lymphadenopathy. [facility] [address] [place] [address] T [phone] F [phone] [email or web address] - Report exported on Jan 08, 2018 09:53:52 -0500 - Page 2 of 2 VESSELS: Severe vascular calcifications are seen in the abdominal aorta and iliac vessels. GI TRACT: The stomach and small bowel are unremarkable. There is fluid filled state of the colon. Extensive colonic diverticulosis is present. There is a short segment of the descending colon which demonstrates pericolonic inflammation. No drainable fluid collection/abscess. No free air. BONES AND SOFT TISSUES: Degenerative changes are seen in the spine. A moderate fat-containing umbilical hernia is present. The hernia neck measures 3.3 cm. IMPRESSION: Acute, uncomplicated descending colonic diverticulitis. No free air or fluid collection. Fluid filled state of the colon which is mildly distended. Findings may represent a reactive process. Consider colonoscopy once acute symptoms have resolved. Moderate fat-containing umbilical hernia. Other nonemergent findings, as described. Electronically signed by: Brandy Benítez MD Departure - Departure Clinical Impression: GI bleed Disposition: Admit Patient Condition: Fair Departure Forms: ED Discharge - Pt. Copy, Patient Portal Self Enrollment Diet: other - NPO Referrals: Aristeo Miller MD [Primary Care Provider] - 1-2 Weeks Home Medications: Ambulatory Orders Gabapentin 300 mg PO DAILY 09/13/16 Balsalazide Disodium 750 mg PO BID 10/27/17 Amiodarone HCl [Cordarone] 400 mg PO BID #60 tab 11/02/17 Furosemide Tab [Lasix Tab] 20 mg PO DAILY #30 tab 11/02/17 Albuterol Inhaler [Ventolin Hfa Inhaler] 2 puff INH PRN 12/15/17 Aspirin [Aspirin Regimen Low Dose/] 81 mg PO DAILY 12/15/17 Carvedilol [Coreg] 12.5 mg PO BID 12/15/17 Ciprofloxacin [Cipro] 250 mg PO Q12H #14 tablet 12/15/17 Diltiazem HCl Coated Beads [Cartia Xt] 120 mg PO DAILY 12/15/17 Dorzolamide HCl [Dorzolamide HCl] 1 drop BOTH_EYES BID 12/15/17 Fluoxetine HCl [PROzac] 20 mg PO DAILY 12/15/17 Fluticasone Propionate (Nasal) [Fluticasone Propionate] 50 mcg NA DAILY Guaifenesin [Mucinex] 600 mg PO PRN 12/15/17 Hydralazine HCl 50 mg PO BID 12/15/17 Latanoprost 0.005% Ophth [Xalatan 0.005% Ophthalmic Drops] 1 drop BOTH_EYES BEDTIME 12/15/17 Metoprolol Tartrate [Lopressor] 50 mg PO BID 12/15/17 Omeprazole [Prilosec Cap] 20 mg PO BID 12/15/17 Amiodarone HCl [Cordarone] 200 mg PO DAILY 01/05/18 Amoxicillin & Pot Clavulanate [Augmentin Tab] 875 mg PO BID #14 tab 01/05/18 Apixaban [Eliquis] 2.5 mg PO DAILY 01/05/18 Balsalazide Disodium [Balsalazide Disodium] 750 mg PO BID 01/05/18 Carvedilol [Coreg] 12.5 mg PO DAILY 01/05/18 Dronedarone HCl [Multaq] 01/05/18 Fluoxetine HCl [Prozac] 20 mg PO DAILY 01/05/18 Latanoprost 0.005% Ophth [Xalatan 0.005% Ophthalmic Drops] 2 drop BOTH_EYES DAILY 01/05/18 Omeprazole [Prilosec Cap] 20 mg PO DAILY 01/05/18
--- NOTE | 2018-01-08 09:17 | CT ---
Procedure: CT ABDOMEN PELVIS WITHOUT IV CONTRAST Exam Date: 01/08/2018 8:41 AM CDT Ordering Provider: LEONARD KRAUSE Clinical Indication: GI Bleed Comparison: None TECHNIQUE: CT of the abdomen and pelvis WITHOUT intravenous contrast. The abdomen and pelvis were scanned utilizing a multidetector helical scanner from the diaphragm to the lesser trochanter. Coronal and sagittal reformations were obtained. This exam was performed according to our departmental dose-optimization program which includes automated exposure control, adjustment of the mA and/or kV according to patient size and/or use of iterative reconstruction technique. DISCUSSION: ABSENCE OF INTRAVENOUS CONTRAST DECREASES SENSITIVITY FOR DETECTION OF FOCAL LESIONS AND VASCULAR PATHOLOGY. LOWER THORAX: Normal. HEPATOBILIARY: No focal hepatic lesions. No biliary ductal dilatation. SPLEEN: No splenomegaly. PANCREAS: No focal masses or ductal dilatation. ADRENALS: No adrenal nodules. KIDNEYS/URETERS: 1.1 cm hyperdense focus is seen arising from the lower pole of the left kidney and is partially exophytic. It may represent a hemorrhagic or proteinaceous cyst. There is no hydronephrosis. PELVIC ORGANS/BLADDER: Uterus appears to be surgically absent. The bladder is unremarkable. PERITONEUM / RETROPERITONEUM: No free air or fluid. LYMPH NODES: No lymphadenopathy. VESSELS: Severe vascular calcifications are seen in the abdominal aorta and iliac vessels. GI TRACT: The stomach and small bowel are unremarkable. There is fluid filled state of the colon. Extensive colonic diverticulosis is present. There is a short segment of the descending colon which demonstrates pericolonic inflammation. No drainable fluid collection/abscess. No free air. BONES AND SOFT TISSUES: Degenerative changes are seen in the spine. A moderate fat-containing umbilical hernia is present. The hernia neck measures 3.3 cm. IMPRESSION: Acute, uncomplicated descending colonic diverticulitis. No free air or fluid collection. Fluid filled state of the colon which is mildly distended. Findings may represent a reactive process. Consider colonoscopy once acute symptoms have resolved. Moderate fat-containing umbilical hernia. Other nonemergent findings, as described. Electronically signed by: Brandy Benítez MD 01/08/2018 9:15 AM CDT
[2018-01-08] MEDS ORDERED: levoFLOXacin 500MG IV 500 MG in PREMIX BAG 1 BAG IVPB ONE (09:44)
[2018-01-08] MEDS ORDERED: SODIUM CHLORIDE 0.9% 500ML 500 ML ONE (11:25)
[2018-01-08] MEDS ORDERED: SODIUM CHLORIDE 0.9% 250ML 250 ML ONE (12:17)
[2018-01-08 12:35] VITALS: TEMP 96.9
[2018-01-08] MEDS ORDERED: TETANUS,DIPHTHERIA,PERTUSSIS 1 EA SYG IM ONE (12:50)
[2018-01-10 08:00] VITALS: BP 132/67; O2SAT 97
== END 2018-01-08 12:40 | disposition short-term general hospital (02) ==
LOC: ER 08:27 → MS 10:47 → UNDOADMOB 10:47 → ER 12:40
DX: K92.2 Gastrointestinal hemorrhage, unspecified (principal); I48.91 Unspecified atrial fibrillation; I11.0 Hypertensive heart disease with heart failure; I50.9 Heart failure, unspecified; E78.5 Hyperlipidemia, unspecified; K42.9 Umbilical hernia without obstruction or gangrene; Z95.0 Presence of cardiac pacemaker; Z79.82 Long term (current) use of aspirin; Z79.01 Long term (current) use of anticoagulants; Z79.899 Other long term (current) drug therapy
CPT/HCPCS: 36415; 74176; 80053; 82270; 85014; 85018; 85025; 85610; 85730; 86922; J7040; J7050; P9016

== ENCOUNTER 2018-04-25 18:30 | Emergency (ER) | payer MEDICARE, OTHER ==
[2018-04-25 18:45] VITALS: TEMP 97.6
--- NOTE | 2018-04-25 18:59 | ED.PDOC ---
History of Present Illness - General Chief Complaint: Blood Pressure Problem Stated Complaint: numbness,elevated BP Time Seen by Provider: 04/25/18 18:35 Source: patient Exam Limitations: no limitations - History of Present Illness Initial Comments: Angie Calixto 82 y/o female stated that she took her blood pressure at home and noted was elevated and felt numbness and redness on bothe legs tonight but on her arrival patient no longer felt numbness and redness on her legs.Denies chest pain symptoms,headache,blurry vision.Stated had been having watery diarrhea for the past 4 days and had stool container to get samples but havent been having dirrhea recently and unable to give samples.Had blood test done by her home health [id number] mildly [id number]-60.3 hct-33.6;chemistries- bun-20 cr-1.48 rest of labs unremarkable.She have not taken her evening dose yet of her high blood pressure medications. Timing/Duration: 1-3 hours Severity: moderate Improving Factors: nothing Worsening Factors: nothing Associated Symptoms: other - see hpi Allergies/Adverse Reactions: Allergies Codeine Allergy (Verified 01/05/18 19:54) Other "makes her crazy" Home Medications: Ambulatory Orders Gabapentin 300 mg PO BID 09/13/16 Albuterol Inhaler [Ventolin Hfa Inhaler] 2 puff INH PRN 12/15/17 Hydralazine HCl 50 mg PO BID 12/15/17 Metoprolol Tartrate [Lopressor] 100 mg PO BID 12/15/17 Fluoxetine HCl [Prozac] 20 mg PO DAILY 01/05/18 Omeprazole [Prilosec Cap] 20 mg PO DAILY 01/05/18 Hydralazine HCl 100 mg PO NOON 04/25/18 metroNIDAZOLE [Flagyl] 500 mg PO Q8H 10 Days #30 tab 04/25/18 Review of Systems - Review of Systems Constitutional: States: no symptoms reported EENTM: States: no symptoms reported Respiratory: States: no symptoms reported Cardiology: States: see HPI, other - high blood pressure Gastrointestinal/Abdominal: States: diarrhea - by history Genitourinary: States: no symptoms reported Musculoskeletal: States: no symptoms reported Skin: States: no symptoms reported Neurological: States: no symptoms reported Endocrine: States: no symptoms reported Past Medical History (General) - Patient Medical History Hx Seizures: No Hx Stroke: No Hx Dementia: No Hx Asthma: No Hx of COPD: No Hx Cardiac Disorders: Yes - Hx A Fib Hx Congestive Heart Failure: Yes Hx Pacemaker: Yes Hx Hypertension: Yes Hx Thyroid Disease: No Hx Diabetes: No Hx Gastroesophageal Reflux: Yes - Hx diverticulosis Hx Renal Disease: No Hx Cancer: No Hx MRSA: No Surgical History: appendectomy, cholecystectomy, colectomy, tonsillectomy, other - hysterectomy;colon resection-diverticular disease,hernia repair - Vaccination History Hx Tetanus, Diphtheria Vaccination: Yes Hx Influenza Vaccination: Yes Hx Pneumococcal Vaccination: Yes - Social History Hx Tobacco Use: No Hx Chewing Tobacco Use: No Hx Alcohol Use: No Hx Substance Use: No Hx Substance Use Treatment: No Hx Depression: No Hx Physical Abuse: No Hx Emotional Abuse: No Hx Suspected Abuse: No - Activities of Daily Living Patient Lives Alone: No Grooming Ability: Independent Eating (Feeding) Ability: Independent Toileting Ability: Independent - Female History Patient : No Family Medical History - Family History Mother Family History: Unknown Living Status: Hx Family Asthma: No Hx Family Congestive Heart Failure: No Hx Family Hypertension: No Hx Family Stroke: No Hx Cardiac Disease: Yes Hx Family Diabetes: No Hx Family Cancer: Yes - gastric,colon prostate,lung Physical Exam - Physical Exam General Appearance: Alert, Comfortable, No apparent distress, Other - speech fluent Eye Exam: bilateral normal Ears, Nose, Throat: hearing grossly normal, normal ENT inspection Neck: non-tender, full range of motion, supple, normal inspection Respiratory: chest non-tender, lungs clear, normal breath sounds, no respiratory distress Cardiovascular/Chest: normal peripheral pulses, regular rate, rhythm, no murmur Peripheral Pulses: radial,right: 2+, radial,left: 2+ Gastrointestinal/Abdominal: normal bowel sounds, non tender, soft, no organomegaly Back Exam: normal inspection, no CVA tenderness, no vertebral tenderness Extremity: non-tender, no pedal edema, no calf tenderness Neurologic: no motor/sensory deficits, alert, oriented x 3 Skin Exam: normal color, warm/dry Lymphatic: no adenopathy Progress - Progress Progress: 04/25/18 19:11 Vital Signs - 8 hr 04/25/18 18:39 Temperature 97.6 F Pulse Rate [ 60 Left Brachial] Respiratory 20 Rate Blood Pressure 190/86 [Left Arm] O2 Sat by Pulse 95 Oximetry - Results/Orders Results/Orders: POSTIVE FOR C.Diff stool Departure - Departure Clinical Impression: Clostridium difficile diarrhea High blood pressure Qualifiers: Hypertension type: unspecified Qualified Code(s): I10 - Essential (primary) hypertension Time of Disposition: 20:32 Disposition: Discharge to Asst Living Condition: Fair Departure Forms: ED Discharge - Pt. Copy, Patient Portal Self Enrollment Instructions: DI for High Blood Pressure, Clostridium difficile (DC), Fecal Transplant, Clostridium difficile, Antibiotic-Associated Diarrhea (DC) Referrals: Aristeo Miller MD [Primary Care Provider] - 1-2 Weeks Prescriptions: metroNIDAZOLE [Flagyl] 500 mg PO Q8H 10 Days #30 tab Home Medications: Ambulatory Orders Gabapentin 300 mg PO BID 09/13/16 Albuterol Inhaler [Ventolin Hfa Inhaler] 2 puff INH PRN 12/15/17 Hydralazine HCl 50 mg PO BID 12/15/17 Metoprolol Tartrate [Lopressor] 100 mg PO BID 12/15/17 Fluoxetine HCl [Prozac] 20 mg PO DAILY 01/05/18 Omeprazole [Prilosec Cap] 20 mg PO DAILY 01/05/18 Hydralazine HCl 100 mg PO NOON 04/25/18 metroNIDAZOLE [Flagyl] 500 mg PO Q8H 10 Days #30 tab 04/25/18 Additional Instructions: Need to call up primary 26 April 2018 to inform about recurrence of c.diff diarrhea
[2018-04-25] MEDS ORDERED: METOPROLOL TARTRATE 50 MG TAB PO ONE (19:02)
[2018-04-25] MEDS ORDERED: metroNIDAZOLE 500 MG TAB PO ONE (20:32)
[2018-04-25 21:01] VITALS: BP 168/74; O2SAT 94
== END 2018-04-25 21:01 ==
LOC: ER 18:30
DX: I11.0 Hypertensive heart disease with heart failure (principal); I50.9 Heart failure, unspecified; A04.72 Enterocolitis due to Clostridium difficile, not specified as recurrent; I48.91 Unspecified atrial fibrillation; Z79.899 Other long term (current) drug therapy; Z88.6 Allergy status to analgesic agent

== ENCOUNTER → 2018-04-27 | Outpatient (CLI) | payer MEDICARE, OTHER | LOC: BFHH 10:02 | PROVIDERS: ATTEND Family Medicine | DX: R19.7 Diarrhea, unspecified (principal) ==

== ENCOUNTER → 2018-05-24 | Outpatient (CLI) | payer MEDICARE, OTHER | LOC: GMAM 16:41 | PROVIDERS: ATTEND Family Medicine | DX: I50.22 Chronic systolic (congestive) heart failure (principal); R06.02 Shortness of breath ==

== ENCOUNTER → 2018-06-15 | Outpatient (CLI) | payer MEDICARE, OTHER | LOC: GMAM 16:39 | PROVIDERS: ATTEND Family Medicine | DX: N18.9 Chronic kidney disease, unspecified (principal) ==

== ENCOUNTER → 2018-07-26 | Outpatient (CLI) | payer MEDICARE, OTHER ==
--- NOTE | 2018-07-26 15:11 | CT ---
EXAM DESCRIPTION: Head CLINICAL HISTORY: I48.0 COMPARISON: None available TECHNIQUE: Noncontrast head CT was performed with routine protocol. FINDINGS: Normal prabhakar-white matter differentiation. Ventricles are large with prominent sulci and prominent extra-axial CSF spaces around cerebral hemispheres and cerebellar hemispheres. Large lateral ventricles could be related to normal pressure hydrocephalus or central atrophy. Obstructive hydrocephalus is less likely. Third ventricle is prominent but the fourth ventricle is normal in size. MRI hydrocephalus protocol could be performed at a [facility] with neurosurgical service if indicated. No old studies are available for comparison. No high density hemorrhage, focal edema or shift of the midline. No sulcal effacement. Normal orbital contents. Basilar cisterns appear clear. Intact calvarium with no fracture or lytic lesion. Normal aeration of tympanic cavities and mastoid air cells. No fluid levels in the paranasal sinuses. Skull base appears intact. Symmetrical internal auditory canals. Coronal reformatted images confirm the findings. Mild basal ganglial calcification is incidentally noted. Mamillopontine distance measures 7 mm which is somewhat decreased. Beam hardening artifact obscures maren and medulla. There is calcification of the intracranial internal carotid arteries. IMPRESSION: Prominent lateral and third ventricles. See above. No acute intracranial pathologic process. This exam was performed according to our departmental dose-optimization program, which includes automated exposure control, adjustment of the mA and/or kV according to patient size and/or use of iterative reconstruction technique. Total DLP equals 752.48 mGycm. Electronically signed by: Berry Lenz MD 07/26/2018 3:09 PM CDT
== END ==
LOC: CT 14:06
PROVIDERS: ATTEND Internal Medicine Cardiovascular Disease
DX: I48.0 Paroxysmal atrial fibrillation (principal)

== ENCOUNTER → 2018-08-01 | Outpatient (CLI) | payer MEDICARE, OTHER | LOC: GMAM 11:16 | PROVIDERS: ATTEND Family Medicine | DX: I48.2 Chronic atrial fibrillation (principal); R06.00 Dyspnea, unspecified; I10 Essential (primary) hypertension ==

== ENCOUNTER 2018-10-09 05:05 | Day surgery (SDC) | payer MEDICARE, OTHER ==
[2018-10-09] MEDS ORDERED: PROPARACAINE 0.5% OPHTH SOL 15 ML BTTL ONE (05:58)
[2018-10-09] MEDS ORDERED: TROP 1%/CYCLOPEN 1%/PHENYL 2% DROPS ONE (05:58)
== END 2018-10-09 08:38 | disposition home or self-care (01) ==
LOC: AMB 05:05
PROVIDERS: ATTEND Ophthalmology
DX: H26.492 Other secondary cataract, left eye (principal); I50.9 Heart failure, unspecified

== ENCOUNTER → 2018-11-06 | Outpatient (CLI) | payer MEDICARE, OTHER | LOC: BFHH 09:00 | PROVIDERS: ATTEND Family Medicine | DX: I13.0 Hypertensive heart and chronic kidney disease with heart failure and stage 1 through stage 4 chronic kidney disease, or unspecified chronic kidney disease (principal); I50.30 Unspecified diastolic (congestive) heart failure; N18.3 Chronic kidney disease, stage 3 (moderate) ==

== ENCOUNTER → 2018-12-30 | Outpatient (CLI) | payer MEDICARE, OTHER | LOC: BFHH 11:03 | PROVIDERS: ATTEND Family Medicine | DX: R19.7 Diarrhea, unspecified (principal) ==

== ENCOUNTER → 2019-05-21 | Outpatient (CLI) | payer MEDICARE, OTHER | LOC: GMAJS 18:41 | PROVIDERS: ATTEND Physician Assistant | DX: R53.81 Other malaise (principal); R53.83 Other fatigue ==

== ENCOUNTER → 2019-06-18 | Outpatient (CLI) | payer MEDICARE, OTHER ==
--- NOTE | 2019-06-19 07:26 | CT ---
EXAM: CT Right Lower Extremity Without Intravenous Contrast CLINICAL HISTORY: The patient is 83 years old and is Female; PAIN IN RIGHT HIP TECHNIQUE: Axial computed tomography images of the right hip without intravenous contrast. Sagittal and coronal reformatted images were created and reviewed. This CT exam was performed using one or more of the following dose reduction techniques: automated exposure control, adjustment of the mA and/or kV according to patient size, and/or use of iterative reconstruction technique. COMPARISON: CT abdomen pelvis from 01/08/2018 and 12/15/2017 FINDINGS: BONES/JOINTS: There is mild narrowing of the right hip joint. No dislocation. No acute fracture. No suspicious osseous lesions. No CT evidence of avascular necrosis. Probable bone island within the right iliac bone, just above the acetabulum. This is unchanged. No obvious hip joint effusion. SOFT TISSUES: No significant inflammatory changes visualized. No fluid collection. Focal fat density noted within the proximal aspect of the vastus intermedius muscle (series 2, image 66) may represent focal fatty atrophy of the muscle. The differential includes an intramuscular lipomatous tumor. The proximal aspect is also visualized on the prior CT abdomen from 12/15/2017. This measures 2.3 x 1.2 x 3.6 cm. No soft tissue nodularity visualized. IMPRESSION: 1. No acute findings visualized at the level of the right hip. 2. Focal fat density within the proximal aspect of the right vastus intermedius muscle. This may represent an intramuscular lipomatous tumor or focal fatty atrophy of the muscle. If indicated, MRI without and with contrast could be performed for further evaluation. Electronically signed by: Mitzi Villegas MD 06/19/2019 7:24 AM CDT
== END ==
LOC: MRI 09:58
PROVIDERS: ATTEND Family Medicine
DX: M62.89 Other specified disorders of muscle (principal); M25.551 Pain in right hip

== ENCOUNTER → 2020-07-08 | Outpatient (CLI) | payer MEDICARE, OTHER | LOC: GMAM 11:31 | PROVIDERS: ATTEND Family Medicine | DX: R53.83 Other fatigue (principal); R73.9 Hyperglycemia, unspecified; I10 Essential (primary) hypertension; E78.2 Mixed hyperlipidemia ==

== ENCOUNTER 2020-07-24 11:01 | Inpatient (IN) | payer MEDICARE, OTHER ==
[2020-07-24] MEDS ORDERED: ALBUTEROL INHALER 64 PUFF/8GM INH ONE (11:05)
--- NOTE | 2020-07-24 11:16 | ED.PDOC ---
History of Present Illness - General Time Seen by Provider: 07/24/20 11:03 Source: patient, RN notes reviewed, Vital Signs reviewed, skilled nursing records, old records Exam Limitations: no limitations - History of Present Illness Initial Comments: 84 yo F with hx of CHF and COPD comes in with one day of gradual worsening shortness of breath. Mild cough, no fever. Worse with lying flat. no recent travel or immobilization. Hx of Afib, not on blood thinners. Patient was hypoxic when EMS arrived 84% on RA. Saturating well on 2 L NC. no cp/ Timing/Duration: days, getting worse Allergies/Adverse Reactions: Allergies Amiodarone Allergy (Verified 05/03/18 13:05) Atorvastatin [From Lipitor] Allergy (Verified 05/03/18 13:05) Codeine Allergy (Verified 05/03/18 13:05) Other "makes her crazy" Home Medications: Ambulatory Orders Gabapentin 300 mg PO BID 09/13/16 Albuterol Inhaler [Ventolin Hfa Inhaler] 2 puff INH PRN 12/15/17 Hydralazine HCl [Hydralazine Hydrochloride] 50 mg PO BID 12/15/17 Metoprolol Tartrate [Lopressor] 100 mg PO BID 12/15/17 Fluoxetine HCl [Prozac] 20 mg PO DAILY 01/05/18 Omeprazole [Prilosec Cap] 20 mg PO DAILY 01/05/18 Hydralazine HCl [Hydralazine Hydrochloride] 100 mg PO NOON 04/25/18 Clonazepam 0.5 mg PO BID PRN 05/03/18 Vancomycin HCl [Vancocin HCl] 125 mg PO QID 05/03/18 ALPRAZolam [Xanax] 0.25 mg PO TID PRN #30 tab 05/10/18 Bifidobacterium Infantis [Align] 4 mg PO BID #60 cap 05/10/18 Isosorbide Dinitrate [Isordil Titradose] 10 mg PO BID #60 tab 05/10/18 Review of Systems - Review of Systems Constitutional: Denies: fever, malaise EENTM: Denies: blurred vision, throat pain, mouth pain Respiratory: States: cough, orthopnea, short of breath, wheezing Cardiology: Denies: chest pain, palpitations, syncope Gastrointestinal/Abdominal: Denies: abdominal pain, constipation, diarrhea, nausea, vomiting Genitourinary: Denies: frequency, hematuria Musculoskeletal: Denies: joint swelling, muscle stiffness Neurological: Denies: headache, numbness, paresthesia, tingling, tremors, weakness Endocrine: Denies: increased urine, unexplained weight gain, unexplained weight loss Hematologic/Lymphatic: Denies: blood clots, easy bleeding, easy bruising Past Medical History (General) - Patient Medical History Hx Seizures: No Hx Stroke: No Hx Dementia: No Hx Asthma: No Hx of COPD: No Hx Cardiac Disorders: Yes - Hx A Fib Hx Congestive Heart Failure: No Hx Pacemaker: Yes Hx Hypertension: Yes Hx Thyroid Disease: No Hx Diabetes: No Hx Gastroesophageal Reflux: Yes - Hx diverticulosis Hx Renal Disease: No Hx Cancer: No Hx MRSA: No Hx Other - free text: c. diff - Vaccination History Hx Tetanus, Diphtheria Vaccination: Yes Hx Influenza Vaccination: Yes Hx Pneumococcal Vaccination: Yes - Social History Hx Tobacco Use: No Hx Chewing Tobacco Use: No Hx Alcohol Use: No Hx Substance Use: No Hx Substance Use Treatment: No Hx Depression: No Hx Physical Abuse: No Hx Emotional Abuse: No Hx Suspected Abuse: No - Female History Patient : No Family Medical History - Family History Mother Family History: Unknown Living Status: Hx Family Asthma: No Hx Family Congestive Heart Failure: No Hx Family Hypertension: No Hx Family Stroke: No Hx Cardiac Disease: Yes Hx Family Diabetes: No Hx Family Cancer: Yes - gastric,colon prostate,lung Physical Exam - Physical Exam General Appearance: Alert, Comfortable, No apparent distress, Well Developed, Well Groomed, Well Hydrated, Well Nourished Eyes, Ears, Nose, Throat Exam: PERRL/EOMI, normal ENT inspection Neck: non-tender, full range of motion, supple, normal inspection Respiratory: chest non-tender, no accessory muscle use, wheezing, other - tachypnea Cardiovascular/Chest: normal peripheral pulses, no gallop, no JVD, no murmur, irregularly irregular Peripheral Pulses: radial,right: 2+, radial,left: 2+ Gastrointestinal/Abdominal: normal bowel sounds, non tender, soft, no organomegaly Rectal Exam: deferred Extremity: normal range of motion, non-tender, normal inspection Neurologic: magneto repairer II-XII nml as tested, no motor/sensory deficits, alert, normal mood/affect, oriented x 3 Skin Exam: normal color, warm/dry Progress - Progress Progress: 07/24/20 12:12 partial ddx: COVID, PE, penumonia, CHF exacerbation, COPD. xray shows kerey B lines. Will start on lasix. Ekg shows Afib with rvr, last Ef 60%. Will give Diltiazem 15 mg x1. Hr improved to 98 after diltiazem. Rapid covid negative. CXR: 1. Abnormal right lung and hemithorax with diffusely coarsened and thickened interstitial markings extending peripherally and inhomogeneous fullness in the right hilum and parahilar regions, most consistent with an acute infectious/inflammatory process. This pattern is not typical for viral or Covid pneumonitis. A central obstructing adenopathy or mass with lymphedema in the right hemithorax thought less likely but not entirely excluded. 2. Consider initial follow-up examination with departmental upright PA and lateral chest x- ray for more complete evaluation. If persistent and not responding to treatment, contrast enhanced chest CT with attention to the central right hilar and parahilar region recommended. due to possible pneumonia, will get blood cultures and start on IV Antibiotics (rocephin, azithromycin). hx of c. diff will place on probiotics as well. Discussed with David Duncan. patient normally follows Dr. Soares. Pending resp panel, if negative will admit for CHF exacerbation, Afib rvr, possible pnuemonia. Patient resting comfortably. dyspnea improved. will hold off on nitroglycerin for now as symptoms improved. The data reviewed when caring for this patient included: nurse notes, prior records, etc. The history and assessments from nurses notes were reviewed and considered, and the patient's home medication list was also reviewed and considered. My assessment and the results of testing completed here in the ED were discussed with the patient/family. All questions were answered, and they express understanding of my assessment and the plan. VSS, HR 72. BP 120/82. patient admitted to the floor in stable condition. 07/24/20 13:49 - Results/Orders Results/Orders: 07/24/20 11:04 Isolation:Airborne ONCE Telemetry STAT 07/24/20 11:15 EKG STAT Pulse Ox, Continuous Monitoring STAT 07/24/20 12:58 Azithromycin IV [Zithromax IV] 500 mg Sodium Chloride 0.9% 250Ml [NS 250ml] 250 ml IVPB ONCE 07/24/20 13:10 ED Intent to Admit Routine BLOOD CULTURE Stat 07/25/20 11:15 Pulse Ox, Continuous Monitoring STAT 07/26/20 11:15 Pulse Ox, Continuous Monitoring STAT Laboratory Results WBC 14.2 K/mm3 (4.8-10.8) H 07/24/20 10:48 RBC 4.21 M/mm3 (4.20-5.40) 07/24/20 10:48 Hgb 11.9 gm/dL (12.0-16.0) L 07/24/20 10:48 Hct 36.4 % (36.0-47.0) 07/24/20 10:48 MCV 86.4 fl (81.0-99.0) 07/24/20 10:48 MCH 28.3 pg (27.0-31.0) 07/24/20 10:48 MCHC 32.8 g/dL (33.0-37.0) L 07/24/20 10:48 RDW 16.3 % (11.5-14.5) H 07/24/20 10:48 Plt Count 287 K/mm3 (130-400) 07/24/20 10:48 MPV 9.9 fl (7.40-10.4) 07/24/20 10:48 Absolute Neuts (auto) 11.20 K/uL (1.8-6.8) H 07/24/20 10:48 Absolute Lymphs (auto) 1.90 K/uL (1.0-3.4) 07/24/20 10:48 Absolute Monos (auto) 0.90 K/uL (0.2-0.8) H 07/24/20 10:48 Absolute Eos (auto) 0.00 K/uL (0.0-0.4) 07/24/20 10:48 Absolute Basos (auto) 0.20 K/uL (0.0-0.1) H 07/24/20 10:48 Neutrophils % 78.9 % (42.0-78.0) H 07/24/20 10:48 Lymphocytes % 13.1 % (20.0-50.0) L 07/24/20 10:48 Monocytes % 6.6 % (2.0-9.0) 07/24/20 10:48 Eosinophils % 0.3 % (1.0-5.0) L 07/24/20 10:48 Basophils % 1.1 % (0.0-2.0) 07/24/20 10:48 PT 10.1 SECONDS (9.0-10.9) 07/24/20 10:48 INR 1.02 (0.9-1.15) 07/24/20 10:48 PTT (SP) 26.5 SECONDS (21.8-31.6) 07/24/20 10:48 D-Dimer, Quantitative 2030.0 ng/ml (131-400) H* 07/24/20 10:48 Sodium 141 mmol/L (135-145) 07/24/20 10:48 Potassium 5.0 mmol/L (3.6-5.0) 07/24/20 10:48 Chloride 113 mmol/L (101-111) H 07/24/20 10:48 Carbon Dioxide 18 mmol/L (21-31) L 07/24/20 10:48 Anion Gap 15.0 (12-18) 07/24/20 10:48 BUN 47 mg/dL (7-18) H 07/24/20 10:48 Creatinine 2.58 mg/dL (0.6-1.3) H 07/24/20 10:48 BUN/Creatinine Ratio 18.2 (-20) 07/24/20 10:48 Random Glucose 141 mg/dL (70-105) H 07/24/20 10:48 Serum Osmolality 295.9 mOsm/L (275-295) H 07/24/20 10:48 Calcium 8.9 mg/dL (8.4-10.2) 07/24/20 10:48 Magnesium 1.7 mg/dL (1.8-2.5) L 07/24/20 10:48 Total Bilirubin 1.0 mg/dL (0.2-1.0) 07/24/20 10:48 AST 34 IU/L (10-42) 07/24/20 10:48 ALT 39 IU/L (10-60) 07/24/20 10:48 Alkaline Phosphatase 79 IU/L (42-121) 07/24/20 10:48 LD Total 193 IU/L (91-180) H 07/24/20 10:48 Creatine Kinase 27 IU/L (26-140) 07/24/20 10:48 Troponin I 0.02 ng/mL (0.01-0.05) 07/24/20 10:48 C-Reactive Protein 4.0 mg/dL (0-1.0) H 07/24/20 10:48 B-Natriuretic Peptide 2120.0 pg/ml (0-100) H* 07/24/20 10:48 Serum Total Protein 7.1 gm/dL (6.4-8.2) 07/24/20 10:48 Albumin 3.9 g/dl (3.2-5.5) 07/24/20 10:48 Globulin 3.2 gm/dL (2.3-3.5) 07/24/20 10:48 Albumin/Globulin Ratio 1.2 (1.1-1.9) 07/24/20 10:48 - EKG/XRAY/CT EKG: Atrial, Tachy, Fibrillation Comments: HR 123, nonspecific ST changes. XRAY: chest - see above. Departure - Departure Clinical Impression: Hypoxia, Atrial fibrillation with rapid ventricular response Acute exacerbation of CHF (congestive heart failure) Qualifiers: Heart failure type: systolic Qualified Code(s): I50.23 - Acute on chronic systolic (congestive) heart failure Pneumonia Qualifiers: Pneumonia type: due to unspecified organism Laterality: unspecified laterality Lung location: unspecified part of lung Qualified Code(s): J18.9 - Pneumonia, unspecified organism Disposition: Admit Patient Condition: Fair Home Medications: Ambulatory Orders Gabapentin 300 mg PO BID 09/13/16 Albuterol Inhaler [Ventolin Hfa Inhaler] 2 puff INH PRN 12/15/17 Hydralazine HCl [Hydralazine Hydrochloride] 50 mg PO BID 12/15/17 Metoprolol Tartrate [Lopressor] 100 mg PO BID 12/15/17 Fluoxetine HCl [Prozac] 20 mg PO DAILY 01/05/18 Omeprazole [Prilosec Cap] 20 mg PO DAILY 01/05/18 Hydralazine HCl [Hydralazine Hydrochloride] 100 mg PO NOON 04/25/18 Clonazepam 0.5 mg PO BID PRN 05/03/18 Vancomycin HCl [Vancocin HCl] 125 mg PO QID 05/03/18 ALPRAZolam [Xanax] 0.25 mg PO TID PRN #30 tab 05/10/18 Bifidobacterium Infantis [Align] 4 mg PO BID #60 cap 05/10/18 Isosorbide Dinitrate [Isordil Titradose] 10 mg PO BID #60 tab 05/10/18 Decision To Admit - Decistion To Admit Decision to Admit Reason: Medical Nature Decision to Admit Date: 07/24/20 Decision to Admit Time: 12:00
--- NOTE | 2020-07-24 11:29 | RAD ---
EXAM DESCRIPTION: Chest,1 View CLINICAL HISTORY: 84 years Female, sob COMPARISON: May 05, 2018 TECHNIQUE: AP portable chest. FINDINGS: Single view of the chest shows the left lung remaining clear with tortuous calcified aorta and normal sized heart and normal vascularity evident on the left side. Permanent pacer with atrial and ventricular leads from the right subclavian route is stable in position. The right lung and chest is abnormal with coarse interstitial markings without dense consolidation extending into the peripheral lung and increased density and opacification in the right hilar and parahilar region consistent with an acute inflammatory process. Possibility of hilar enlargement or adenopathy or a central lesion cannot be entirely excluded. No associated pleural effusion. No distinct peripheral masses. The typical patchy peripheral groundglass opacity of viral or Covid pneumonitis is not apparent. I would favor this represents an acute inflammatory/infectious process. A central obstructing neoplasm with an element of lymphatic obstruction and edema is thought less likely but not entirely excluded. Consider follow-up departmental chest x-ray and if these findings do not quickly respond to therapy consider contrast enhanced chest CT with attention to the right hilar region and parahilar lung gates. IMPRESSION: 1. Abnormal right lung and hemithorax with diffusely coarsened and thickened interstitial markings extending peripherally and inhomogeneous fullness in the right hilum and parahilar regions, most consistent with an acute infectious/inflammatory process. This pattern is not typical for viral or Covid pneumonitis. A central obstructing adenopathy or mass with lymphedema in the right hemithorax thought less likely but not entirely excluded. 2. Consider initial follow-up examination with departmental upright PA and lateral chest x-ray for more complete evaluation. If persistent and not responding to treatment, contrast enhanced chest CT with attention to the central right hilar and parahilar region recommended. Electronically signed by: Aristeo Childs MD 07/24/2020 11:27 AM CDT
[2020-07-24] MEDS ORDERED: METOPROLOL TARTRATE INJ 5 MG/5 ML VIAL IV ONE (11:30)
[2020-07-24] MEDS ORDERED: FUROSEMIDE INJ 20 MG/2 ML VIAL IV ONE (11:32)
[2020-07-24] MEDS ORDERED: cefTRIAXone SODIUM 1 GM in SODIUM CHL 0.9% 50ML MIN-BAG+ 50 ML IVPB ONE (12:56)
[2020-07-24] MEDS ORDERED: AZITHROMYCIN IV 500 MG in SODIUM CHLORIDE 0.9% 250ML 250 ML IVPB ONE (12:58)
[2020-07-24] MEDS ORDERED: LACTOBACILLUS 1 TAB PO ONE (13:21)
--- NOTE | 2020-07-24 14:11 | HP ---
SUPERVISING PHYSICIAN: Rolan Becerra MD CHIEF COMPLAINT: General malaise and shortness of breath. HISTORY OF PRESENT ILLNESS: Ms. Calixto is an 84-year-old female patient with a history of congestive heart failure and chronic obstructive pulmonary disease who presents to the Emergency Room with complaints of 1 to 2 days of worsening shortness of breath and general malaise. She denied any actual cough or fevers. She noted her symptoms are worse when she lies flat. She lives at [facility] and has been essentially in lock down since COVID started back in November. She did come in with atrial fibrillation with rapid ventricular response, but she has a history of atrial fibrillation and she has been on blood thinners in the past, but apparently had some kind of hemorrhage in her abdomen and is not on blood thinners currently. She was noted to be hypoxic when she came via EMS at 84% on room air, but improved with 2 liters nasal cannula. She denied any chest pain. Her COVID workup was negative. Initial vital signs in the Emergency Room showed heart rate 132, temperature 98, blood pressure 12/24, oxygen saturation 98% at that time on 3 liters nasal cannula. She was given some Cardizem which did slow her heart rate down into the 80s. After further discussion with the patient, the patient has not taken her medications that she normally takes over the last several days just because she has not felt well. Those medications include beta salbador, lisinopril, amlodipine. Her beta salbador includes Lopressor which is 100 mg b.i.d. Once her blood pressure was stabilized as well as her heart rate and she was clinically stable, Dr. Ervin, the ER physician, requested the patient be admitted for congestive heart failure exacerbation and chronic atrial fibrillation with rapid ventricular response. She was admitted in stable condition. PAST MEDICAL HISTORY: 1. Clostridium difficile infection in 2018. 2. Chronic atrial fibrillation, not on anticoagulation due to hemorrhage, but on Eliquis. 3. Congestive heart failure, diastolic etiology, with no echocardiogram available at time of admission. 4. Hypertension. 5. Peripheral vascular disease. 6. 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 7. Gastroesophageal reflux disease. 8. Chronic polyps. 9. Renal insufficiency. 10. Glaucoma. PAST SURGICAL HISTORY: 1. Appendectomy. 2. Cholecystectomy. 3. Hysterectomy. 4. Right rotator cuff repair. 5. Right shoulder repair with replacement joint. 6. Pacemaker implantation. 7. Hernia repair. HOME MEDICATIONS: We are awaiting updated list of medications in the electronic medical record verified from [facility]. ALLERGIES: PARENTERAL IRON, LIPITOR, AMIODARONE, CODEINE. FAMILY HISTORY: Positive for cancer, diabetes, colon issues and hypertension. SOCIAL HISTORY: The patient is retired and is . She has 2 children. She currently lives at [facility]. She denies any alcohol, tobacco or illicit drug use. REVIEW OF SYSTEMS: CONSTITUTIONAL: Positive for general fatigue and malaise. Negative for any significant weight changes. HEENT: Negative for headaches, sore throats, vision changes. Positive for some nasal congestion. RESPIRATORY: As noted in history of present illness, cough with increasing worsening shortness of breath. CARDIOVASCULAR: Negative for chest pain. Positive for some palpitations with the patient showing atrial fibrillation with rapid ventricular response on admission. No peripheral edema. GASTROINTESTINAL: No reported abdominal pains, nausea, vomiting, diarrhea, constipation. GENITOURINARY: Negative for dysuria, hematuria, polyuria. MUSCULOSKELETAL: Positive for general malaise. No noted arthralgias or joint swelling. SKIN: Negative for lesions, rashes, moles or unexplained changes. NEUROLOGIC: Negative for seizures, ataxia, headaches, dizziness, syncopal episodes. HEMATOLOGIC: Negative for easy bruising, unexplained bleeding other than she did have an associated hemorrhage on Eliquis multiple years previous. PHYSICAL EXAMINATION: VITAL SIGNS: Temperature 97.5, pulse 79, blood pressure 119/88, respirations 22, saturation 99% on 3 liters nasal cannula. GENERAL: The patient looks to be resting comfortably in no acute distress. She is alert. RESPIRATORY: Lung sounds seem to be clear without any obvious rhonchi, wheezes or rales. She is not tachypneic on this exam. Chest nontender on exam. CARDIOVASCULAR: Regular rate and rhythm with atrial fibrillation and rapid ventricular response without any notable murmurs, gallops, or rubs. No jugular venous distention. ABDOMEN: Soft, nontender. Positive bowel sounds. EXTREMITIES: There is no cyanosis, clubbing or edema. NEUROLOGIC: Cranial nerves II-XII are grossly intact. Facial features are symmetrical. Speech was fluent. The patient is alert and oriented times three. SKIN: Warm, pink and dry. LABORATORY: White count on admission 14,200, hemoglobin 11.9, hematocrit 36.4, platelet count 287,000. Differential does show a left shift. Coagulation studies studies showed normal PT, PTT. D-dimer elevated at 2030. Chemistries show sodium 141, potassium 5, chloride a little elevated. Anion gap 15, creatinine 2.58, magnesium 1.7. Liver functions were within normal limits. Troponin 0.02. BNP 2120. MICROBIOLOGY: Blood cultures pending. She had a rapid nasal swab for COVID which was negative as well as the extended panel which was negative for all bacterial and viral antigens as tested. RADIOLOGY: Chest x-ray, single-view, in the Emergency Room per radiologic interpretation showed abnormal right lung or hemithorax with diffusely coarsened and thickened interstitial markings extending peripherally and homogenous fullness of the right hilum and perihilar region most consistent with acute infectious/inflammatory process. Please see that report for details. ASSESSMENT: 1. Community acquired pneumonia with associated hypoxia on room air with the patient not being oxygen dependent. 2. Chronic congestive heart failure, likely diastolic, but echocardiogram pending. 3. Chronic atrial fibrillation with a rapid ventricular response, probably due to poor medication compliance over the last 48 hours with her not taking her beta salbador. 4. Hypertension. 5. Severe peripheral vascular disease. 6. History of pulmonary nodules that are followed by Dr. Power, elevator mechanic apprentice in [place]. 7. Gastroesophageal reflux disease. 8. Chronic renal insufficiency with some probable prerenal azotemia due to underlying illness and poor oral intake. PLAN: Ms. Calixto is going to be admitted for treatment of the underlying pneumonia as well as congestive heart failure exacerbation. I have started her on antibiotics with Rocephin and azithromycin. I have restarted her medications and have not had to give her any additional beta blockers to keep her rate controlled. I replaced some of her magnesium with IV replacement. Given her history and D-dimer elevated, I did talk to Dr. Miller and at this point even though she is negative for COVID, there is concern she may not have been taking her medicine, she was at one point supposed to be on Eliquis and quit taking it. Therefore, although I cannot rule out that she had a pulmonary embolus, I will go ahead and start her on 1 mg per kg dosed as per her renal function. I also ordered echocardiogram and will await those reports. Until the patient can transition to outpatient management, we will continue to monitor and treat as needed. Again, she is covered with antibiotics as well as aggressive pulmonary hygiene. #[id number] [facility] MEM[facility]IAL HOSPITALPrasanna
[2020-07-24] MEDS ORDERED: LACTOBACILLUS 1 TAB ONE (16:28)
[2020-07-24] MEDS ORDERED: ACETAMINOPHEN 325 MG TAB PO PRN (18:43)
[2020-07-24] MEDS ORDERED: ONDANSETRON INJ 4 MG/2 ML VIAL IV PRN (18:43)
[2020-07-24] MEDS ORDERED: SODIUM CHLORIDE 0.9% (FLUSH) 10 ML SYG IV PRN (18:43)
[2020-07-24] MEDS ORDERED: MAGNESIUM SULFATE PREMIX 2GM 2 GM in PREMIX BAG 1 BAG IVPB ONE (18:49)
[2020-07-24] MEDS ORDERED: MAGNESIUM SULFATE PREMIX 2GM 50 ML IVPB ONE (18:59)
[2020-07-24] MEDS ORDERED: ENOXAPARIN SODIUM 60 MG/0.6 ML SYG SUBCU ONE (19:02)
[2020-07-24] MEDS: IV SET AND CAP CHANGE INJ INJ SCH (19:11)
[2020-07-24] MEDS: BIFIDOBACTERIUM INFANTIS 4 MG CAP PO SCH (20:39)
[2020-07-24] MEDS: GABAPENTIN 300 MG CAP PO SCH (20:39)
[2020-07-24] MEDS: METOPROLOL TARTRATE 50 MG TAB PO SCH (20:39)
[2020-07-24] MEDS: [UNRECOGNIZED DRUG - OTHER] OP SCH (20:41)
[2020-07-25] MEDS: LEVALBUTEROL NEBS 1.25 MG/3 ML VIAL INH SCH ×3 (00:30→16:40)
[2020-07-25] MEDS ORDERED: METOPROLOL TARTRATE INJ 5 MG/5 ML VIAL IV ONE (03:56)
--- NOTE | 2020-07-25 06:44 | RAD ---
CHEST, ONE VIEW XR CLINICAL HISTORY: Pneumonia COMPARISON: 07/24/2020 TECHNIQUE: AP Chest. FINDINGS: Heart is normal in size. Mild aortic atherosclerosis. There are persistent but improving right perihilar infiltrates. No edema or pneumothorax. No pleural fluid. Right subclavian dual lead pacemaker is intact. There is an old right rib fracture. Unremarkable soft tissues. IMPRESSION: 1. Persistent but improving right perihilar infiltrates. Electronically signed by: Tahmina Deal DO 07/25/2020 6:43 AM CDT
[2020-07-25] MEDS: BIFIDOBACTERIUM INFANTIS 4 MG CAP PO SCH ×2 (09:15→20:17)
[2020-07-25] MEDS: FLUoxetine HCL 20 MG CAP PO SCH (09:15)
[2020-07-25] MEDS: AZITHROMYCIN IV 500 MG in SODIUM CHLORIDE 0.9% 250ML 250 ML IVPB SCH (09:15)
[2020-07-25] MEDS: amLODIPine BESYLATE 5 MG TAB PO SCH (09:15)
[2020-07-25] MEDS: OMEPRAZOLE CAP 20 MG CAP PO SCH (09:15)
[2020-07-25] MEDS: METOPROLOL TARTRATE 50 MG TAB PO SCH ×2 (09:15→20:17)
[2020-07-25] MEDS: LISINOPRIL 10 MG TAB PO SCH (09:15)
[2020-07-25] MEDS: GABAPENTIN 300 MG CAP PO SCH ×2 (09:15→20:17)
[2020-07-25] MEDS: IBUPROFEN 200 MG TAB PO SCH (09:15)
[2020-07-25] MEDS: [UNRECOGNIZED DRUG - OTHER] OP SCH ×2 (09:16→20:18)
[2020-07-25] MEDS: cefTRIAXone SODIUM 1 GM in SODIUM CHL 0.9% 50ML MIN-BAG+ 50 ML IVPB SCH (12:33)
--- NOTE | 2020-07-25 15:29 | PN ---
SUPERVISING PHYSICIAN: Rolan Becerra MD DATE: 07/25/20 SUBJECTIVE: The patient is lying in bed asleep. She awakens easily. She does feel much better and does not feel any palpitations in her chest. She has no chest pain, nausea or vomiting. OBJECTIVE: VITAL SIGNS: Temperature 98.5, heart rate about 98, blood pressure 126/72, respiratory rate 18, O2 saturation 92% on 3 liters nasal cannula. RESPIRATORY: Essentially clear to auscultation bilaterally although she is somewhat diminished at the bases. CARDIAC: Regular to tachycardic rate and irregular rhythm. Atrial fibrillation on the media monitor. NEUROLOGIC: Awake, alert and oriented times three. LABORATORY: WBCs 10.2, hemoglobin 10.8, hematocrit 32.6. She has a left shift on differential. Sodium 139, potassium 4.6, chloride 110, carbon dioxide 17, BUN 45, creatinine 2.56, glucose 114, magnesium 2.3. MICROBIOLOGY: Preliminary blood cultures show no growth after 24 hours. RADIOLOGY: Chest x-ray shows persistent but improving right perihilar infiltrates. All other labs and films have been reviewed via the EMR. ASSESSMENT: 1. Community acquired pneumonia with associated hypoxia on room air with the patient being oxygen dependent at home. 2. Chronic congestive heart failure, likely diastolic, but echocardiogram is pending. 3. Chronic atrial fibrillation with rapid ventricular response, most likely secondary to not taking her beta salbador 48 hours previous to admission. 4. Hypertension. 5. Peripheral vascular disease. 6. History of pulmonary nodules, followed by Dr. Power in [place]. 7. Gastroesophageal reflux disease. 8. Chronic renal insufficiency. PLAN: We will continue present supportive care. The patient has said she will not take any anticoagulants at this time, but she would be open to taking an aspirin. I will discontinue her Lovenox at discharge and she will go home on an aspirin. Her heart rate has come down to the upper 90s and low 100s. She still in atrial fibrillation, but right now I will not add any medications. We will continue to monitor closely. I will hold on any lab as those are mostly normalized. We will monitor the patient closely and follow as needed. #[id number] [facility]
[2020-07-25] MEDS: ENOXAPARIN SODIUM 60 MG/0.6 ML SYG SUBCU SCH (18:20)
[2020-07-25] MEDS ORDERED: guaiFENesin ER TAB 600 MG TAB ONE (19:45)
[2020-07-25] MEDS: guaiFENesin ER TAB 600 MG TAB PO SCH (20:17)
[2020-07-26] MEDS: LEVALBUTEROL NEBS 1.25 MG/3 ML VIAL INH SCH ×3 (00:30→16:48)
[2020-07-26] MEDS ORDERED: METOPROLOL TARTRATE INJ 5 MG/5 ML VIAL IV ONE (06:27)
[2020-07-26] MEDS: OMEPRAZOLE CAP 20 MG CAP PO SCH (06:35)
[2020-07-26] MEDS: GABAPENTIN 300 MG CAP PO SCH ×2 (08:34→20:07)
[2020-07-26] MEDS: METOPROLOL TARTRATE 50 MG TAB PO SCH ×2 (08:35→20:07)
[2020-07-26] MEDS: amLODIPine BESYLATE 5 MG TAB PO SCH (08:35)
[2020-07-26] MEDS: [UNRECOGNIZED DRUG - OTHER] OP SCH ×2 (08:35→20:08)
[2020-07-26] MEDS: BIFIDOBACTERIUM INFANTIS 4 MG CAP PO SCH ×2 (08:35→20:07)
[2020-07-26] MEDS: LISINOPRIL 10 MG TAB PO SCH (08:35)
[2020-07-26] MEDS: IBUPROFEN 200 MG TAB PO SCH (08:35)
[2020-07-26] MEDS: AZITHROMYCIN IV 500 MG in SODIUM CHLORIDE 0.9% 250ML 250 ML IVPB SCH (08:35)
[2020-07-26] MEDS: FLUoxetine HCL 20 MG CAP PO SCH (08:35)
[2020-07-26] MEDS: guaiFENesin ER TAB 600 MG TAB PO SCH ×2 (08:35→20:07)
[2020-07-26] MEDS ORDERED: CALCIUM CARBONATE (ANTACID) 500 MG CHEWABLE TAB PO PRN (10:54)
[2020-07-26] MEDS: cefTRIAXone SODIUM 1 GM in SODIUM CHL 0.9% 50ML MIN-BAG+ 50 ML IVPB SCH (11:26)
[2020-07-26] MEDS ORDERED: diltiaZEM HCL TAB 30 MG TAB PO ONE (13:07)
[2020-07-26] MEDS ORDERED: CITALOPRAM HBR 20 MG TAB ONE (13:29)
[2020-07-26] MEDS ORDERED: diltiaZEM HCL TAB 30 MG TAB ONE ×3 (13:29→23:33)
[2020-07-26] MEDS: CITALOPRAM HBR 20 MG TAB PO SCH (13:29)
--- NOTE | 2020-07-26 15:54 | PN ---
SUPERVISING PHYSICIAN: Rolan Becerra MD DATE: 07/26/20 SUBJECTIVE: The patient is lying in bed. She awakens easily. She is very depressed. She says she cannot sleep. It was also reported from physical therapy that she just did not want to do anything. We discussed at length that she needed to get up and move around to prevent the pneumonia from getting worse. We also discussed adding some antidepressant and she asked for something for sleep. Other than that, she denies nausea, vomiting, chest pain or shortness of breath. OBJECTIVE: VITAL SIGNS: Temperature 98.8, heart rate about 109, blood pressure 109/77, respiratory rate 18, O2 saturation 92% on 3 liters nasal cannula. RESPIRATORY: Diminished at the bases. CARDIAC: Tachycardic rate, irregular rhythm. Atrial fibrillation on the equipment monitor phototypesetting. NEUROLOGIC: She is depressed, but she is awake and alert. She answers simple questions appropriately. MICROBIOLOGY: Preliminary blood cultures show no growth after 48 hours. All other labs and films have been reviewed via the EMR. ASSESSMENT: 1. Community acquired pneumonia with associated hypoxia on room air with the patient being oxygen dependent at home. 2. Chronic congestive heart failure, likely diastolic, but echocardiogram is pending. 3. Chronic atrial fibrillation with rapid ventricular response, most likely secondary to not taking her beta salbador 48 hours previous to admission. 4. Hypertension. 5. Peripheral vascular disease. 6. History of pulmonary nodules, followed by Dr. Power in [place]. 7. Gastroesophageal reflux disease. 8. Chronic renal insufficiency. 9. Depression with insomnia. PLAN: We will continue present supportive care. Her heart rate did go up this morning to the 130s and 140s. She was given an additional dose of metoprolol IV. Her heart rate is down to the 100s to 120s now. She is still in atrial fibrillation. I have added some p.o. Cardizem to her regimen. We will monitor her heart rate closely as well as her blood pressure. I have also started her on some Celexa as well as some Xanax. Physical therapy says they would work with her while she is in inpatient. I have ordered labs for in the morning. We will continue to monitor the patient closely and follow as needed. [facility][id number] [facility]
[2020-07-26] MEDS: ENOXAPARIN SODIUM 60 MG/0.6 ML SYG SUBCU SCH (18:16)
[2020-07-26] MEDS: diltiaZEM HCL TAB 30 MG TAB PO SCH ×2 (18:16→23:34)
[2020-07-27] MEDS: LEVALBUTEROL NEBS 1.25 MG/3 ML VIAL INH SCH ×3 (00:15→16:32)
[2020-07-27] MEDS: ALPRAZolam 0.25 MG TAB PO PRN ×2 (02:12→20:57)
[2020-07-27] MEDS ORDERED: diltiaZEM HCL TAB 30 MG TAB ONE ×2 (05:00→11:12)
[2020-07-27] MEDS: diltiaZEM HCL TAB 30 MG TAB PO SCH ×2 (05:57→11:39)
[2020-07-27] MEDS: OMEPRAZOLE CAP 20 MG CAP PO SCH (06:24)
[2020-07-27] MEDS ORDERED: CARVEDILOL 12.5 MG TAB ONE (08:34)
[2020-07-27] MEDS: IBUPROFEN 200 MG TAB PO SCH (09:14)
[2020-07-27] MEDS: LISINOPRIL 10 MG TAB PO SCH (09:15)
[2020-07-27] MEDS: GABAPENTIN 300 MG CAP PO SCH ×2 (09:15→20:57)
[2020-07-27] MEDS: FLUoxetine HCL 20 MG CAP PO SCH (09:15)
[2020-07-27] MEDS: guaiFENesin ER TAB 600 MG TAB PO SCH ×2 (09:15→20:57)
[2020-07-27] MEDS: AZITHROMYCIN IV 500 MG in SODIUM CHLORIDE 0.9% 250ML 250 ML IVPB SCH (09:15)
[2020-07-27] MEDS: METOPROLOL TARTRATE 50 MG TAB PO SCH ×2 (09:15→20:57)
[2020-07-27] MEDS: amLODIPine BESYLATE 5 MG TAB PO SCH (09:15)
[2020-07-27] MEDS: BIFIDOBACTERIUM INFANTIS 4 MG CAP PO SCH ×2 (09:15→20:57)
--- NOTE | 2020-07-27 09:15 | RAD ---
EXAM: XR Chest, 2 Views CLINICAL HISTORY: chf TECHNIQUE: Frontal and lateral views of the chest. COMPARISON: 07/25/2020 FINDINGS: Lungs: Stable central interstitial thickening in the right lung. Pleural space: New small right pleural effusion. No pneumothorax. Heart: Stable cardiac enlargement. Mediastinum: No abnormality noted. Bones/joints: No abnormality noted. Tubes, lines and devices: Stable cardiac pacing device. IMPRESSION: 1. New small right pleural effusion. 2. Otherwise, no change. Electronically signed by: Patricia Coppola MD 07/27/2020 9:13 AM [facility]
[2020-07-27] MEDS: [UNRECOGNIZED DRUG - OTHER] OP SCH ×2 (09:17→21:00)
[2020-07-27] MEDS: CITALOPRAM HBR 20 MG TAB PO SCH (09:17)
[2020-07-27] MEDS ORDERED: CITALOPRAM HBR 20 MG TAB ONE (09:17)
[2020-07-27] MEDS: cefTRIAXone SODIUM 1 GM in SODIUM CHL 0.9% 50ML MIN-BAG+ 50 ML IVPB SCH (11:38)
[2020-07-27] MEDS: ENOXAPARIN SODIUM 60 MG/0.6 ML SYG SUBCU SCH (17:23)
[2020-07-27] MEDS: IV SET AND CAP CHANGE INJ INJ SCH (18:59)
--- NOTE | 2020-07-27 19:01 | PN ---
SUPERVISING PHYSICIAN: Rolan Becerra MD DATE: 07/27/20 SUBJECTIVE: The patient is lying in bed. She is asleep, awakens easily. She said she feels awful and doesn't want to get up out of bed and she just wants to . She said, I do not want to get up out of bed and I don't want to take my medicines, Otherwise, she had very little response to questioning today. She does seem quite depressed but she denied that she would hurt herself. She said she was just tired. OBJECTIVE: VITAL SIGNS: Temperature 97.5, heart rate 97, blood pressure 110/75, respiratory rate 20, O2 saturation 95% on 3 liters nasal cannula. RESPIRATORY: Essentially clear to auscultation bilaterally. CARDIAC: Regular rate and rhythm. NEUROLOGIC: She is awake, alert, and oriented x3 but very depressed with a somewhat flat affect. LABORATORY: WBC 7.8, hemoglobin 10, hematocrit 31.4, sodium 123, potassium 4.1, chloride 113, BUN 45, creatinine 1.13. BNP is 781. Preliminary blood cultures show no growth after 3 days. Chest x-ray shows: 1. New small right pleural effusion. 2. Otherwise, unchanged. All other labs and films have been reviewed via the EMR. ASSESSMENT: 1. Community acquired pneumonia with associated hypoxia on room air with the patient being oxygen dependent at home. 2. Chronic congestive heart failure, likely diastolic, but echocardiogram is pending. 3. Chronic atrial fibrillation with rapid ventricular response, most likely secondary to not taking her beta salbador 48 hours previous to admission. 4. Hypertension. 5. Peripheral vascular disease. 6. History of pulmonary nodules, followed by Dr. Power in [place]. 7. Gastroesophageal reflux disease. 8. Chronic renal insufficiency. 9. Depression with insomnia. PLAN: We will continue present supportive care. I did start her on some oral Cardizem and I have changed that to the long acting. Her heart rate is stable at 100 since we initiated the oral Cardizem. She had been on Prozac as a home medication and I have discontinued the Celexa and increased her Prozac to 40 mg daily. I am not sure that she is safe to back to [facility] as she did say she would not take her medications and she did not take her medications prior to coming to the Emergency Room. She also said she would not take any anticoagulants but did agree to take an aspirin. She is allowing her Lovenox to be given but she will need to go home on regular strength aspirin. I have consulted [employer] Director as she most likely will need placement at a different facility such as a long-term care. I have ordered lab including a CRP tomorrow. She does continue to have quite a few PVCs but I think that is mostly her baseline and her blood pressures have been stable. She will need to be discharged on that Cardize CD as well as the aspirin. #[id number] [facility]
[2020-07-27] MEDS ORDERED: ALPRAZolam 0.25 MG TAB ONE (19:14)
[2020-07-28] MEDS: LEVALBUTEROL NEBS 1.25 MG/3 ML VIAL INH PRN ×2 (04:05→21:55)
[2020-07-28] MEDS: LEVALBUTEROL NEBS 1.25 MG/3 ML VIAL INH SCH ×3 (05:16→16:13)
[2020-07-28] MEDS: OMEPRAZOLE CAP 20 MG CAP PO SCH (06:08)
[2020-07-28] MEDS: AZITHROMYCIN IV 500 MG in SODIUM CHLORIDE 0.9% 250ML 250 ML IVPB SCH (09:58)
[2020-07-28] MEDS: BIFIDOBACTERIUM INFANTIS 4 MG CAP PO SCH ×2 (10:02→20:36)
[2020-07-28] MEDS: GABAPENTIN 300 MG CAP PO SCH ×2 (10:02→20:36)
[2020-07-28] MEDS: amLODIPine BESYLATE 5 MG TAB PO SCH (10:03)
[2020-07-28] MEDS: LISINOPRIL 10 MG TAB PO SCH (10:03)
[2020-07-28] MEDS: METOPROLOL TARTRATE 50 MG TAB PO SCH ×2 (10:03→20:36)
[2020-07-28] MEDS: guaiFENesin ER TAB 600 MG TAB PO SCH ×2 (10:04→20:36)
[2020-07-28] MEDS: IBUPROFEN 200 MG TAB PO SCH (10:05)
[2020-07-28] MEDS: FLUoxetine HCL 20 MG CAP PO SCH (10:05)
[2020-07-28] MEDS: [UNRECOGNIZED DRUG - OTHER] OP SCH ×2 (10:37→20:36)
[2020-07-28] MEDS ORDERED: cefTRIAXone SODIUM 1 GM VIAL ONE (12:18)
[2020-07-28] MEDS ORDERED: SODIUM CHL 0.9% 50ML MIN-BAG+ 50 ML IVPB ONE (12:18)
[2020-07-28] MEDS: cefTRIAXone SODIUM 1 GM in SODIUM CHL 0.9% 50ML MIN-BAG+ 50 ML IVPB SCH (12:21)
[2020-07-28] MEDS: ENOXAPARIN SODIUM 60 MG/0.6 ML SYG SUBCU SCH (17:58)
[2020-07-29] MEDS: LEVALBUTEROL NEBS 1.25 MG/3 ML VIAL INH SCH ×2 (00:08→09:00)
[2020-07-29] MEDS: LEVALBUTEROL NEBS 1.25 MG/3 ML VIAL INH PRN (05:57)
[2020-07-29] MEDS: OMEPRAZOLE CAP 20 MG CAP PO SCH (06:09)
--- NOTE | 2020-07-29 06:56 | RAD ---
EXAM: XR Chest, 1 View CLINICAL HISTORY: The patient is 84 years old and is Female; pneumonia TECHNIQUE: Single upright portable view of the chest. COMPARISON: July 27, 2020 8:30 AM. FINDINGS: Lungs: Unremarkable. No consolidation. Pleural space: Right pleural effusion is mildly increased. Hazy opacities in the right lung may be secondary to infection, slightly increased in conspicuity. No pneumothorax. Heart: Cardiomediastinal silhouette is not significantly changed given the differences in technique. Mediastinum: See above. Bones/joints: The bones and joints are unchanged as visualized. Tubes, lines and devices: Right-sided cardiac pacer. Upper abdomen: No free air in the visualized upper abdomen. IMPRESSION: Right pleural effusion is mildly increased. Hazy opacities in the right lung may be secondary to infection, slightly increased in conspicuity. Electronically signed by: Carina Smallwood MD 07/29/2020 6:55 AM [facility]
[2020-07-29] MEDS: BIFIDOBACTERIUM INFANTIS 4 MG CAP PO SCH (07:59)
[2020-07-29] MEDS: GABAPENTIN 300 MG CAP PO SCH (07:59)
[2020-07-29] MEDS: FLUoxetine HCL 20 MG CAP PO SCH (08:00)
[2020-07-29] MEDS: IBUPROFEN 200 MG TAB PO SCH (08:00)
[2020-07-29] MEDS: guaiFENesin ER TAB 600 MG TAB PO SCH (08:00)
[2020-07-29] MEDS: amLODIPine BESYLATE 5 MG TAB PO SCH (08:01)
[2020-07-29] MEDS: LISINOPRIL 10 MG TAB PO SCH (08:01)
[2020-07-29] MEDS: METOPROLOL TARTRATE 50 MG TAB PO SCH (08:01)
[2020-07-29] MEDS: AZITHROMYCIN IV 500 MG in SODIUM CHLORIDE 0.9% 250ML 250 ML IVPB SCH (08:02)
--- NOTE | 2020-07-29 08:16 | PN ---
SUPERVISING PHYSICIAN: Micheal Santo MD DATE: 07/28/20 SUBJECTIVE: The patient is doing okay. She is still a little weak. I did discuss with her that I think she would benefit from some rehab and she has agreed to go to [facility], so they are going to look at doing that today. She has not had any complaints other than she says she is still a little bit short of breath when she exerts herself. OBJECTIVE: VITAL SIGNS: Temperature 98, pulse 95, blood pressure 118/65, respirations 18, saturation 94% on 3 liters nasal cannula. GENERAL: The patient is resting comfortably. She is alert. CHEST: Lungs are clear bilaterally. HEART: Slightly irregular rate and rhythm. ABDOMEN: Soft, nontender. Positive bowel sounds. NEUROLOGIC: Alert and oriented times three. She seems to be in a little bit better spirits today. LABORATORY: White count 7,800, hemoglobin 9.3, hematocrit 28.9, platelet count 205,000. Differential is without a left shift. Coagulation studies show normal PT, PTT today. Electrolytes show a normal potassium and sodium with creatinine 2.01. Liver functions all within normal limits. Magnesium normal at 1.8. MICROBIOLOGY: Blood cultures remain negative after 4 days. RADIOLOGY: No additional radiographic studies today. ASSESSMENT: 1. Community acquired pneumonia with associated hypoxia on room air with the patient being oxygen dependent at home. 2. Chronic congestive heart failure, likely diastolic, but echocardiogram is pending. 3. Chronic atrial fibrillation with rapid ventricular response, most likely secondary to not taking her beta salbador 48 hours previous to admission. 4. Hypertension. 5. Peripheral vascular disease. 6. History of pulmonary nodules, followed by Dr. Power in [place]. 7. Gastroesophageal reflux disease. 8. Chronic renal insufficiency. 9. Depression with insomnia. PLAN: We will continue current plan of care at this point. We will continue antibiotics with Rocephin and azithromycin. She is on Lovenox which is dosed 1 mg per kg q.24h. as we certainly could not rule out a possible pulmonary embolism given her symptomatology and the fact that was COVID negative. She is doing well on Cardizem and we will continue that. She still does have some PVCs. I did discuss with her that I think she would benefit both with her depression issues as well as her physical rehabilitation from going to [facility]. We will wait on that referral and once we hear from that, we will be able to decide on ultimate discharge either to [facility] or look for a longterm unit. Until then, we will continue to monitor and treat as needed. #[id number] [facility]
[2020-07-29] MEDS: [UNRECOGNIZED DRUG - OTHER] OP SCH (09:57)
[2020-07-29] MEDS: cefTRIAXone SODIUM 1 GM in SODIUM CHL 0.9% 50ML MIN-BAG+ 50 ML IVPB SCH (11:24)
[2020-07-29 13:54] VITALS: BP 107/69; TEMP 97.8; O2SAT 96
--- NOTE | 2020-08-01 08:37 | DS ---
SUPERVISING PHYSICIAN: Micheal Santo MD ADMISSION DIAGNOSIS: 1. Community acquired pneumonia with associated hypoxia on room air with the patient not being oxygen dependent. 2. Chronic congestive heart failure, likely diastolic, but echocardiogram pending. 3. Chronic atrial fibrillation with a rapid ventricular response, probably due to poor medication compliance over the last 48 hours with her not taking her beta salbador. 4. Hypertension. 5. Severe peripheral vascular disease. 6. 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 7. Gastroesophageal reflux disease. 8. Chronic renal insufficiency with some probable prerenal azotemia due to underlying illness and poor oral intake. DISCHARGE DIAGNOSIS: 1. Community acquired pneumonia with associated hypoxia on room air with the patient being oxygen dependent at home. 2. Chronic congestive heart failure, likely diastolic, but echocardiogram is pending. 3. Chronic atrial fibrillation with rapid ventricular response, most likely secondary to not taking her beta salbador 48 hours previous to admission. 4. Hypertension. 5. Peripheral vascular disease. 6. History of pulmonary nodules, followed by Dr. Power in [place]. 7. Gastroesophageal reflux disease. 8. Chronic renal insufficiency. 9. Depression with insomnia. HISTORY OF PRESENT ILLNESS: Ms. Calixto is an 84-year-old female patient with a history of congestive heart failure and chronic obstructive pulmonary disease who presents to the Emergency Room with complaints of 1 to 2 days of worsening shortness of breath and general malaise. She denied any actual cough or fevers. She noted her symptoms are worse when she lies flat. She lives at [facility] and has been essentially in lock down since COVID started back in November. She did come in with atrial fibrillation with rapid ventricular response, but she has a history of atrial fibrillation and she has been on blood thinners in the past, but apparently had some kind of hemorrhage in her abdomen and is not on blood thinners currently. She was noted to be hypoxic when she came via EMS at 84% on room air, but improved with 2 liters nasal cannula. She denied any chest pain. Her COVID workup was negative. Initial vital signs in the Emergency Room showed heart rate 132, temperature 98, blood pressure 12/24, oxygen saturation 98% at that time on 3 liters nasal cannula. She was given some Cardizem which did slow her heart rate down into the 80s. After further discussion with the patient, the patient has not taken her medications that she normally takes over the last several days just because she has not felt well. Those medications include beta salbador, lisinopril, amlodipine. Her beta salbador includes Lopressor which is 100 mg b.i.d. Once her blood pressure was stabilized as well as her heart rate and she was clinically stable, Dr. Ervin, the ER physician, requested the patient be admitted for congestive heart failure exacerbation and chronic atrial fibrillation with rapid ventricular response. She was admitted in stable condition. LABORATORY: White count on discharge was 7,800, hemoglobin 9.3, hematocrit 29, platelet count 205,000. Differential was without a left shift. Coagulation studies showed initial D-dimer 2,030. At discharge, it was 864. PT was normal at 10.1. Chemistries on discharge showed creatinine 1.95 compared to admission of 2.58. Potassium and sodium were both normal. BNP was initially 2120, prior to discharge was 781. Urinalysis showed just a moderate amount of blood, RBCs 5 to 10, otherwise within normal limits. MICROBIOLOGY: Nasal swab for COVID was negative. Respiratory panel was also negative for all viral and bacterial targets including COVID and influenza. Blood cultures remained negative after 5 days. RADIOLOGY: Final chest x-ray on discharge showed right pleural effusion mildly increased with some hazy opacities in the right lower lung, likely secondary to infection, increased slightly and conspicuity. Please see that report for details. EKG showed atrial fibrillation with rapid ventricular response initially at 123. HOSPITAL COURSE: Ms. Calixto was admitted for treatment of pneumonia with atrial fibrillation with rapid ventricular response and congestive heart failure exacerbation. She was started on antibiotics and treated for the pneumonia with azithromycin and Rocephin. She was started on Lovenox 1 mg per kg in view of elevated D-dimer and atrial fibrillation. She did have a history of previously being on Eliquis, but had a hemorrhage from that and refused to be on any anticoagulants prior to hospitalization, but agreed to be on Lovenox while in the hospital and will need to be discharged on an aspirin if necessary. She did require some addition to her medication regimen in the form of Cardizem to get better control of her heart rate. She was still having a few PVCs, but her heart rate is controlled. She was clinically improving. On date of discharge, heart rate was 90, blood pressure 107/69, O2 saturations 99% on 3 liters nasal cannula, and she was afebrile at 97.8. PLAN: Ms. Calixto was discharged and transferred to [facility] facility for continued rehabilitation due to her weakness and lengthy hospitalization. On discharge from [facility], she will need to followup with Dr. Miller. She is to resume her usual diet as tolerated and increase activity as tolerated per physical therapy. MEDICATIONS PRESCRIBED ON DISCHARGE: 1. Aspirin 325 mg daily, #30. 2. Cardizem CD 120 mg daily, #30, no refills. 3. Cefdinir 300 mg daily for 4 days. All other medications were continued as prior to hospitalization including beta salbador, Lopressor 100 mg b.i.d. She was also on lisinopril 20 mg daily and amlodipine 10 mg daily. She was prescribed aspirin as she refused to be on any other anticoagulation due to complications in the past. Her echocardiogram was pending at discharge and will need to followup. DISPOSITION: Admit to [facility] for physical therapy. CONDITION ON DISCHARGE: Stable and improved. [facility][id number] [facility]
== END 2020-07-29 15:23 | DRG 291 ==
LOC: ER 11:01 → MS 14:07 → OBSVTOIN 14:07
PROVIDERS: ADMIT Nurse Practitioner Family; ATTEND Nurse Practitioner Family
DX: I13.0 Hypertensive heart and chronic kidney disease with heart failure and stage 1 through stage 4 chronic kidney disease, or unspecified chronic kidney disease (principal); J18.9 Pneumonia, unspecified organism; I50.32 Chronic diastolic (congestive) heart failure; I48.20 Chronic atrial fibrillation, unspecified; J44.0 Chronic obstructive pulmonary disease with (acute) lower respiratory infection; R09.02 Hypoxemia; I73.9 Peripheral vascular disease, unspecified; K21.9 Gastro-esophageal reflux disease without esophagitis; N18.9 Chronic kidney disease, unspecified; F32.9 Major depressive disorder, single episode, unspecified; G47.00 Insomnia, unspecified; H40.9 Unspecified glaucoma; Z88.5 Allergy status to narcotic agent; Z88.8 Allergy status to other drugs, medicaments and biological substances; Z66 Do not resuscitate; Z95.0 Presence of cardiac pacemaker; Z96.611 Presence of right artificial shoulder joint; Z79.899 Other long term (current) drug therapy

== ENCOUNTER 2020-09-03 20:00 | Inpatient (IN) | payer MEDICARE, OTHER ==
--- NOTE | 2020-09-03 21:05 | RAD ---
EXAM: XR Chest, 1 View CLINICAL HISTORY: SOB TECHNIQUE: Frontal view of the chest. COMPARISON: 07/29/2020 FINDINGS: Lungs: There is increased groundglass opacity in the right lung most notable in the upper lobe. Minimal interstitial thickening in the left lung noted. Pleural space: No pneumothorax or pleural effusion. Heart: Stable mild cardiac enlargement. Mediastinum: No abnormality noted. Bones/joints: No osseous destruction or sclerosis noted. Tubes, lines and devices: Right atrial and ventricular cardiac pacing wires unchanged. IMPRESSION: Increased asymmetric right greater than left interstitial lung disease. Consider asymmetric pulmonary edema and aspiration as well as pneumonia including viral etiology. Electronically signed by: Patricia Coppola MD 09/03/2020 9:03 PM [facility]
[2020-09-03] MEDS ORDERED: AZITHROMYCIN IV 500 MG in SODIUM CHLORIDE 0.9% 250ML 250 ML IVPB ONE (21:15)
[2020-09-03] MEDS ORDERED: cefTRIAXone SODIUM 2 GM in SODIUM CHL 0.9% 100ML MINI-BAG 100 ML IVPB ONE (21:15)
[2020-09-03] MEDS ORDERED: REMDESIVIR 200 MG in SODIUM CHLORIDE 0.9% 250ML 250 ML IVPB ONE (21:40)
[2020-09-03] MEDS ORDERED: DEXAMETHASONE INJ 10 MG/ML VIAL IV ONE (21:41)
--- NOTE | 2020-09-03 21:53 | ED.PDOC ---
History of Present Illness - General Chief Complaint: Respiratory Problem Stated Complaint: SOB and nausea since this morning Time Seen by Provider: 09/03/20 20:14 Source: patient Exam Limitations: no limitations - History of Present Illness Initial Comments: PATIENT BEING SENT FROM [facility] FOR RAPIDLY PROGRESSIVE SOB OVER THE LAST 24 HOURS ALONG WITH COUGH. NO KNOWN FEVER PER [facility]. Severity: severe Activities at Onset: none Possible Cause: no prior episodes Improving Factors: nothing Worsening Factors: nothing Associated Symptoms: denies symptoms Respiratory Risk Factors: no cause identified Allergies/Adverse Reactions: Allergies Amiodarone Allergy (Verified 09/03/20 21:12) Atorvastatin [From Lipitor] Allergy (Verified 09/03/20 21:12) Codeine Allergy (Verified 09/03/20 21:12) Other "makes her crazy" Ferric Gluconate Allergy (Uncoded 09/03/20 21:12) Home Medications: Ambulatory Orders Gabapentin 300 mg PO BID 09/13/16 Albuterol Inhaler [Ventolin Hfa Inhaler] 2 puff INH PRN 12/15/17 Metoprolol Tartrate [Lopressor] 100 mg PO BID 12/15/17 Fluoxetine HCl [Prozac] 20 mg PO DAILY 01/05/18 Omeprazole [Prilosec Cap] 20 mg PO DAILY 01/05/18 Hydralazine HCl [Hydralazine Hydrochloride] 100 mg PO NOON 04/25/18 Bifidobacterium Infantis [Align] 4 mg PO BID #60 cap 05/10/18 Amlodipine Besylate 10 mg PO DAILY 07/24/20 Cetirizine HCl [Zyrtec] 10 mg PO Q6HRS PRN 07/24/20 Cyanocobalamin [B12] 1,000 mcg PO DAILY 07/24/20 Ibuprofen [Motrin] 200 mg PO DAILY 07/24/20 Lisinopril 20 mg PO DAILY 07/24/20 Timolol Maleate-Dorzolamide Hc [Timolol/Dorzolamide/Latan 0.5-0.15-0.005 %] 1 rodolfo OP BID 07/24/20 Vitamin C-Vitamin D-Zinc [D3/Vitamin C/Zinc] 1 tab PO DAILY 07/24/20 Aspirin [Aspirin Adult] 325 mg PO DAILY #30 tab 07/29/20 Cefdinir [Omnicef] 300 mg PO DAILY 4 Days #4 cap 07/29/20 diltiaZEM HCL CD [Cardizem Cd] 120 mg PO DAILY #30 cap 07/29/20 Review of Systems - Review of Systems Constitutional: States: no symptoms reported EENTM: States: no symptoms reported Respiratory: States: see HPI, cough, short of breath, wheezing Cardiology: States: no symptoms reported Gastrointestinal/Abdominal: States: no symptoms reported Genitourinary: States: no symptoms reported Musculoskeletal: States: no symptoms reported Skin: States: no symptoms reported Neurological: States: no symptoms reported Unable to Obtain Due To: dementia Past Medical History (General) - Patient Medical History Hx Seizures: No Hx Stroke: No Hx Dementia: No Hx Asthma: No Hx of COPD: Yes Hx Cardiac Disorders: Yes - Hx A Fib Hx Congestive Heart Failure: Yes Hx Pacemaker: No Hx Hypertension: Yes Hx Thyroid Disease: No Hx Diabetes: No Hx Gastroesophageal Reflux: Yes - Hx diverticulosis Hx Renal Disease: No Hx Cancer: No Hx MRSA: No - Vaccination History Hx Tetanus, Diphtheria Vaccination: Yes Hx Influenza Vaccination: Yes Hx Pneumococcal Vaccination: Yes - Social History Hx Tobacco Use: No Hx Chewing Tobacco Use: No Hx Alcohol Use: No Hx Substance Use: No Hx Substance Use Treatment: No Hx Depression: No Hx Physical Abuse: No Hx Emotional Abuse: No Hx Suspected Abuse: No - Female History Patient : No Family Medical History - Family History Mother Family History: Unknown Living Status: Hx Family Asthma: No Hx Family Congestive Heart Failure: No Hx Family Hypertension: No Hx Family Stroke: No Hx Cardiac Disease: Yes Hx Family Diabetes: No Hx Family Cancer: Yes - gastric,colon prostate,lung Physical Exam - Physical Exam General Appearance: Lethargic, Ill Appearing, Well Nourished Eyes, Ears, Nose, Throat Exam: PERRL/EOMI, normal ENT inspection Neck: non-tender, full range of motion, supple Respiratory: lungs clear, normal breath sounds, no respiratory distress Cardiovascular/Chest: normal peripheral pulses, regular rate, rhythm, no edema Gastrointestinal/Abdominal: normal bowel sounds, non tender, soft, no organomegaly Extremity: normal range of motion, non-tender, normal inspection Neurologic: survey rodman II-XII nml as tested, no motor/sensory deficits, depressed affect Skin Exam: normal color, warm/dry Lymphatic: no adenopathy Departure - Departure Clinical Impression: Pneumonia Qualifiers: Pneumonia type: due to unspecified organism Laterality: right Lung location: unspecified part of lung Qualified Code(s): J18.9 - Pneumonia, unspecified organism Time of Disposition: 22:22 Disposition: Discharge to Home or Self Care Condition: Good Departure Forms: ED Discharge - Pt. Copy, Patient Portal Self Enrollment Referrals: Aristeo Miller MD [Primary Care Provider] - 1-2 Weeks Home Medications: Ambulatory Orders Gabapentin 300 mg PO BID 09/13/16 Albuterol Inhaler [Ventolin Hfa Inhaler] 2 puff INH PRN 12/15/17 Metoprolol Tartrate [Lopressor] 100 mg PO BID 12/15/17 Fluoxetine HCl [Prozac] 20 mg PO DAILY 01/05/18 Omeprazole [Prilosec Cap] 20 mg PO DAILY 01/05/18 Hydralazine HCl [Hydralazine Hydrochloride] 100 mg PO NOON 04/25/18 Bifidobacterium Infantis [Align] 4 mg PO BID #60 cap 05/10/18 Amlodipine Besylate 10 mg PO DAILY 07/24/20 Cetirizine HCl [Zyrtec] 10 mg PO Q6HRS PRN 07/24/20 Cyanocobalamin [B12] 1,000 mcg PO DAILY 07/24/20 Ibuprofen [Motrin] 200 mg PO DAILY 07/24/20 Lisinopril 20 mg PO DAILY 07/24/20 Timolol Maleate-Dorzolamide Hc [Timolol/Dorzolamide/Latan 0.5-0.15-0.005 %] 1 rodolfo OP BID 07/24/20 Vitamin C-Vitamin D-Zinc [D3/Vitamin C/Zinc] 1 tab PO DAILY 07/24/20 Aspirin [Aspirin Adult] 325 mg PO DAILY #30 tab 07/29/20 Cefdinir [Omnicef] 300 mg PO DAILY 4 Days #4 cap 07/29/20 diltiaZEM HCL CD [Cardizem Cd] 120 mg PO DAILY #30 cap 07/29/20
[2020-09-04] MEDS ORDERED: ALPRAZolam 0.25 MG TAB PO PRN (00:56)
[2020-09-04] MEDS ORDERED: ALBUTEROL INHALER 64 PUFF/8GM INH PRN (01:00)
[2020-09-04] MEDS ORDERED: ACETAMINOPHEN 325 MG TAB PO PRN (01:04)
[2020-09-04] MEDS ORDERED: SODIUM CHLORIDE 0.9% (FLUSH) 10 ML SYG IV PRN (01:04)
[2020-09-04] MEDS ORDERED: ONDANSETRON INJ 4 MG/2 ML VIAL IV PRN (01:04)
[2020-09-04] MEDS: IV SET AND CAP CHANGE INJ INJ SCH (01:22)
[2020-09-04] MEDS ORDERED: PANTOPRAZOLE SODIUM IV 40 MG VIAL ONE (02:04)
[2020-09-04] MEDS: PANTOPRAZOLE SODIUM IV 40 MG VIAL IV SCH (05:59)
[2020-09-04] MEDS ORDERED: DEXAMETHASONE INJ 10 MG/ML VIAL ONE (07:06)
[2020-09-04] MEDS ORDERED: APIXABAN 5 MG TAB PO ONE (07:07)
[2020-09-04] MEDS ORDERED: FLUoxetine HCL 20 MG CAP ONE (07:07)
[2020-09-04] MEDS ORDERED: guaiFENesin ER TAB 600 MG TAB ONE (07:07)
[2020-09-04] MEDS ORDERED: GABAPENTIN 100 MG CAP ONE (07:07)
[2020-09-04] MEDS ORDERED: ASPIRIN TABLET 325 MG TAB ONE (07:07)
[2020-09-04] MEDS ORDERED: BIFIDOBACTERIUM INFANTIS 4 MG CAP ONE (07:07)
[2020-09-04] MEDS ORDERED: SODIUM CHL 0.9% 50ML MIN-BAG+ 50 ML IVPB ONE (07:08)
[2020-09-04] MEDS ORDERED: cefTRIAXone SODIUM 1 GM VIAL ONE (07:08)
--- NOTE | 2020-09-04 08:02 | CT ---
EXAM DESCRIPTION: Chest w/o Contrast CLINICAL HISTORY: covid COMPARISON: October 25, 2016 TECHNIQUE: Noncontrast transaxial CT images of the chest are obtained. Images are degraded by patient breathing motion artifact. This exam was performed according to our departmental dose-optimization program, which includes automated exposure control, adjustment of the mA and/or kV according to patient size and/or use of iterative reconstruction technique . FINDINGS: The heart is enlarged. Right subclavian dual-lead transvenous cardiac pacemaker. Mild mediastinal and hilar lymphadenopathy increased from previous. Largest right paratracheal lymph node measures 8 mm short axis. Trace right greater than left pleural effusions. Visualized portion of the upper abdomen shows no acute findings. Lungs are normally aerated. Interval development of groundglass attenuation and interstitial/alveolar densities in the right upper lobe and right middle lobe. Mild peripheral interstitial thickening in the right lower lobe. Mild infiltrates in the left upper lobe are also seen. Osseous structures are diffusely osteopenic. No aggressive bony lesions. Spondylitic changes of the thoracic spine are seen. IMPRESSION: Mild bilateral pulmonary infiltrates more prominent in the right lung suggests bilateral pneumonia. Commonly reported imaging features of COVID-19 pneumonia are present. Other processes such as influenza pneumonia and organizing pneumonia, as can be seen with drug toxicity and connective tissue disease, can cause similar imaging pattern Trace right greater than left pleural effusions are seen. Electronically signed by: Daron Melgar MD 09/04/2020 8:00 AM ENVIRONMENTAL HEALTH MANAGER
[2020-09-04] MEDS ORDERED: MAGNESIUM SULFATE PREMIX 2GM 2 GM in PREMIX BAG 1 BAG IVPB ONE (08:25)
[2020-09-04] MEDS: FLUoxetine HCL 20 MG CAP PO SCH (08:39)
[2020-09-04] MEDS: GABAPENTIN 100 MG CAP PO SCH ×2 (08:39→20:29)
[2020-09-04] MEDS: ASPIRIN TABLET 325 MG TAB PO SCH (08:39)
[2020-09-04] MEDS: APIXABAN 5 MG TAB PO SCH ×2 (08:39→20:30)
[2020-09-04] MEDS: BIFIDOBACTERIUM INFANTIS 4 MG CAP PO SCH ×2 (08:40→20:29)
[2020-09-04] MEDS: DEXAMETHASONE INJ 10 MG/ML VIAL IV SCH (08:40)
[2020-09-04] MEDS: guaiFENesin ER TAB 600 MG TAB PO SCH ×2 (08:40→20:29)
[2020-09-04] MEDS: cefTRIAXone SODIUM 1 GM in SODIUM CHL 0.9% 50ML MIN-BAG+ 50 ML IVPB SCH (08:41)
[2020-09-04] MEDS: ALBUTEROL INHALER 64 PUFF/8GM INH SCH ×4 (09:10→20:51)
[2020-09-04] MEDS: NYSTATIN POWDER 15GM BTTL TOP SCH ×2 (09:28→20:45)
[2020-09-04] MEDS: BISOPROLOL FUMARATE 10 MG PO SCH (09:28)
[2020-09-04] MEDS: SODIUM CHLORIDE 0.9% (FLUSH) 10 ML SYG IV SCH ×2 (09:28→20:31)
[2020-09-04] MEDS: BUMETANIDE TAB 2 MG TAB PO SCH (09:36)
[2020-09-04] MEDS: AZITHROMYCIN IV 500 MG in SODIUM CHLORIDE 0.9% 250ML 250 ML IVPB SCH (10:56)
[2020-09-04] MEDS: DIGOXIN 0.125 MG TAB PO SCH (11:40)
--- NOTE | 2020-09-04 11:45 | HP ---
SUPERVISING PHYSICIAN: Aristeo Miller MD CHIEF COMPLAINT: Shortness of breath and nausea. HISTORY OF PRESENT ILLNESS: This is an 84-year-old female patient from the group home. She has been diagnosed with Covid-19 pneumonia. She has had progressively worsening of shortness of breath as well as some nausea and came to the Emergency Room. Initial vital signs were temperature 97.6, heart rate of 73, blood pressure 175/94, respiratory rate 27, oxygen saturation 78% on room air, after applying oxygen it came up to 93% on 5 liters nasal cannula. Lab was [place] [address]186, hemoglobin 10.1, hematocrit 30.9. She had a left shift on her differential. D-dimer was 1400. BUN 33, creatinine 2.13. Baseline creatinine is about 1.92. BNP 1,330. Troponin 0.03. Urinalysis showed moderate urine blood with 3 to 5 urine RBCs. Blood cultures were drawn. She was positive for Covid-19. Chest x-ray shows increased asymmetric right greater than left interstitial lung disease, consider asymmetrical pulmonary edema and aspiration as well as pneumonia including viral etiology. She was given azithromycin and Rocephin in the Emergency Room as well as breathing treatments. Remdesivir was started and she was given some Decadron. She was admitted to the hospital in stable condition. It should be noted that she was in hospital in June 2020 for bilateral pneumonia. She did not have Covid-19. After treatment in the hospital, she was sent to [facility] for rehabilitation. PAST MEDICAL HISTORY: 1. Clostridium difficile infection in 2018. 2. Chronic atrial fibrillation on anticoagulation. 3. Congestive heart failure, diastolic etiology. 4. Hypertension. 5. Peripheral vascular disease. 6. History of pulmonary nodules, she has seen Dr. Power, mutual fund sales agent in the past. 7. Gastroesophageal reflux disease. 8. Chronic colonic polyps. 9. Renal insufficiency. 10. Glaucoma. PAST SURGICAL HISTORY: 1. Appendectomy. 2. Cholecystectomy. 3. Hysterectomy. 4. Right rotator cuff repair. 5. Right shoulder repair. 6. Pacemaker implantation. 7. Hernia repair. HOME MEDICATIONS: Per the EMR and awaiting verification. ALLERGIES: PARENTERAL IRON, LIPITOR, AMIODARONE, CODEINE. FAMILY HISTORY: Positive for cancer, diabetes, colon problems and hypertension. SOCIAL HISTORY: She lives at [facility]. She is , she has three children. There is no history of ETOH, tobacco or illicit drug use. REVIEW OF SYSTEMS: CONSTITUTIONAL: Positive for fatigue and malaise. Negative for weight changes. HEENT: Negative for sinus symptoms, ear pain, sore throats, vision changes. RESPIRATORY: Positive for coughing and shortness of breath, negative for wheezing. CARDIOVASCULAR: Negative for chest pain, palpitations, tachycardia. GASTROINTESTINAL: Negative for nausea, vomiting, diarrhea, constipation. GENITOURINARY: Negative for dysuria, hematuria, polyuria. MUSCULOSKELETAL: Negative for arthralgias or myalgias SKIN: Negative for lesions, rashes. NEUROLOGIC: Negative for seizures, headaches, dizziness. PHYSICAL EXAMINATION: VITAL SIGNS: Temperature 93.7, heart rate 65, blood pressure 145/64, respirations 18, saturation 90% on 2 liters nasal cannula. GENERAL: This is an 84 year-old female patient lying in her hospital bed. She is in no acute distress. HEENT: Normocephalic and atraumatic. Pupils are equal and reactive. Oropharynx is clear. CHEST: Supple with full range of motion. RESPIRATORY: Essentially clear to auscultation bilaterally, just somewhat diminished. She can get tachypneic with speech and can only speak in 3-word phrases. CARDIOVASCULAR: Regular rate and rhythm. ABDOMEN: Soft, nondistended, non-tender. Bowel sounds are positive. EXTREMITIES: No cyanosis, clubbing, or edema. NEUROLOGIC: She is awake, alert, and oriented x3. Cranial nerves II through XII are grossly intact as tested. LABORATORY: Followup lab shows WBC 7, hemoglobin 9.7, hematocrit 29.6. She has a left shift on her differential. PTT 35.5, fibrinogen 498, D-dimer 1,030. Electrolytes are basically within normal limits except her calcium is slightly low at 8.2, magnesium slightly low at 1.6. BUN 33, creatinine 2.1. C-reactive protein 7.8. Urinalysis is unremarkable. She was positive for Covid-19 on her respiratory panel. Preliminary blood cultures show no growth. RADIOLOGY: Chest CT shows minimal bilateral pulmonary infiltrates more prominent in the right lung suggests bilateral pneumonia. Commonly reported images features Covid-19 pneumonia and are present. Other processes such as an influenza pneumonia and organizing pneumonia can be seen with drug toxicity and connective tissue disease. All other labs and films have been reviewed via the EMR. ASSESSMENT: 1. Covid-19 pneumonitis. 2. Chronic renal failure with creatinines close to baseline. 3. Congestive heart failure with diastolic etiology and ejection fraction of about 60%, echo in 2016. She did have an echocardiogram under her last hospitalization approximately a month ago. There is no echo to review. 4. Chronic atrial fibrillation on Eliquis. 5. Previous history of C. difficile. 6. Hypertension. 7. Peripheral vascular disease. 8. History of pulmonary nodules that are being seen by Dr. Martinez. 9. Gastroesophageal reflux disease. PLAN: The patient has bee4n admitted to the hospital. We will initiate the Covid guidelines including medications and labs as well as films. He will have aggressive pulmonary hygiene and scheduled and p.r.n. albuterol. He will start on Remdesivir, azithromycin, ceftriaxone, Decadron and continue on her Lovenox. She will have Protonix for ulcer prophylaxis. I have also initiated from the CHF guidelines in that he may need to be on some IV Lasix and then we can titrate her back to her normal dose. Will restart her home medications as indicated once they are approved. It may be helpful to have that echocardiogram from a month or so ago. It is not available on the chart. She will have labs and films in the morning and will monitor closely and follow as needed. #[id number] SHANON
[2020-09-04] MEDS: REMDESIVIR 100 MG in SODIUM CHLORIDE 0.9% 250ML 250 ML IVPB SCH (12:44)
[2020-09-04] MEDS ORDERED: traZODone HCL 50 MG TAB ONE (19:04)
[2020-09-04] MEDS: traZODone HCL 50 MG TAB PO SCH (20:30)
[2020-09-04] MEDS: [UNRECOGNIZED DRUG - OTHER] OP SCH (20:39)
[2020-09-04] MEDS: LATANOPROST 0.005% OPTH SOL 2.5 ML BTTL BOTH_EYES SCH (20:43)
[2020-09-04] MEDS ORDERED: TEMAZEPAM 15 MG CAP ONE (21:16)
[2020-09-04] MEDS: TEMAZEPAM 15 MG CAP PO PRN (21:19)
[2020-09-05] MEDS: PANTOPRAZOLE SODIUM IV 40 MG VIAL IV SCH (06:14)
[2020-09-05] MEDS: ALBUTEROL INHALER 64 PUFF/8GM INH SCH ×4 (08:25→19:40)
[2020-09-05] MEDS ORDERED: ASPIRIN (CHEWABLE) 81 MG TAB PO SCH (09:00)
[2020-09-05] MEDS: cefTRIAXone SODIUM 1 GM in SODIUM CHL 0.9% 50ML MIN-BAG+ 50 ML IVPB SCH (09:07)
[2020-09-05] MEDS: APIXABAN 5 MG TAB PO SCH ×2 (09:07→20:08)
[2020-09-05] MEDS: ASPIRIN TABLET 325 MG TAB PO SCH (09:07)
[2020-09-05] MEDS: FLUoxetine HCL 20 MG CAP PO SCH (09:08)
[2020-09-05] MEDS: DEXAMETHASONE INJ 10 MG/ML VIAL IV SCH (09:08)
[2020-09-05] MEDS: BIFIDOBACTERIUM INFANTIS 4 MG CAP PO SCH ×2 (09:08→20:07)
[2020-09-05] MEDS: GABAPENTIN 100 MG CAP PO SCH ×2 (09:08→20:08)
[2020-09-05] MEDS: guaiFENesin ER TAB 600 MG TAB PO SCH ×2 (09:08→20:08)
[2020-09-05] MEDS: BISOPROLOL FUMARATE 10 MG PO SCH (09:10)
[2020-09-05] MEDS: NYSTATIN POWDER 15GM BTTL TOP SCH ×2 (09:10→20:09)
[2020-09-05] MEDS: BUMETANIDE TAB 2 MG TAB PO SCH (09:12)
[2020-09-05] MEDS: SODIUM CHLORIDE 0.9% (FLUSH) 10 ML SYG IV SCH ×2 (09:14→20:09)
[2020-09-05] MEDS: AZITHROMYCIN IV 500 MG in SODIUM CHLORIDE 0.9% 250ML 250 ML IVPB SCH (10:16)
[2020-09-05] MEDS: DIGOXIN 0.125 MG TAB PO SCH (12:03)
[2020-09-05] MEDS: REMDESIVIR 100 MG in SODIUM CHLORIDE 0.9% 250ML 250 ML IVPB SCH (12:03)
--- NOTE | 2020-09-05 19:38 | PN ---
SUPERVISING PHYSICIAN: Aristeo Miller MD DATE: 09/05/20 SUBJECTIVE: The patient seems to be doing okay. She has not had any complaints. She had a little bit of shortness of breath with exertion, but otherwise she is doing fine. She has remained afebrile. Vital signs stable remain stable. OBJECTIVE: VITAL SIGNS: Temperature 97.3, pulse 60, blood pressure 132/70, saturation 95% on 1 liter nasal cannula at rest. GENERAL: The patient is resting comfortably. She is alert. CHEST: Diminished towards the bases. No other rhonchi, wheezing or rales noted. HEART: Slightly irregular rate and rhythm. ABDOMEN: Soft, nontender. Positive bowel sounds. EXTREMITIES: No edema. NEUROLOGIC: Alert and oriented times three. LABORATORY: White count down to 7,000. Chemistries show sodium and potassium stable. Anion gap is normal. BUN 38, creatinine 1.92 compared to 2.13 on admission. Calcium 8.2, magnesium 2.2 which is up from 1.6 yesterday. MICROBIOLOGY: Blood cultures remain negative after 24 hours. RADIOLOGY: No additional radiographic studies today. ASSESSMENT: 1. Covid pneumonitis with developing bilateral pneumonia. 2. History of C. difficile infection in 2018. 3. Chronic atrial fibrillation on anticoagulation and weight weight control medications. 4. Congestive heart failure with diastolic etiology. 5. Hypertension. 6. Peripheral vascular disease. 7. History of pulmonary nodules followed by Dr. Benson. 8. Gastroesophageal reflux disease. 9. Chronic colonic polyps. 10. Renal insufficiency. 11. Glaucoma. PLAN: We will continue current plan of care for treatment of underlying pneumonia with Rocephin and azithromycin. She is on Decadron, but we have not put her on any other anticoagulants other than Eliquis. She is on her home medications for rate control, Lanoxin and Cardizem. She is on Remdesivir. We will continue aggressive pulmonary hygiene and hopefully be able to transition her to outpatient management in the next couple of days. Until then, we will continue to monitor and treat as needed. #[id number] [facility]
[2020-09-05] MEDS: TEMAZEPAM 15 MG CAP PO PRN (20:07)
[2020-09-05] MEDS: traZODone HCL 50 MG TAB PO SCH (20:08)
[2020-09-05] MEDS: LATANOPROST 0.005% OPTH SOL 2.5 ML BTTL BOTH_EYES SCH (20:09)
[2020-09-05] MEDS: [UNRECOGNIZED DRUG - OTHER] OP SCH (20:10)
[2020-09-06] MEDS: PANTOPRAZOLE SODIUM IV 40 MG VIAL IV SCH (06:06)
--- NOTE | 2020-09-06 08:31 | RAD ---
: 1935. Technique: Portable AP chest x-ray. Comparison: September 03, 2020. Clinical history: covid PNA. Heart size: Heart size is borderline enlarged unchanged. Right transvenous pacemaker. Lungs: There is almost complete clearing of the previous right upper lobe pneumonia since September 03. Residual perihilar bronchovascular opacity. Elevated right diaphragm redemonstrated Pleura: No pleural effusion. No pneumothorax. Mediastinum and adolfo: Unremarkable. Skeletal: Unremarkable. Support tubings: None. Impression: 1. Improving pneumonia. Electronically signed by: Woody Mccallum MD 09/06/2020 8:30 AM EXPORT FREIGHT MANAGER
[2020-09-06] MEDS: ALBUTEROL INHALER 64 PUFF/8GM INH SCH ×4 (08:35→20:30)
[2020-09-06] MEDS: cefTRIAXone SODIUM 1 GM in SODIUM CHL 0.9% 50ML MIN-BAG+ 50 ML IVPB SCH (08:49)
[2020-09-06] MEDS: BIFIDOBACTERIUM INFANTIS 4 MG CAP PO SCH ×2 (08:50→20:44)
[2020-09-06] MEDS: APIXABAN 5 MG TAB PO SCH ×2 (08:50→20:43)
[2020-09-06] MEDS: FLUoxetine HCL 20 MG CAP PO SCH (08:50)
[2020-09-06] MEDS: ASPIRIN TABLET 325 MG TAB PO SCH (08:51)
[2020-09-06] MEDS: GABAPENTIN 100 MG CAP PO SCH ×2 (08:51→20:44)
[2020-09-06] MEDS: guaiFENesin ER TAB 600 MG TAB PO SCH ×2 (08:51→20:44)
[2020-09-06] MEDS: DEXAMETHASONE INJ 10 MG/ML VIAL IV SCH (08:51)
[2020-09-06] MEDS: BUMETANIDE TAB 2 MG TAB PO SCH (08:52)
[2020-09-06] MEDS: BISOPROLOL FUMARATE 10 MG PO SCH (08:53)
[2020-09-06] MEDS ORDERED: BISACODYL TAB 5 MG TAB PO ONE (08:54)
[2020-09-06] MEDS ORDERED: POLYETHYLENE GLYCOL 3350 17 GM PCKT ONE (08:54)
[2020-09-06] MEDS: BISACODYL TAB 5 MG TAB PO SCH (08:56)
[2020-09-06] MEDS: POLYETHYLENE GLYCOL 3350 17 GM PCKT PO SCH (08:56)
[2020-09-06] MEDS: SODIUM CHLORIDE 0.9% (FLUSH) 10 ML SYG IV SCH ×2 (09:19→20:44)
[2020-09-06] MEDS: NYSTATIN POWDER 15GM BTTL TOP SCH ×2 (09:19→20:44)
[2020-09-06] MEDS: AZITHROMYCIN IV 500 MG in SODIUM CHLORIDE 0.9% 250ML 250 ML IVPB SCH (09:49)
[2020-09-06] MEDS: REMDESIVIR 100 MG in SODIUM CHLORIDE 0.9% 250ML 250 ML IVPB SCH (12:10)
[2020-09-06] MEDS: DIGOXIN 0.125 MG TAB PO SCH (12:10)
--- NOTE | 2020-09-06 18:20 | PN ---
SUPERVISING PHYSICIAN: Aristeo Miller MD DATE: 09/06/20 SUBJECTIVE: The patient seems to be doing pretty good. She has not had any increase in shortness of breath. She is maintaining her 02 saturations pretty well which is low nasal cannula. No reported chest pains. No nausea or vomiting. The patient does feel like she has improved in regard to her shortness of breath. OBJECTIVE: VITAL SIGNS: Temperature 97.8, pulse 60, blood pressure 136/82, [id number], saturation 95% on 1 liter nasal cannula. GENERAL: The patient looks to be resting comfortably. She is no acute distress. She is alert. CHEST: Sounds just diminished towards the bases. No obvious rales or rhonchi. HEART: Regular rate and rhythm. ABDOMEN: Soft, nontender. Positive bowel sounds. EXTREMITIES: No edema. NEUROLOGIC: Alert and oriented times three. LABORATORY: White count now 8,700. Hemoglobin 9.9, hematocrit 29.9. Platelet count 341,000. Differential does show a left shift. Coagulation studies show D-dimer now down to 553, that is from admission of 1400. Chemistries showing fairly stable. Carbon dioxide a little low at 19. Chloride up a little bit to 112, creatinine 1.92. Liver functions all within normal limits. C-reactive protein is down to 4.1. MICROBIOLOGY: Blood cultures remain negative after 48 hours. RADIOLOGY: Single view chest x-ray per radiology interpretation this morning showed improving pneumonia. ASSESSMENT: 1. Covid pneumonitis with developing bilateral pneumonia. 2. History of C. difficile infection in 2018. 3. Chronic atrial fibrillation on anticoagulation and weight weight control medications. 4. Congestive heart failure with diastolic etiology. 5. Hypertension. 6. Peripheral vascular disease. 7. History of pulmonary nodules followed by Dr. Benson. 8. Gastroesophageal reflux disease. 9. Chronic colonic polyps. 10. Renal insufficiency. 11. Glaucoma. PLAN: We will continue current plan of care as patient is showing some improvement both clinically and radiographically and her labs are improving as well. She does remain on azithromycin, Rocephin, she is already on Eliquis due to her atrial fibrillation and she is on diuretic control with dig and Cardizem. We will continue the Remdesivir. I did add a stool softener and apparently she has not had a bowel movement this morning. We will continue to monitor close and follow as needed. I think the patient will probably not be able to discharge at least until Tuesday given the patient's advanced age, multiple rounds of Covid infection and the fact that she does live at [facility] and I am not sure she will be able to go back anytime soon but we will have to contact [facility] and see what their protocol is for Covid-19 patients. #[id number] MTDD
[2020-09-06] MEDS: traZODone HCL 50 MG TAB PO SCH (20:43)
[2020-09-06] MEDS: TEMAZEPAM 15 MG CAP PO PRN (20:43)
[2020-09-06] MEDS: [UNRECOGNIZED DRUG - OTHER] OP SCH (20:44)
[2020-09-06] MEDS: LATANOPROST 0.005% OPTH SOL 2.5 ML BTTL BOTH_EYES SCH (20:44)
[2020-09-07] MEDS: IV SET AND CAP CHANGE INJ INJ SCH (04:10)
[2020-09-07] MEDS: PANTOPRAZOLE SODIUM IV 40 MG VIAL IV SCH (06:22)
[2020-09-07] MEDS: ALBUTEROL INHALER 64 PUFF/8GM INH SCH ×4 (08:05→22:00)
[2020-09-07] MEDS: cefTRIAXone SODIUM 1 GM in SODIUM CHL 0.9% 50ML MIN-BAG+ 50 ML IVPB SCH (08:57)
[2020-09-07] MEDS: DEXAMETHASONE INJ 10 MG/ML VIAL IV SCH (08:57)
[2020-09-07] MEDS: ASPIRIN TABLET 325 MG TAB PO SCH (08:57)
[2020-09-07] MEDS: NYSTATIN POWDER 15GM BTTL TOP SCH ×2 (08:58→20:07)
[2020-09-07] MEDS: guaiFENesin ER TAB 600 MG TAB PO SCH ×2 (08:58→20:06)
[2020-09-07] MEDS: GABAPENTIN 100 MG CAP PO SCH ×2 (08:58→20:06)
[2020-09-07] MEDS: BIFIDOBACTERIUM INFANTIS 4 MG CAP PO SCH ×2 (08:58→20:06)
[2020-09-07] MEDS: FLUoxetine HCL 20 MG CAP PO SCH (08:58)
[2020-09-07] MEDS: SODIUM CHLORIDE 0.9% (FLUSH) 10 ML SYG IV SCH ×2 (08:58→20:06)
[2020-09-07] MEDS: APIXABAN 5 MG TAB PO SCH ×2 (08:58→20:07)
[2020-09-07] MEDS: BISOPROLOL FUMARATE 10 MG PO SCH (08:59)
[2020-09-07] MEDS: BUMETANIDE TAB 2 MG TAB PO SCH (08:59)
[2020-09-07] MEDS ORDERED: POLYETHYLENE GLYCOL 3350 17 GM PCKT ONE (09:12)
[2020-09-07] MEDS ORDERED: BISACODYL TAB 5 MG TAB PO ONE (09:12)
[2020-09-07] MEDS: POLYETHYLENE GLYCOL 3350 17 GM PCKT PO SCH (09:13)
[2020-09-07] MEDS: BISACODYL TAB 5 MG TAB PO SCH (09:13)
[2020-09-07] MEDS: AZITHROMYCIN IV 500 MG in SODIUM CHLORIDE 0.9% 250ML 250 ML IVPB SCH (10:25)
[2020-09-07] MEDS: DIGOXIN 0.125 MG TAB PO SCH (11:53)
[2020-09-07] MEDS: REMDESIVIR 100 MG in SODIUM CHLORIDE 0.9% 250ML 250 ML IVPB SCH (11:58)
[2020-09-07] MEDS: traZODone HCL 50 MG TAB PO SCH (20:06)
[2020-09-07] MEDS: LATANOPROST 0.005% OPTH SOL 2.5 ML BTTL BOTH_EYES SCH (20:45)
[2020-09-07] MEDS: [UNRECOGNIZED DRUG - OTHER] OP SCH (20:46)
[2020-09-08] MEDS: PANTOPRAZOLE SODIUM IV 40 MG VIAL IV SCH (05:59)
--- NOTE | 2020-09-08 06:12 | RAD ---
EXAM: XR Chest, 1 View CLINICAL HISTORY: COVID PNA TECHNIQUE: Frontal view of the chest. COMPARISON: 09/06/2020 FINDINGS: Lungs: Stable bilateral interstitial thickening. Little interval change allowing for patient rotation and right perihilar airspace disease. Pleural space: No pneumothorax. No pleural effusion. Heart: Stable enlarged cardiac shadow. Mediastinum: No abnormality noted. Bones/joints: No osseous destruction or sclerosis noted. Tubes, lines and devices: Stable cardiac pacing wires in right atrium and ventricle. IMPRESSION: Stable abnormalities as above. Recommend continued follow-up. Electronically signed by: Patricia Coppola MD 09/08/2020 6:10 AM [facility]
--- NOTE | 2020-09-08 08:00 | PN ---
SUPERVISING PHYSICIAN: Aristeo Miller MD DATE: 09/07/20 SUBJECTIVE: The patient seems to be doing better today. She is not having any significant shortness of breath, still has a little bit of shortness of breath with exertion effort. She did have a large bowel movement. She has not had any nausea, abdominal pain or chest pain. OBJECTIVE: VITAL SIGNS: She remains afebrile at 97.9, pulse 61, blood pressure 145/61, saturation 95% on 1 liter nasal cannula. GENERAL: The patient looks to be resting comfortably. She is no acute distress. CHEST: Sounds just diminished towards the bases. No obvious rales or rhonchi. HEART: Regular rate and rhythm. ABDOMEN: Soft, nontender. Positive bowel sounds. EXTREMITIES: No edema. NEUROLOGIC: Alert and oriented times three. LABORATORY: Chemistries show creatinine down to 1.76 compared to admission of 2.13. Electrolytes remain within normal limits except for a slightly elevated persistent chloride of 112. Calcium, 8.3. RADIOLOGY: No additional radiographic studies today. ASSESSMENT: 1. Covid pneumonitis with developing bilateral pneumonia. 2. History of C. difficile infection in 2018. 3. Chronic atrial fibrillation on anticoagulation and weight weight control medications. 4. Congestive heart failure with diastolic etiology. 5. Hypertension. 6. Peripheral vascular disease. 7. History of pulmonary nodules followed by Dr. Benson. 8. Gastroesophageal reflux disease. 9. Chronic colonic polyps. 10. Renal insufficiency. 11. Glaucoma. PLAN: We will continue with current plan of care with coverage for treatment of her Cruz, azithromycin Rocephin and Remdesivir per protocol. Will continue to monitor labs and hopefully be able to transition her to outpatient management within the next one to two days. She is an [facility] resident so will have to follow with [facility] to see if she is going to be able to go back to there due to her Covid status, which we can address on Tuesday. Until then, we will continue to monitor and treat as needed. #[id number] MTDD
[2020-09-08] MEDS: ALBUTEROL INHALER 64 PUFF/8GM INH SCH ×3 (08:35→16:31)
[2020-09-08] MEDS: ASPIRIN TABLET 325 MG TAB PO SCH (08:53)
[2020-09-08] MEDS: BIFIDOBACTERIUM INFANTIS 4 MG CAP PO SCH (08:53)
[2020-09-08] MEDS: BUMETANIDE TAB 2 MG TAB PO SCH (08:54)
[2020-09-08] MEDS: BISOPROLOL FUMARATE 10 MG PO SCH (08:54)
[2020-09-08] MEDS: DEXAMETHASONE INJ 10 MG/ML VIAL IV SCH (08:55)
[2020-09-08] MEDS: APIXABAN 5 MG TAB PO SCH (08:55)
[2020-09-08] MEDS: cefTRIAXone SODIUM 1 GM in SODIUM CHL 0.9% 50ML MIN-BAG+ 50 ML IVPB SCH (08:56)
[2020-09-08] MEDS: FLUoxetine HCL 20 MG CAP PO SCH (08:56)
[2020-09-08] MEDS: guaiFENesin ER TAB 600 MG TAB PO SCH (08:56)
[2020-09-08] MEDS: SODIUM CHLORIDE 0.9% (FLUSH) 10 ML SYG IV SCH (08:56)
[2020-09-08] MEDS: NYSTATIN POWDER 15GM BTTL TOP SCH (08:56)
[2020-09-08] MEDS: GABAPENTIN 100 MG CAP PO SCH (08:56)
[2020-09-08] MEDS: AZITHROMYCIN IV 500 MG in SODIUM CHLORIDE 0.9% 250ML 250 ML IVPB SCH (10:13)
[2020-09-08] MEDS: REMDESIVIR 100 MG in SODIUM CHLORIDE 0.9% 250ML 250 ML IVPB SCH (12:17)
[2020-09-08] MEDS: DIGOXIN 0.125 MG TAB PO SCH (12:17)
[2020-09-08 16:55] VITALS: BP 170/68; TEMP 98; O2SAT 97
[2020-09-09] MEDS ORDERED: PANTOPRAZOLE SODIUM TAB 40 MG PO SCH (06:30)
--- NOTE | 2020-09-09 09:25 | DS ---
SUPERVISING PHYSICIAN: Miguel Angel Gaytan MD ADMISSION DIAGNOSES: 1. Covid-19 pneumonitis. 2. Chronic renal failure with creatinines close to baseline. 3. Congestive heart failure with diastolic etiology and ejection fraction of about 60%, echo in 2016. She did have an echocardiogram under her last hospitalization approximately a month ago. There is no echo to review. 4. Chronic atrial fibrillation on Eliquis. 5. Previous history of C. difficile. 6. Hypertension. 7. Peripheral vascular disease. 8. History of pulmonary nodules that are being seen by Dr. Martinez. 9. Gastroesophageal reflux disease. DISCHARGE DIAGNOSIS: 1. Covid pneumonitis with developing bilateral pneumonia. 2. History of C. difficile infection in 2018. 3. Chronic atrial fibrillation on anticoagulation and weight weight control medications. 4. Congestive heart failure with diastolic etiology. 5. Hypertension. 6. Peripheral vascular disease. 7. History of pulmonary nodules followed by Dr. Benson. 8. Gastroesophageal reflux disease. 9. Chronic colonic polyps. 10. Renal insufficiency. 11. Glaucoma. REASON FOR HOSPITALIZATION: This is an 84-year-old female patient from the residential. She has been diagnosed with Covid-19 pneumonia. She has had progressively worsening of shortness of breath as well as some nausea and came to the Emergency Room. Initial vital signs were temperature 97.6, heart rate of 73, blood pressure 175/94, respiratory rate 27, oxygen saturation 78% on room air, after applying oxygen it came up to 93% on 5 liters nasal cannula. [place] [address], hemoglobin 10.1, hematocrit 30.9. She had a left shift on her differential. D-dimer was 1400. BUN 33, creatinine 2.13. Baseline creatinine is about 1.92. BNP 1,330. Troponin 0.03. Urinalysis showed moderate urine blood with 3 to 5 urine RBCs. Blood cultures were drawn. She was positive for Covid-19. Chest x-ray shows increased asymmetric right greater than left interstitial lung disease, consider asymmetrical pulmonary edema and aspiration as well as pneumonia including viral etiology. She was given azithromycin and Rocephin in the Emergency Room as well as breathing treatments. Remdesivir was started and she was given some Decadron. She was admitted to the hospital in stable condition. It should be noted that she was in hospital in June 2020 for bilateral pneumonia. She did not have Covid-19. After treatment in the hospital, she was sent to [facility] for rehabilitation. LABORATORY: White count normalized to 8,700, hemoglobin 9.9 and hematocrit 29.9, platelet count 341,000, differential did show a left shift. Coagulation studies showed D-dimer initially elevated at 1400, prior to discharge was down to 159. Chemistries at discharge showed sodium 140, potassium 4.6, creatinine was down to 1.76 and that was from admission of 2.13. Liver functions all within normal limits. C-reactive protein down to 1.9 from a high of 7.8. Urinalysis showed a moderate amount of blood with 3 to 5 WBCs, otherwise within normal limits. MICROBIOLOGY: Blood cultures were negative at 4 days. Nasal swab for Covid was positive. RADIOLOGY: CT of the chest on admission and per radiology interpretation showed mild bilateral pulmonary infiltrates more prominent in the right lung suggesting bilateral pneumonia. Please see those reports for details. Final chest x-ray on 09/08/20 showed stable abnormalities, recommended followup. HOSPITAL COURSE: Ms. Calixto was admitted, as noted, for treatment of underlying Covid-19 pneumonia. She was on Remdesivir, azithromycin ,Rocephin, Decadron. She progressed well with her treatment course and was found to be clinically stable. On date of discharge oxygen saturation was 90% on room air with some mild desaturations on ambulation. Temperature 98.3, pulse 63, blood pressure 183/70. PLAN: Ms. Calixto is discharged back to [facility]. She is to followup with her primary care physician, Dr. Miller, in 7 days for followup x-ray. She was sent home on continued Decadron and Cefdinir. She was already on Eliquis. She has a history of atrial fibrillation. She is to resume her usual diet and continue activities as tolerated per physical therapy. Arrangements were made to have oxygen at [facility]. DISCHARGE MEDICATIONS: 1. Decadron 60 mg, #5, no refills. 2. Cefdinir 300 mg daily, #5, renally dosed. CONDITION ON DISCHARGE: Stable and improving. DISPOSITION: Patient discharged back to [facility]. #[id number] MTDD
== END 2020-09-08 16:40 | DRG 177 ==
LOC: ER 20:00 → MS 23:07 → OBSVTOIN 23:07
PROVIDERS: ADMIT Nurse Practitioner Acute Care; ATTEND Nurse Practitioner Family
PROC: XW033E5 Introduction of Remdesivir Anti-infective into Peripheral Vein, Percutaneous Approach, New Technology Group 5 (ICD-10-PCS; principal; 2020-09-03)
DX: U07.1 COVID-19 (principal); J12.89 Other viral pneumonia; I50.32 Chronic diastolic (congestive) heart failure; I48.20 Chronic atrial fibrillation, unspecified; I13.0 Hypertensive heart and chronic kidney disease with heart failure and stage 1 through stage 4 chronic kidney disease, or unspecified chronic kidney disease; N18.9 Chronic kidney disease, unspecified; I73.9 Peripheral vascular disease, unspecified; R91.8 Other nonspecific abnormal finding of lung field; K21.9 Gastro-esophageal reflux disease without esophagitis; H40.9 Unspecified glaucoma; Z79.01 Long term (current) use of anticoagulants; Z66 Do not resuscitate; Z95.0 Presence of cardiac pacemaker; Z88.5 Allergy status to narcotic agent; Z88.8 Allergy status to other drugs, medicaments and biological substances; Z79.1 Long term (current) use of non-steroidal anti-inflammatories (NSAID); Z79.899 Other long term (current) drug therapy

== ENCOUNTER → 2020-10-09 | Outpatient (CLI) | payer MEDICARE, OTHER | LOC: BFHH 14:19 | PROVIDERS: ATTEND Family Medicine | DX: U07.1 COVID-19 (principal); J12.89 Other viral pneumonia; J44.0 Chronic obstructive pulmonary disease with (acute) lower respiratory infection; I13.0 Hypertensive heart and chronic kidney disease with heart failure and stage 1 through stage 4 chronic kidney disease, or unspecified chronic kidney disease; I48.91 Unspecified atrial fibrillation; N18.9 Chronic kidney disease, unspecified; D64.9 Anemia, unspecified; I50.9 Heart failure, unspecified ==

== ENCOUNTER → 2020-11-14 | Outpatient (CLI) | payer MEDICARE, OTHER | LOC: BFHH 15:43 | PROVIDERS: ATTEND Family Medicine | DX: I13.0 Hypertensive heart and chronic kidney disease with heart failure and stage 1 through stage 4 chronic kidney disease, or unspecified chronic kidney disease (principal); N18.30 Chronic kidney disease, stage 3 unspecified; I50.42 Chronic combined systolic (congestive) and diastolic (congestive) heart failure; D64.9 Anemia, unspecified ==